=== PATIENT | male | born 1965 | race Caucasian/White ===

== ENCOUNTER 2017-10-10 18:13 | Inpatient (IN) | payer BC ==
[2017-10-10] MEDS ORDERED: MORPHINE SULFATE 10 MG/ML INJ IV ONE (19:53)
--- NOTE | 2017-10-10 19:54 | ER Document Report ---
ED Medical Screen (RME) - General Chief Complaint: Back Pain Stated Complaint: RIGHT SIDE PAIN Time Seen by Provider: 10/10/17 19:49 Mode of Arrival: Medic Information source: Patient Notes: 52-year-old male presents after mechanical fall on ice landing on his back hitting his right posterior ribs. Patient denies any shortness of breath notes pain with movement I have greeted and performed a rapid initial assessment of this patient. A comprehensive ED assessment and evaluation of the patient, analysis of test results and completion of the medical decision making process will be conducted by additional ED providers. PHYSICAL EXAMINATION: GENERAL: Well-appearing, well-nourished and in no acute distress. HEAD: Atraumatic, normocephalic. EYES: Pupils equal round extraocular movements intact, conjunctiva are normal. ENT: Nares patent NECK: Normal range of motion LUNGS: No respiratory distress Musculoskeletal: Normal range of motion NEUROLOGICAL: Normal speech, normal gait. PSYCH: Normal mood, normal affect. SKIN: Warm, Dry, normal turgor, no rashes or lesions noted. TRAVEL OUTSIDE OF THE [place] IN LAST 30 DAYS: No - Related Data Allergies/Adverse Reactions: chlorpheniramine [From Actifed Cold-Allergy] Allergy (Verified 10/10/17 19:43) phenylephrine [From Actifed Cold-Allergy] Allergy (Verified 10/10/17 19:43) pseudoephedrine [From Actifed Cold-Allergy] Allergy (Verified 10/10/17 19:43) triprolidine [From Actifed Cold-Allergy] Allergy (Verified 10/10/17 19:43) Past Medical History - Social History Chew tobacco use (# tins/day): No Frequency of alcohol use: Social Drug Abuse: None - Past Medical History Cardiac Medical History: Reports: Hx Hypercholesterolemia, Hx Hypertension Pulmonary Medical History: Reports: Hx COPD Renal/ Medical History: Denies: Hx Peritoneal Dialysis Psychiatric Medical History: Reports: Hx Depression Physical Exam - Vital signs Vitals: Temp Pulse Resp BP Pulse Ox 98.2 F 89 22 H 136/83 H 92 10/10/17 18:40 10/10/17 18:40 10/10/17 18:40 10/10/17 18:40 10/10/17 18:40 Course - Vital Signs Vital signs: Temp Pulse Resp BP Pulse Ox 98.2 F 89 22 H 136/83 H 92 10/10/17 18:40 10/10/17 18:40 10/10/17 18:40 10/10/17 18:40 10/10/17 18:40
[2017-10-10 20:49] LABS: HEMATOCRIT 53.5 % (37.9-51.0); HEMOGLOBIN 18.2 g/dL (13.5-17.0); MEAN CORPUSCULAR HEMOGLOBIN 33.5 pg (27.0-33.4); MEAN CORPUSCULAR VOLUME 99 fl (80-97); PLATELET COUNT 280 10^3/uL (150-450); RED BLOOD COUNT 5.44 10^6/uL (4.35-5.55); RED CELL DISTRIBUTION WIDTH 13.1 % (11.5-14.0); WHITE BLOOD COUNT 21.4 10^3/uL (4.0-10.5)
[2017-10-10 21:12] LABS: ABSOLUTE LYMPHOCYTES# (MANUAL) 1.1 10^3/uL (0.5-4.7); ABSOLUTE MONOCYTES # (MANUAL) 1.7 10^3/uL (0.1-1.4); ABSOLUTE NEUTROPHILS# (MANUAL) 18.6 10^3/uL (1.7-8.2); BASOPHILS % (MANUAL) 0 % (0-2); EOSINOPHILS % (MANUAL) 0 % (0-6); LYMPHOCYTES % (MANUAL) 4 % (13-45); MONOCYTES % (MANUAL) 8 % (3-13); SEGMENTED NEUTROPHILS % (MAN) 87 % (42-78); TOTAL CELLS COUNTED 100
[2017-10-10 21:16] LABS: PLATELET COMMENT ADEQUATE; PLATELET GIANT PRESENT; PLATELET LARGE PRESENT; RBC MORPHOLOGY COMMENT NORMO-CYTIC/CHROMIC
[2017-10-10 21:17] LABS: TOXIC GRANULATION 1+
[2017-10-10] MEDS ORDERED: HYDROMORPHONE HCL INJ/PF 2 MG/ML AMPULE IV PRN (21:47)
[2017-10-10] MEDS ORDERED: LIDOCAINE 5% (700 MG) TRANSDERMAL ADH..PATCH TP ONE (21:48)
--- NOTE | 2017-10-10 21:54 | ER Document Report ---
ED General - General Chief Complaint: Back Pain Stated Complaint: RIGHT SIDE PAIN Time Seen by Provider: 10/10/17 19:49 Mode of Arrival: Medic Notes: Patient is a 52 year old male with a past medical history of hypertension and COPD, active smoker, who presents after slipping on ice landing onto his right side. He states that since that time he has had a severe, constant, aching pain to his right low flank. He states it is worsened by movement and breathing. He has received morphine and states that it did not provide any meaningful relief of his pain. He has no history of similar injury in the past. He does not have a baseline oxygen dependence. He denies any additional injury to any other location. He has not seen his primary care doctor regarding today's concerns. TRAVEL OUTSIDE OF THE [place] IN LAST 30 DAYS: No - Related Data Allergies/Adverse Reactions: chlorpheniramine [From Actifed Cold-Allergy] Allergy (Verified 10/10/17 19:43) phenylephrine [From Actifed Cold-Allergy] Allergy (Verified 10/10/17 19:43) pseudoephedrine [From Actifed Cold-Allergy] Allergy (Verified 10/10/17 19:43) triprolidine [From Actifed Cold-Allergy] Allergy (Verified 10/10/17 19:43) Past Medical History - General Information source: Patient - Social History Smoking Status: Current Every Day Smoker Chew tobacco use (# tins/day): No Frequency of alcohol use: Social Drug Abuse: None Lives with: Spouse/Significant other Family History: Reviewed & Not Pertinent Patient has suicidal ideation: No Patient has homicidal ideation: No - Past Medical History Cardiac Medical History: Reports: Hx Hypercholesterolemia, Hx Hypertension Pulmonary Medical History: Reports: Hx COPD Renal/ Medical History: Denies: Hx Peritoneal Dialysis Psychiatric Medical History: Reports: Hx Depression Review of Systems - Review of Systems Notes: Constitutional: Negative for fever. Eyes: Negative for visual changes. ENT: Negative for facial injury Cardiovascular: Negative for chest injury. Respiratory: Negative for shortness of breath. Gastrointestinal: Negative for abdominal injury. Genitourinary: Negative for genital injury Musculoskeletal: Postive for Right lower rib pain Skin: Negative for laceration/abrasions. Neurological: Negative for head injury. Physical Exam - Vital signs Vitals: Temp Pulse Resp BP Pulse Ox 98.2 F 89 22 H 136/83 H 92 01/18/18 18:40 18 18:40 10/10/17 18:40 10/10/17 18:40 10/10/17 18:40 Interpretation: Hypoxic, Tachypneic Notes: PHYSICAL EXAMINATION: GENERAL: Appears to be in significant pain. HEAD: Atraumatic, normocephalic. EYES: Pupils equal round and reactive to light, extraocular movements intact, sclera anicteric, conjunctiva are normal. ENT: nares patent, no oral pharyngeal trauma. No hemotympanum, no Taylor's sign , no raccoon eyes. NECK: No midline cervical spine tenderness. Patient able to move their head to 45 bilaterally without any discomfort. LUNGS: Breath sounds clear to auscultation bilaterally and equal. No wheezes rales or rhonchi. HEART: Regular rate and rhythm without murmurs. CHEST WALL: No ecchymosis over the chest wall. Severe pain on palpation of the right lower posterior ribs. ABDOMEN: Soft, nontender, normoactive bowel sounds. No guarding, no rebound. No abdominal bruising EXTREMITIES: Normal range of motion, no pitting or edema. No long bone deformities. BACK: No midline spinal tenderness, step-offs, or deformities. NEUROLOGICAL: Face symmetric. Tongue protrudes midline. Extraocular motions intact. Pupils are 2 mm and equally reactive. Normal speech, normal gait. 5 out of 5 strength in both the distal and proximal upper and lower extremities bilaterally. Sensation is grossly intact throughout. Finger to nose testing normal. Pronator drift normal. PSYCH: Normal mood, normal affect. SKIN: Warm, Dry, normal turgor, no rashes or lesions noted. Course - Re-evaluation Re-evalutation: 10/10/17 21:54 Rib pain Patient presents after falling onto their ribs, complaining of focal pain to the affected area. Patient appears to be in extreme pain, and had mild hypoxia at time of presentation at 92% on room air. He is a smoker. Patient denies any additional injuries. He has focal pain to the ninth through 12th posterior lower ribs. Given his degree of pain hypoxemia, will proceed with CT of the chest to clarify. Will provide aggressive pain control and see if I can allow the patient to breathe in an acceptable way but anticipate he may require hospitalization 01/18/18 23:59 Patient continues to saturate 87-88% on room air. He has a multitude rib fractures on the right side. The CT is notable for extensive blebs in the left lung in particular but no evidence of a pneumothorax. Given patient's hypoxemia and ongoing pain control issues he will require hospitalization. I have increased the dosing of hydromorphone to try to improve his pain control. Will discuss with the surgeon on-call for trauma admission. 10/11/17 01:17 I have discussed with Dr. Jayjay Grove who has agreed to hospitalize the patient given his oxygen dependence and injuries. - Vital Signs Vital signs: Temp Pulse Resp BP Pulse Ox 98.2 F 78 16 115/74 91 L 10/10/17 18:40 10/10/17 22:11 10/10/17 22:49 10/10/17 22:11 10/10/17 22:49 - Laboratory Result Diagrams: 10/10/17 20:29 10/10/17 21:27 Laboratory results interpreted by me: 10/10/17 10/10/17 20:29 21:27 WBC 21.4 H Hgb 18.2 H Hct 53.5 H MCV 99 H MCH 33.5 H Seg Neuts % (Manual) 87 H Lymphocytes % (Manual) 4 L Abs Neuts (Manual) 18.6 H Abs Monocytes (Manual) 1.7 H BUN 23 H Glucose 128 H - Diagnostic Test Radiology reviewed: Image reviewed, Reports reviewed Radiology results interpreted by me: 10/11/17 00:00 CT chest: Multiple rib fractures on the right side, extensive blebs on the left lung Discharge - Discharge Clinical Impression: Multiple fractures of ribs, right side, initial encounter for closed fracture, Hypoxemia Fall Qualifiers: Encounter type: initial encounter Qualified Code(s): W19.XXXA - Unspecified fall, initial encounter Condition: Fair Disposition: ADMITTED INPATIENT Admitting Provider: Surgicalist - [facility] Unit Admitted: Surgical Floor
[2017-10-10 22:03] LABS: ALANINE AMINOTRANSFERASE 49 U/L (21-72); ALBUMIN 4.7 g/dL (3.5-5.0); ALKALINE PHOSPHATASE 108 U/L (38-126); ANION GAP 14 (5-19); ASPARTATE AMINO TRANSFERASE 46 U/L (17-59); BILIRUBIN,DIRECT 0.2 mg/dL (0.0-0.4); BILIRUBIN,TOTAL 0.4 mg/dL (0.2-1.3); BLOOD UREA NITROGEN 23 mg/dL (7-20); CALCIUM 9.9 mg/dL (8.4-10.2); CARBON DIOXIDE 23 mmol/L (22-30); CHLORIDE 105 mmol/L (98-107); GLUCOSE 128 mg/dL (75-110); POTASSIUM 4.3 mmol/L (3.6-5.0); SODIUM 142.1 mmol/L (137-145); TOTAL PROTEIN 7.8 g/dL (6.3-8.2)
[2017-10-10] MEDS ORDERED: KETOROLAC TROMETHAMINE INJ/PF 30 MG/1 ML SDV IV ONE (23:08)
--- NOTE | 2017-10-10 23:58 | RADIOLOGY REPORT (SQ) ---
EXAM DESCRIPTION: CT CHEST WITH CLINICAL HISTORY: fall on ice, right sided post rib pain COMPARISON: None. TECHNIQUE: Axial CT images of the chest were acquired after the administration of intravenous contrast. Coronal and sagittal reconstructions were obtained. This exam was performed according to our departmental dose-optimization program which includes use of Automated Exposure Control, adjustment of the mA and/or kV according to patient size and/or use of iterative reconstruction technique. FINDINGS: Neck base: Unremarkable. Mediastinum: Unremarkable. Lymph Nodes: No lymphadenopathy. Heart and pericardium: Coronary artery calcifications. Aorta: No aneurysm. Pulmonary Artery: Unremarkable. Central Airways: Patent. Pleura: No pleural effusion. Lungs: Large left upper lobe bulla favored over pneumothorax. Severe emphysema. Right lower lobe partial consolidation. Left lower lobe atelectasis. No suspicious pulmonary nodule or mass. Upper abdomen: Subcentimeter hypoattenuating lesion within the left hepatic lobe, likely a small cyst or hemangioma. 15 mm right adrenal nodule measuring 24 Hounsfield units. Nodular thickening of the left adrenal. Bones and soft tissues: Mildly displaced fractures of the right eighth, ninth, and 10th ribs. Nondisplaced fracture of the right 11th rib. IMPRESSION: Right eighth, ninth, 10th, and 11th rib fractures. Prominent left upper lobe bullous emphysema. Cystic spaces in the left upper thorax are favored to represent bulla over pneumothorax given lack of left-sided rib fractures. Bilateral lower lobe consolidation, favored to represent atelectasis over pneumonia given rib fractures. Bilateral adrenal nodules. These likely represent adrenal adenomas however may be confirmed with dedicated adrenal CT or MRI.
[2017-10-11] MEDS ORDERED: KETOROLAC TROMETHAMINE INJ/PF 30 MG/1 ML SDV IV ONE (01:40)
[2017-10-11] MEDS ORDERED: MORPHINE SULFATE 10 MG/ML INJ IV PRN (01:47)
--- NOTE | 2017-10-11 01:50 | PDOC H&P ---
History of Present Illness Patient complains of: Right-sided posterior chest pain History of Present Illness: MOHSEN EDGE is a 52 year old male status post fall on the ice landing on his right chest with associated pain. Patient was noted with decreased oxygen saturations requiring supplemental oxygen. Patient denies any other sites of pain other than very mild soreness of the right elbow. He denies any loss of consciousness. He does not hurt in his hip. No abdominal pain. Patient does drink almost every day and has had some alcohol today. Past Medical History Cardiac Medical History: Reports: Hyperlipidema, Hypertension Pulmonary Medical History: Reports: Chronic Obstructive Pulmonary Disease (COPD) Psychiatric Medical History: Reports: Depression Past Surgical History Past Surgical History: Reports: Other - Left orchiectomy in the remote past. Social History Lives with: Spouse/Significant other Smoking Status: Current Every Day Smoker Family History Family History: Reviewed & Not Pertinent Parental Family History Reviewed: No Children Family History Reviewed: No Sibling(s) Family History Reviewed.: No Medication/Allergy Allergies/Adverse Reactions: chlorpheniramine [From Actifed Cold-Allergy] Allergy (Verified 10/10/17 19:43) phenylephrine [From Actifed Cold-Allergy] Allergy (Verified 10/10/17 19:43) pseudoephedrine [From Actifed Cold-Allergy] Allergy (Verified 10/10/17 19:43) triprolidine [From Actifed Cold-Allergy] Allergy (Verified 10/10/17 19:43) Physical Exam Vital Signs: Temp Pulse Resp BP Pulse Ox 98.2 F 78 16 115/74 91 L 10/10/17 18:40 10/10/17 22:11 10/10/17 22:49 10/10/17 22:11 10/10/17 22:49 Intake & Output 10/09/17 10/10/17 10/11/17 06:59 06:59 06:59 Weight 103.1 kg General appearance: PRESENT: no acute distress, cooperative Eye exam: PRESENT: conjunctiva pink Neck exam: PRESENT: other - Supple with no vertebral tenderness. Respiratory exam: PRESENT: decreased breath sounds - Tenderness along the right posterior chest but no crepitus and no bruising. Cardiovascular exam: PRESENT: RRR Pulses: PRESENT: normal radial pulses GI/Abdominal exam: PRESENT: other - Soft, nondistended, nontender to palpation. Extremities exam: PRESENT: other - Full range of motion without pain with range of motion. Very minimal right elbow tenderness with no swelling and no bruising. Right arm neurovascularly intact distally. Neurological exam: PRESENT: alert, awake Psychiatric exam: PRESENT: appropriate affect Skin exam: PRESENT: warm Results Laboratory Results: 10/10/17 20:29 10/10/17 21:27 10/10/17 10/10/17 10/10/17 20:29 20:29 21:27 WBC 21.4 H RBC 5.44 Hgb 18.2 H Hct 53.5 H MCV 99 H MCH 33.5 H MCHC 34.0 RDW 13.1 Plt Count 280 Seg Neutrophils % Not Reportable Lymphocytes % Not Reportable Monocytes % Not Reportable Eosinophils % Not Reportable Basophils % Not Reportable Absolute Neutrophils Not Reportable Absolute Lymphocytes Not Reportable Absolute Monocytes Not Reportable Absolute Eosinophils Not Reportable Absolute Basophils Not Reportable Sodium Cancelled 142.1 Potassium Cancelled 4.3 Chloride Cancelled 105 Carbon Dioxide Cancelled 23 Anion Gap Cancelled 14 BUN Cancelled 23 H Creatinine Cancelled 1.02 Est GFR ( Amer) Cancelled > 60 Est GFR (Non-Af Amer) Cancelled > 60 Glucose Cancelled 128 H Calcium Cancelled 9.9 Total Bilirubin Cancelled 0.4 AST Cancelled 46 ALT Cancelled 49 Alkaline Phosphatase Cancelled 108 Total Protein Cancelled 7.8 Albumin Cancelled 4.7 Impressions: Chest CT 10/10/17 19:53 IMPRESSION: Right eighth, ninth, 10th, and 11th rib fractures. Prominent left upper lobe bullous emphysema. Cystic spaces in the left upper thorax are favored to represent bulla over pneumothorax given lack of left-sided rib fractures. Bilateral lower lobe consolidation, favored to represent atelectasis over pneumonia given rib fractures. Bilateral adrenal nodules. These likely represent adrenal adenomas however may be confirmed with dedicated adrenal CT or MRI. Assessment & Plan - Diagnosis (1) Multiple fractures of ribs, right side, initial encounter for closed fracture Is this a current diagnosis for this admission?: Yes Plan: Status post fall. Multiple rib fractures with atelectasis. Will admit for pain control and pulmonary toilet. Will consult hospitalist in the morning to assist us with his pulmonary management and also for possible alcohol withdrawal down the road. (2) Adrenal mass Is this a current diagnosis for this admission?: Yes Plan: Incidental finding noted on CT scan. Will obtain a MRI while he is in the hospital to evaluate these masses.
[2017-10-11] MEDS: HYDROMORPHONE HCL INJ/PF 2 MG/ML AMPULE IV PRN ×7 (03:35→23:19)
[2017-10-11] MEDS: PIPERACILLIN SODIUM/TAZOBACTAM 3.375 GM in NORMAL SALINE 100 ML IV SCH ×3 (09:25→20:07)
--- NOTE | 2017-10-11 09:54 | RADIOLOGY REPORT (SQ) ---
EXAM DESCRIPTION: MRI ABDOMEN WITHOUT COMPLETED DATE/TIME: 10/11/2017 9:07 am REASON FOR STUDY: Adrenal masses COMPARISON: CT chest 10/10/2017 TECHNIQUE: Noncontrast imaging with attention to the adrenal glands, including in and out of phase T 1 sequences. LIMITATIONS: None. FINDINGS: ADRENAL GLANDS: On the right side, a 1.5 cm adenoma is present. On the left side, a 2.5 x 2 cm adenoma is present. These findings correlate with the CT 10/10/2017. No further specific imagi ng follow-up imaging is required GALLBLADDER: No masses. No stones. No gallbladder wall thickening or pericholecystic fluid. LIVER AND BILIARY STRUCTURES: Normal. No ductal dilatation. SPLEEN: Normal. PANCREAS: Normal. Peripancreatic tissues normal. PERITONEUM: No ascites, gross adenopathy or implants. OTHER: Kidneys are unremarkable. No upper abdominal free fluid. There are right lower posterolateral rib fractures with a small amount of adjacent chest wall fluid. No pleural effusion. There is dense consolidation in the right lower lobe and patchy consolidation at the left base, atelectasis versus pneumonia. IMPRESSION: Bilateral adrenal adenomas Right lower posterior rib fractures. No right kidney or liver laceration Dense consolidation right lower lobe, patchy consolidation left base, atelectasis versus pneumonia TECHNICAL DOCUMENTATION: JOB ID: [id number] [employer]- All Rights Reserved
[2017-10-11] MEDS: FAMOTIDINE 20 MG TABLET PO SCH ×2 (11:17→21:37)
[2017-10-11] MEDS: LIDOCAINE 5% (700 MG) TRANSDERMAL ADH..PATCH TP SCH (11:18)
[2017-10-11] MEDS: ENOXAPARIN SODIUM INJ 40 MG/0.4 ML DISP.SYRIN SUBCUT SCH (11:19)
[2017-10-11] MEDS: FLUOXETINE HCL 20 MG CAPSULE PO SCH (21:37)
[2017-10-11] MEDS ORDERED: ATORVASTATIN CALCIUM 10 MG TABLET PO SCH (22:00)
[2017-10-11] MEDS ORDERED: (PENDING PHARMACY ID) (Fluoxetine Hcl [Prozac] 20 MG) PO SCH (22:00)
[2017-10-11] MEDS: BUDESONIDE/FORMOTEROL 80-4.5 MCG 60 PUFF/6.9 GM MDI IH SCH (23:18)
[2017-10-12] MEDS: PIPERACILLIN SODIUM/TAZOBACTAM 3.375 GM in NORMAL SALINE 100 ML IV SCH ×4 (02:06→20:31)
[2017-10-12] MEDS: HYDROMORPHONE HCL INJ/PF 2 MG/ML AMPULE IV PRN ×3 (03:54→11:35)
[2017-10-12 07:10] LABS: HEMATOCRIT 49.5 % (37.9-51.0); HEMOGLOBIN 16.9 g/dL (13.5-17.0); MEAN CORPUSCULAR HEMOGLOBIN 33.9 pg (27.0-33.4); MEAN CORPUSCULAR HGB CONC 34.2 g/dL (32.0-36.0); MEAN CORPUSCULAR VOLUME 99 fl (80-97); PLATELET COUNT 230 10^3/uL (150-450); RED BLOOD COUNT 4.99 10^6/uL (4.35-5.55); RED CELL DISTRIBUTION WIDTH 13.1 % (11.5-14.0); WHITE BLOOD COUNT 19.6 10^3/uL (4.0-10.5)
[2017-10-12 07:36] LABS: ANION GAP 15 (5-19); BLOOD UREA NITROGEN 47 mg/dL (7-20); CARBON DIOXIDE 24 mmol/L (22-30); CHLORIDE 102 mmol/L (98-107); GLUCOSE 111 mg/dL (75-110); POTASSIUM 4.3 mmol/L (3.6-5.0)
[2017-10-12] MEDS ORDERED: NORMAL SALINE 1000 ML 1,000 ML IV PRN (08:49)
[2017-10-12] MEDS ORDERED: DIAZEPAM 2 MG TABLET PO PRN (09:14)
[2017-10-12] MEDS ORDERED: LEVALBUTEROL HCL NEB 1.25 MG/3 ML AMPUL NEB PRN (09:14)
[2017-10-12] MEDS: LIDOCAINE 5% (700 MG) TRANSDERMAL ADH..PATCH TP SCH (09:44)
[2017-10-12] MEDS: FLUOXETINE HCL 20 MG CAPSULE PO SCH (09:46)
[2017-10-12] MEDS: BUDESONIDE/FORMOTEROL 80-4.5 MCG 60 PUFF/6.9 GM MDI IH SCH (09:47)
[2017-10-12] MEDS: FAMOTIDINE 20 MG TABLET PO SCH (09:47)
[2017-10-12] MEDS ORDERED: AMLODIPINE BESYLATE 5 MG TABLET PO SCH (10:00)
[2017-10-12] MEDS ORDERED: IPRATROPIUM/ALBUTEROL 0.5-2.5 MG/3 ML AMPUL NEB ONE (10:00)
[2017-10-12] MEDS ORDERED: GUAIFENESIN 600 MG TABLET.SA PO SCH (10:00)
[2017-10-12] MEDS ORDERED: MULTIVITAMIN TABLET PO SCH (10:00)
[2017-10-12] MEDS ORDERED: ATENOLOL 50 MG TABLET PO SCH (10:00)
[2017-10-12] MEDS ORDERED: ASPIRIN 81 MG TABLET, ENT COATED PO SCH (10:00)
--- NOTE | 2017-10-12 10:03 | RADIOLOGY REPORT (SQ) ---
EXAM DESCRIPTION: CHEST SINGLE VIEW COMPLETED DATE/TIME: 10/12/2017 9:43 am REASON FOR STUDY: dyspnea, known rt rib fractures COMPARISON: CT chest from 10/10/2017 EXAM PARAMETERS: NUMBER OF VIEWS: One view. TECHNIQUE: Single frontal radiographic view of the chest acquired. RADIATION DOSE: NA LIMITATIONS: None. FINDINGS: LUNGS AND PLEURA: Jacob greater than left lower lobe airspace disease. No pneumothorax. S table underlying emphysema. MEDIASTINUM AND HILAR STRUCTURES: No masses. Contour normal. HEART AND VASCULAR STRUCTURES: Heart normal in size. Normal vasculature. BONES: Again noted are several right-sided rib fractures. HARDWARE: None in the chest. OTHER: No other significant finding. IMPRESSION: RIGHT GREATER THAN LEFT LOWER LOBE AIRSPACE DISEASE IN THE SETTING OF KNOWN RIB FRACTURE S. DIFFERENTIAL INCLUDES SUBSEGMENTAL ATELECTASIS, ASPIRATION, CONTUSION, OR PNEUMONIA. NO PNEUMOTH ORAX. TECHNICAL DOCUMENTATION: JOB ID: [id number] [employer]- All Rights Reserved
--- NOTE | 2017-10-12 10:39 | PDOC PROGRESS REPORT ---
Subjective Progress Note for:: 10/12/17 Subjective:: c/o right back pain Reason For Visit: RIGHT SIDED RIB FRACTURES, ATELECTASIS, COPD Physical Exam Vital Signs: Temp Pulse Resp BP Pulse Ox 97.9 F 107 H 24 H 162/95 H 83 L 10/12/17 07:38 10/12/17 07:38 10/12/17 07:38 10/12/17 07:38 10/12/17 07:38 Intake & Output 10/11/17 10/12/17 10/13/17 06:59 06:59 06:59 Intake Total 360 Output Total 325 Balance 35 Weight 107 kg Respiratory exam: PRESENT: chest wall tenderness - on posterior right, clear to auscultation celia Cardiovascular exam: PRESENT: RRR GI/Abdominal exam: PRESENT: soft Results Laboratory Results: 10/12/17 06:37 10/12/17 06:37 10/12/17 10/12/17 06:37 06:37 WBC 19.6 H RBC 4.99 Hgb 16.9 Hct 49.5 MCV 99 H MCH 33.9 H MCHC 34.2 RDW 13.1 Plt Count 230 Sodium 141.0 Potassium 4.3 Chloride 102 Carbon Dioxide 24 Anion Gap 15 BUN 47 H Creatinine 1.32 H Est GFR ( Amer) > 60 Est GFR (Non-Af Amer) 57 L Glucose 111 H Calcium 10.0 Impressions: Chest CT 10/10/17 19:53 IMPRESSION: Right eighth, ninth, 10th, and 11th rib fractures. Prominent left upper lobe bullous emphysema. Cystic spaces in the left upper thorax are favored to represent bulla over pneumothorax given lack of left-sided rib fractures. Bilateral lower lobe consolidation, favored to represent atelectasis over pneumonia given rib fractures. Bilateral adrenal nodules. These likely represent adrenal adenomas however may be confirmed with dedicated adrenal CT or MRI. Abdomen MRI 10/11/17 00:00 IMPRESSION: Bilateral adrenal adenomas Right lower posterior rib fractures. No right kidney or liver laceration Dense consolidation right lower lobe, patchy consolidation left base, atelectasis versus pneumonia Chest X-Ray 10/12/17 00:00 IMPRESSION: RIGHT GREATER THAN LEFT LOWER LOBE AIRSPACE DISEASE IN THE SETTING OF KNOWN RIB FRACTURES. DIFFERENTIAL INCLUDES SUBSEGMENTAL ATELECTASIS, ASPIRATION, CONTUSION, OR PNEUMONIA. NO PNEUMOTHORAX. Assessment & Plan - Diagnosis (2) Multiple fractures of ribs, right side, initial encounter for closed fracture Is this a current diagnosis for this admission?: Yes - Plan Summary Plan Summary: Continue pain management for right posterior rib fx, improved leukocytosis right infiltrate, possible pneumonia Consult Hospitalist for pneumonia antibiotic coverage
[2017-10-12] MEDS ORDERED: HYDRALAZINE HCL INJ/PF 20 MG/1 ML SDV IV PRN (10:47)
[2017-10-12 11:02] LABS: ARTERIAL BLOOD BASE EXCESS -2.4 mmol/L; ARTERIAL BLOOD FIO2 100%; ARTERIAL BLOOD H2CO3 1.31 mmol/L (1.05-1.35); ARTERIAL BLOOD HCO3 23.4 mmol/L (20-26); ARTERIAL BLOOD O2 SATURATION 90.2 % (94-98); ARTERIAL BLOOD PCO2 43.5 mmHg (35-45); ARTERIAL BLOOD PH 7.35 (7.35-7.45); ARTERIAL BLOOD PO2 61.1 mmHg (80-100); ARTERIAL BLOOD TOTAL CO2 24.7 mmol/L (23-27)
[2017-10-12] MEDS ORDERED: SUCCINYLCHOLINE CHLORIDE INJ 200 MG/10 ML VIAL ONE (13:58)
[2017-10-12] MEDS ORDERED: METHYLPREDNISOLONE INJ 125 MG/2 ML SDV IV SCH ×2 (14:15→22:00)
[2017-10-12] MEDS ORDERED: METHYLPREDNISOLONE INJ 125 MG/2 ML SDV IV ONE (15:00)
[2017-10-12] MEDS ORDERED: METHYLPREDNISOLONE INJ 40 MG/1 ML SDV IV ONE (15:00)
[2017-10-12] MEDS ORDERED: LEVOFLOXACIN 750 MG/D5W RTU 750 MG/150 ML RTUPB IV SCH (15:00)
[2017-10-12] MEDS: LEVALBUTEROL HCL NEB 1.25 MG/3 ML AMPUL NEB SCH ×3 (15:49→23:24)
[2017-10-12] MEDS ORDERED: IPRATROPIUM/ALBUTEROL 0.5-2.5 MG/3 ML AMPUL NEB SCH (16:00)
--- NOTE | 2017-10-12 16:16 | RADIOLOGY REPORT (SQ) ---
EXAM DESCRIPTION: CHEST SINGLE VIEW COMPLETED DATE/TIME: 10/12/2017 4:03 pm REASON FOR STUDY: hypoxia COMPARISON: Chest radiograph 10/12/[address] 10/10/2017 EXAM PARAMETERS: NUMBER OF VIEWS: One view. TECHNIQUE: Single frontal radiographic view of the chest acquired. RADIATION DOSE: NA LIMITATIONS: None. FINDINGS: LUNGS AND PLEURA: Stable right greater than left lung base opacities. Background of emphy sematous changes with marked left apical architectural distortion. No evidence of superimposed pneum othorax. No large pleural effusion evident. MEDIASTINUM AND HILAR STRUCTURES: Stable. HEART AND VASCULAR STRUCTURES: Heart normal in size. Normal vasculature. BONES: Previously described rib fractures are again noted. HARDWARE: None in the chest. OTHER: No other significant finding. IMPRESSION: Stable radiographic appearance of the chest again demonstrating bibasilar airspace opaci ties. TECHNICAL DOCUMENTATION: JOB ID: [id number] [employer]- All Rights Reserved
[2017-10-12] MEDS: ENOXAPARIN SODIUM INJ 40 MG/0.4 ML DISP.SYRIN SUBCUT SCH (16:29)
[2017-10-12] MEDS ORDERED: NICOTINE 21 MG/24 HR PATCH.TD24 TD PRN (16:39)
[2017-10-12 16:47] LABS: ARTERIAL BLOOD BASE EXCESS 1.5 mmol/L; ARTERIAL BLOOD H2CO3 1.34 mmol/L (1.05-1.35); ARTERIAL BLOOD HCO3 26.8 mmol/L (20-26); ARTERIAL BLOOD O2 SATURATION 89.4 % (94-98); ARTERIAL BLOOD PCO2 44.5 mmHg (35-45); ARTERIAL BLOOD PO2 56.8 mmHg (80-100); ARTERIAL BLOOD TOTAL CO2 28.2 mmol/L (23-27)
[2017-10-12 16:48] LABS: ARTERIAL BLOOD FIO2 100%
--- NOTE | 2017-10-12 16:51 | PDOC CONSULTATION ---
Consultation Consult Date: 10/12/17 Attending physician:: DR Dao Consult reason:: management pneumonia - hypoxemia History of Present Illness Admission Date/PCP: 10/11/17 01:40 History of Present Illness: MOHSEN EDGE is a 52 year old male status post fall on the ice Patient stated that he slipped and injured the right chest He presented to the ED and was diagnosed to have multiple rib fractures -eighth through 11- And bilateral pneumonia Patient was admitted to the telemetry unit; he developed profound hypoxemia and hospitalist consult was called. Past Medical History Cardiac Medical History: Reports: Hyperlipidema, Hypertension Pulmonary Medical History: Reports: Chronic Obstructive Pulmonary Disease (COPD) Psychiatric Medical History: Reports: Depression Past Surgical History Past Surgical History: Reports: Other - Left orchiectomy in the remote past. Social History Lives with: Spouse/Significant other Smoking Status: Current Every Day Smoker Family History Family History: Reviewed & Not Pertinent Parental Family History Reviewed: Yes Children Family History Reviewed: Yes Sibling(s) Family History Reviewed.: Yes Medication/Allergy Home Medications: Amlodipine Besylate [Norvasc 5 mg Tablet] 5 mg PO DAILY 10/11/17 Aspirin [Aspirin EC] 81 mg PO DAILY 10/11/17 Atenolol [Tenormin 50 mg Tablet] 50 mg PO DAILY 10/11/17 Atorvastatin Calcium [Lipitor 10 mg Tablet] 10 mg PO QHS 10/11/17 Budesonide/Formoterol Fumarate [Symbicort Hfa 80-4.5 Mcg Inhaler 6.9 gm] 2 puff IH Q12 10/11/17 Fluoxetine HCl [Prozac] 20 mg PO Q12 10/11/17 Multivitamin [Tab-A-Piotr (Multiple Vitamin) Tablet] 1 tab PO DAILY 10/11/17 Allergies/Adverse Reactions: chlorpheniramine [From Actifed Cold-Allergy] Allergy (Verified 10/10/17 19:43) phenylephrine [From Actifed Cold-Allergy] Allergy (Verified 10/10/17 19:43) pseudoephedrine [From Actifed Cold-Allergy] Allergy (Verified 10/10/17 19:43) triprolidine [From Actifed Cold-Allergy] Allergy (Verified 10/10/17 19:43) Review of Systems Constitutional: ABSENT: as per HPI, anorexia, chills, fatigue, fever(s), headache(s), night sweats, weakness, weight gain, weight loss, other Respiratory: PRESENT: cough, dyspnea, other - Severe pleuritic chest pain Gastrointestinal: ABSENT: as per HPI, abdominal pain, bloating, coffee ground emesis, constipation, diarrhea, dysphagia, heartburn, hematemesis, hematochezia , melena, nausea, vomiting, other Genitourinary: ABSENT: dysuria, hematuria Integumentary: ABSENT: rash, wounds Neurological: ABSENT: abnormal gait, abnormal speech, confusion, dizziness, focal weakness, syncope Psychiatric: ABSENT: anxiety, depression, homidical ideation, suicidal ideation Hematologic/Lymphatic: ABSENT: easy bleeding, easy bruising Physical Exam Vital Signs: Temp Pulse Resp BP Pulse Ox 99.5 F 89 18 137/85 H 90 L 10/12/17 15:33 10/12/17 15:33 10/12/17 15:33 10/12/17 15:33 10/12/17 16:00 Pulse Oximeter Continuous Start: 10/12/17 12: 40 Freq: RTQ4 Status: Active Document 10/12/17 16:00 [facility] (Rec: 10/12/17 16:25 [facility] [email or web address]) Pulse Oximetry Assessment Oxygen Saturation (92-100) 90 Oxygen Delivery Method Bi-pap Fraction of Inspired Oxygen (FIO2) 100 Equipment Usage Equipment in Use Continuous SpO2 Machine # [id number] Intake & Output 10/11/17 10/12/17 10/13/17 00:59 00:59 00:59 Intake Total 0 360 Output Total 325 Balance 0 35 Weight 107 kg General appearance: PRESENT: severe distress, well-developed, well-nourished Head exam: PRESENT: atraumatic, normocephalic Eye exam: PRESENT: conjunctiva pink, EOMI, PERRLA. ABSENT: scleral icterus Ear exam: PRESENT: normal external ear exam Mouth exam: PRESENT: moist, tongue midline Neck exam: ABSENT: carotid bruit, JVD, lymphadenopathy, thyromegaly Respiratory exam: PRESENT: decreased breath sounds, rhonchi, wheezes. ABSENT: rales Cardiovascular exam: PRESENT: RRR, tachycardia. ABSENT: diastolic murmur, rubs , systolic murmur Pulses: PRESENT: normal dorsalis pedis pul Vascular exam: PRESENT: normal capillary refill GI/Abdominal exam: PRESENT: normal bowel sounds, soft. ABSENT: distended, guarding, mass, organolmegaly, rebound, tenderness Rectal exam: PRESENT: deferred Extremities exam: PRESENT: full ROM. ABSENT: calf tenderness, clubbing, pedal edema Neurological exam: PRESENT: alert, awake, oriented to person, oriented to place , oriented to time, oriented to situation, CN II-XII grossly intact. ABSENT: motor sensory deficit Psychiatric exam: PRESENT: appropriate affect, normal mood Skin exam: PRESENT: dry, intact, warm. ABSENT: cyanosis, rash Results Laboratory Results: 10/12/17 06:37 10/12/17 06:37 10/12/17 10/12/17 10/12/17 06:37 06:37 10:40 WBC 19.6 H RBC 4.99 Hgb 16.9 Hct 49.5 MCV 99 H MCH 33.9 H MCHC 34.2 RDW 13.1 Plt Count 230 Carbonic Acid 1.31 HCO3/H2CO3 Ratio 17:1 ABG pH 7.35 ABG pCO2 43.5 ABG pO2 61.1 L ABG HCO3 23.4 ABG O2 Saturation 90.2 L ABG Base Excess -2.4 FiO2 100% Sodium 141.0 Potassium 4.3 Chloride 102 Carbon Dioxide 24 Anion Gap 15 BUN 47 H Creatinine 1.32 H Est GFR ( Amer) > 60 Est GFR (Non-Af Amer) 57 L Glucose 111 H Calcium 10.0 10/12/17 16:19 WBC RBC Hgb Hct MCV MCH MCHC RDW Plt Count Carbonic Acid 1.34 HCO3/H2CO3 Ratio 20:1 ABG pH 7.40 ABG pCO2 44.5 ABG pO2 56.8 L ABG HCO3 26.8 H ABG O2 Saturation 89.4 L ABG Base Excess 1.5 FiO2 100% Sodium Potassium Chloride Carbon Dioxide Anion Gap BUN Creatinine Est GFR ( Amer) Est GFR (Non-Af Amer) Glucose Calcium Impressions: Chest CT 10/10/17 19:53 IMPRESSION: Right eighth, ninth, 10th, and 11th rib fractures. Prominent left upper lobe bullous emphysema. Cystic spaces in the left upper thorax are favored to represent bulla over pneumothorax given lack of left-sided rib fractures. Bilateral lower lobe consolidation, favored to represent atelectasis over pneumonia given rib fractures. Bilateral adrenal nodules. These likely represent adrenal adenomas however may be confirmed with dedicated adrenal CT or MRI. Abdomen MRI 10/11/17 00:00 IMPRESSION: Bilateral adrenal adenomas Right lower posterior rib fractures. No right kidney or liver laceration Dense consolidation right lower lobe, patchy consolidation left base, atelectasis versus pneumonia Chest X-Ray 10/12/17 00:00 IMPRESSION: Stable radiographic appearance of the chest again demonstrating bibasilar airspace opacities. Assessment & Plan - Diagnosis (1) Fall Qualifiers: Encounter type: initial encounter Qualified Code(s): W19.XXXA - Unspecified fall, initial encounter (2) Multiple fractures of ribs, right side, initial encounter for closed fracture Is this a current diagnosis for this admission?: Yes (3) Pneumonia Qualifiers: Aspiration pneumonia type: unspecified Lung location: unspecified part of lung Is this a current diagnosis for this admission?: Yes Plan: We will treat with Zosyn and Levaquin (4) Fracture, ribs Is this a current diagnosis for this admission?: Yes Plan: Incentive spirometry ; management as per surgery (5) COPD exacerbation Is this a current diagnosis for this admission?: Yes Plan: Treat the patient with steroids and nebs (6) Acute on chronic respiratory failure with hypoxemia Is this a current diagnosis for this admission?: Yes Plan: Secondary to rib fractures, pneumonia, and COPD exacerbation Patient is a candidate for high flow nasal cannula - Time Time Spent: 50 to 70 Minutes
[2017-10-12] MEDS ORDERED: FUROSEMIDE INJ/PF 40 MG/4 ML SDV IV ONE (17:00)
[2017-10-12] MEDS ORDERED: PHARMACY COMMUNICATION ORDER MC NR (17:15)
[2017-10-12] MEDS ORDERED: LORAZEPAM INJ 2 MG/1 ML VIAL ONE (17:32)
[2017-10-12] MEDS ORDERED: PROPOFOL 100 ML IV ONE (17:40)
[2017-10-12] MEDS ORDERED: VECURONIUM BROMIDE INJ 10 MG VIAL IV ONE (17:53)
--- NOTE | 2017-10-12 17:54 | Progress Note ---
Provider Note Provider Note: The patient became more hypoxic despite being on a nonrebreather. He was put on BiPAP with pressure settings of 12 x 8 FiO2 of 100% but remained persistently hypoxic. There were concerns with going up on the pressure on BiPAP given the numerous blebs in his left lung and the high risk of pneumothorax. I transferred the patient to the intensive care unit for intubation. This is happening as I dictate the note. The ER edition Dr. Se Alberto, the surgeon Dr. Aguayo's alert no and the urogynaecologist city distribution clerk or all at the patient's bedside. I am in the process of requesting transfer to a tertiary care center given the high risk vent management in this patient with severe underlying emphysema. I spoke to the transfer center at [facility] and also at [facility]. Was told that there intensive care units are at full capacity at present but that they will put me in touch with their cake froster city distribution clerk. I also spoke to the patient's sister and gave her an update of the patient's condition and plan of care.
[2017-10-12] MEDS ORDERED: PROPOFOL 100 ML IV PRN (18:14)
[2017-10-12] MEDS ORDERED: MORPHINE SULFATE 10 MG/ML INJ ONE (18:18)
--- NOTE | 2017-10-12 18:47 | RADIOLOGY REPORT (SQ) ---
EXAM DESCRIPTION: CHEST SINGLE VIEW COMPLETED DATE/TIME: 10/12/2017 6:14 pm REASON FOR STUDY: ET tube Placement COMPARISON: 10/12/2017 EXAM PARAMETERS: NUMBER OF VIEWS: One view. TECHNIQUE: Single frontal radiographic view of the chest acquired. RADIATION DOSE: NA LIMITATIONS: None. FINDINGS: LUNGS AND PLEURA: Bibasilar opacities. No pneumothorax. No large pleural effusion eviden t. Background of emphysematous changes. MEDIASTINUM AND HILAR STRUCTURES: Stable. HEART AND VASCULAR STRUCTURES: Heart normal in size. Normal vasculature. BONES: No acute findings. HARDWARE: Interval placement of an endotracheal tube which terminates approximately 2 to 2-1/2 cm pro ximal to the johnnie. Interval placement of an enteric tube with the tip and proximal port projecting subdiaphragmatically within the left upper quadrant. OTHER: No other significant finding. IMPRESSION: 1. Stable pulmonary exam. 2. Interval placement of endotracheal and enteric tubes without evidence of complication. TECHNICAL DOCUMENTATION: JOB ID: [id number] [employer] All Rights Reserved
[2017-10-12 19:32] LABS: ARTERIAL BLOOD BASE EXCESS -2.2 mmol/L; ARTERIAL BLOOD H2CO3 1.97 mmol/L (1.05-1.35); ARTERIAL BLOOD HCO3 27.1 mmol/L (20-26); ARTERIAL BLOOD O2 SATURATION 87.4 % (94-98); ARTERIAL BLOOD PCO2 65.5 mmHg (35-45); ARTERIAL BLOOD PH 7.24 (7.35-7.45); ARTERIAL BLOOD TOTAL CO2 29.1 mmol/L (23-27)
[2017-10-12 19:33] LABS: ARTERIAL BLOOD FIO2 100%
[2017-10-12] MEDS ORDERED: NORMAL SALINE 500 ML with ROCURONIUM BROMIDE 500 MG IV PRN ×2 (20:32)
[2017-10-12 21:00] LABS: ARTERIAL BLOOD BASE EXCESS 0.4 mmol/L; ARTERIAL BLOOD H2CO3 1.39 mmol/L (1.05-1.35); ARTERIAL BLOOD HCO3 26.2 mmol/L (20-26); ARTERIAL BLOOD O2 SATURATION 87.8 % (94-98); ARTERIAL BLOOD PCO2 46.1 mmHg (35-45); ARTERIAL BLOOD PH 7.37 (7.35-7.45); ARTERIAL BLOOD PO2 55.3 mmHg (80-100); ARTERIAL BLOOD TOTAL CO2 27.6 mmol/L (23-27)
[2017-10-12 21:01] LABS: ARTERIAL BLOOD FIO2 100
[2017-10-12 21:17] VITALS: BP 103/64
--- NOTE | 2017-10-12 21:39 | TRANSFER SUMMARY E ---
Transfer Summary NAME: MOHSEN EDGE : 1965 AGE: 52Y ADMITTED: 10/10/2017 TRANSFERRED: 10/12/2017 FINAL DIAGNOSIS: 1. Fall. 2. Right posterior rib fracture multiple. 3. Bullous disease of lungs. 4. COPD. 5. Severe respiratory failure. PROCEDURE: None. HOSPITAL COURSE: This is a 52-year-old male who fell on his right back while walking on ice. He presented to the emergency room on 10/10, early in the morning with posterior chest pain. A chest x-ray was done revealing multiple rib fractures. A CT scan of the chest was done as well revealing multiple rib fractures, no pneumothorax, no hemothorax, and severe bullous disease of the left lung together with bilateral lobe infiltrates. The patient was admitted, started on IV antibiotics and IV fluid maintenance. He was also started on pain medications, intravenous as well as topical lidocaine patches for his rib fracture/chest pain. During the hospital the patient's chest x-ray was monitored daily and on 10/12, the patient presented with a markedly increased white blood cell count about 19,000 and a chest x-ray also presented with a worsening of the infiltrate on the right lower lobe. The medical service was consulted. The patient was started on appropriate IV antibiotics for pneumonia, transferred to the intermediate unit, because his pulse oximeter room air was 89%. Subsequently the patient's respiratory status worsened during the afternoon on 10/12, and he was transferred to the ICU. Soon after his transfer the patient presented with severe respiratory distress, agitation. His pulse oximetry at room air was in the low 80s. The patient was emergently intubated by the nurse paper sorter and counter on-call. Chest x-ray was obtained revealing good ET tube position, no pneumothorax, and at the same a nasogastric tube and Renner catheter were inserted. The patient became difficult to oxygenate and despite maximizing the ventilatory settings with an FiO2 to 100%, respiratory rate of 12, tidal volume of 500, and PEEP of 12 his saturation was still in the mid to high 80s. A decision was made to transfer the patient to a tertiary center with a higher level of expertise. [facility] called and a conversation was entertained with Dr. Epps, and the patient was then accepted for transfer. [facility] will arrange for transportation and a copy of the medical records will be made available for [facility]. DICTATING PHYSICIAN: ANGIE GUEVARA M.D. [id number] PHY#: [id number] ID: [id number] JOB#: [id number] ACCT: [id number] cc:ANGIE GUEVARA M.D. >
[2017-10-12] MEDS ORDERED: METHYLPREDNISOLONE INJ 40 MG/1 ML SDV IV SCH (22:00)
--- NOTE | 2017-10-12 22:16 | EKG REPORT ---
SEVERITY:- ABNORMAL ECG - SINUS RHYTHM PROBABLE INFERIOR INFARCT, OLD : Confirmed by: Simon Samuel 12-Oct-2017 22:15:47
[2017-10-12] MEDS ORDERED: DIAZEPAM 2 MG TABLET NG PRN (23:00)
[2017-10-13] MEDS ORDERED: AMLODIPINE BESYLATE 5 MG TABLET NG SCH (10:00)
[2017-10-13] MEDS ORDERED: ASPIRIN 81 MG TABLET, CHEWABLE NG SCH (10:00)
[2017-10-13] MEDS ORDERED: ATENOLOL 50 MG TABLET NG SCH (10:00)
[2017-10-13] MEDS ORDERED: FLUOXETINE HCL 20 MG CAPSULE NG SCH (10:00)
[2017-10-13] MEDS ORDERED: FAMOTIDINE 20 MG TABLET NG SCH (10:00)
--- NOTE | 2017-10-13 18:47 | PDOC CONSULTATION ---
Consultation Consult Date: 10/12/17 Attending physician:: NOEMÍ STRAUSS Consult reason:: resp failure copd pna History of Present Illness Admission Date/PCP: 10/11/17 01:40 History of Present Illness: all information from chart:MOHSEN EDGE is a 52 year old male status post fall on the ice Patient stated that he slipped and injured the right chest He presented to the ED and was diagnosed to have multiple rib fractures -eighth through 11- And bilateral pneumonia Patient was admitted to the telemetry unit; he developed profound hypoxemia and hospitalist consult was called.Patient was sent to ICU intubated and sedated Past Medical History Cardiac Medical History: Reports: Hyperlipidema, Hypertension Pulmonary Medical History: Reports: Chronic Obstructive Pulmonary Disease (COPD) EENT Medical History: Denies: Ears, Nose Neurological Medical History: Denies: Multiple Sclerosis, Seizures Endocrine Medical History: Denies: Gestational Diabetes Renal/ Medical History: Denies: Nephrolithiasis Skin Medical History: Denies: Psoriasis Psychiatric Medical History: Reports: Depression Traumatic Medical History: Denies: Traumatic Brain Injury Hematology: Denies: Sickle Cell Disease Infectious Medical History: Denies: Hepatitis B, Hepatitis C Past Surgical History Past Surgical History: Reports: Other - Left orchiectomy in the remote past. Social History Information Source: [facility] Records Lives with: Spouse/Significant other Smoking Status: Current Every Day Smoker Passive smoke exposure as: Both Drugs: None Hx Prescription Drug Abuse: No Have you had any respiratory illnesses as a child?: No Have you been exposed to any sick contacts recently?: No Have you had any recent respiratory illnesses?: No - Advance Directive Resuscitation Status: Full Code Family History Parental Family History Reviewed: No Children Family History Reviewed: No Sibling(s) Family History Reviewed.: No Medication/Allergy Home Medications: Amlodipine Besylate [Norvasc 5 mg Tablet] 5 mg PO DAILY 10/11/17 Aspirin [Aspirin EC] 81 mg PO DAILY 10/11/17 Atenolol [Tenormin 50 mg Tablet] 50 mg PO DAILY 10/11/17 Atorvastatin Calcium [Lipitor 10 mg Tablet] 10 mg PO QHS 10/11/17 Budesonide/Formoterol Fumarate [Symbicort Hfa 80-4.5 Mcg Inhaler 6.9 gm] 2 puff IH Q12 10/11/17 Fluoxetine HCl [Prozac] 20 mg PO Q12 10/11/17 Multivitamin [Tab-A-Piotr (Multiple Vitamin) Tablet] 1 tab PO DAILY 10/11/17 Allergies/Adverse Reactions: chlorpheniramine [From Actifed Cold-Allergy] Allergy (Verified 10/10/17 19:43) phenylephrine [From Actifed Cold-Allergy] Allergy (Verified 10/10/17 19:43) pseudoephedrine [From Actifed Cold-Allergy] Allergy (Verified 10/10/17 19:43) triprolidine [From Actifed Cold-Allergy] Allergy (Verified 10/10/17 19:43) Review of Systems ROS unobtainable: Due to endotracheal tube Physical Exam Vital Signs: Temp Pulse Resp BP Pulse Ox 98.6 F 87 42 H 103/64 82 L 10/12/17 20:00 10/12/17 20:00 10/12/17 20:00 10/12/17 20:00 10/12/17 20:00 Pulse Oximeter Continuous Start: 10/12/17 12: 40 Freq: RTQ4 Status: Complete Document 10/12/17 16:00 [facility] (Rec: 10/12/17 16:25 [facility] [email or web address]) Pulse Oximetry Assessment Oxygen Saturation (92-100) 90 Oxygen Delivery Method Bi-pap Fraction of Inspired Oxygen (FIO2) 100 Equipment Usage Equipment in Use Continuous SpO2 Machine # [id number] Intake & Output 10/11/17 10/12/17 10/13/17 06:59 06:59 06:59 Intake Total 360 Output Total 325 445 Balance 35 -445 Weight 107 kg General appearance: PRESENT: no acute distress, disheveled, obese. ABSENT: cooperative, mild distress, morbidly obese, severe distress Head exam: PRESENT: atraumatic, normocephalic Eye exam: PRESENT: conjunctiva pale. ABSENT: conjunctival injection, conjunctiva pink, EOMI, nystagmus, periorbital swelling, scleral icterus Mouth exam: PRESENT: dry mucosa, neck supple, tongue midline, other - ET tube. ABSENT: laceration, moist Neck exam: ABSENT: carotid bruit, JVD, lymphadenopathy, thyromegaly, tracheal deviation, tracheostomy Respiratory exam: PRESENT: decreased breath sounds, prolonged expiratory phas, rales, rhonchi, symmetrical, unlabored, other - post rib fx w/o paradox. ABSENT : accessory muscle use, clear to auscultation celia, crackles, retraction, stridor , tachypnea Cardiovascular exam: PRESENT: RRR, +S1, +S2. ABSENT: rubs Pulses: PRESENT: normal radial pulses GI/Abdominal exam: PRESENT: diminished bowel sounds, soft Extremities exam: ABSENT: clubbing, joint swelling Musculoskeletal exam: ABSENT: deformity, dislocation Neurological exam: ABSENT: alert, awake Skin exam: PRESENT: dry, warm Results Laboratory Results: 10/12/17 06:37 10/12/17 06:37 10/12/17 10/12/17 10/12/17 06:37 06:37 06:37 WBC 19.6 H RBC 4.99 Hgb 16.9 Hct 49.5 MCV 99 H MCH 33.9 H MCHC 34.2 RDW 13.1 Plt Count 230 Carbonic Acid HCO3/H2CO3 Ratio ABG pH ABG pCO2 ABG pO2 ABG HCO3 ABG O2 Saturation ABG Base Excess FiO2 Sodium 141.0 Potassium 4.3 Chloride 102 Carbon Dioxide 24 Anion Gap 15 BUN 47 H Creatinine 1.32 H Est GFR ( Amer) > 60 Est GFR (Non-Af Amer) 57 L Glucose 111 H Calcium 10.0 Triglycerides 72 10/12/17 10/12/17 10/12/17 10:40 16:19 18:50 WBC RBC Hgb Hct MCV MCH MCHC RDW Plt Count Carbonic Acid 1.31 1.34 1.97 H HCO3/H2CO3 Ratio 17:1 20:1 13:1 ABG pH 7.35 7.40 7.24 L ABG pCO2 43.5 44.5 65.5 H ABG pO2 61.1 L 56.8 L 63.0 L ABG HCO3 23.4 26.8 H 27.1 H ABG O2 Saturation 90.2 L 89.4 L 87.4 L ABG Base Excess -2.4 1.5 -2.2 FiO2 100% 100% 100% Sodium Potassium Chloride Carbon Dioxide Anion Gap BUN Creatinine Est GFR ( Amer) Est GFR (Non-Af Amer) Glucose Calcium Triglycerides 10/12/17 20:45 WBC RBC Hgb Hct MCV MCH MCHC RDW Plt Count Carbonic Acid 1.39 H HCO3/H2CO3 Ratio 18:1 ABG pH 7.37 ABG pCO2 46.1 H ABG pO2 55.3 L ABG HCO3 26.2 H ABG O2 Saturation 87.8 L ABG Base Excess 0.4 FiO2 100 Sodium Potassium Chloride Carbon Dioxide Anion Gap BUN Creatinine Est GFR ( Amer) Est GFR (Non-Af Amer) Glucose Calcium Triglycerides 10/12/17 06:37 NT-Pro-B Natriuret Pep 137 Impressions: Chest CT 10/10/17 19:53 IMPRESSION: Right eighth, ninth, 10th, and 11th rib fractures. Prominent left upper lobe bullous emphysema. Cystic spaces in the left upper thorax are favored to represent bulla over pneumothorax given lack of left-sided rib fractures. Bilateral lower lobe consolidation, favored to represent atelectasis over pneumonia given rib fractures. Bilateral adrenal nodules. These likely represent adrenal adenomas however may be confirmed with dedicated adrenal CT or MRI. Abdomen MRI 10/11/17 00:00 IMPRESSION: Bilateral adrenal adenomas Right lower posterior rib fractures. No right kidney or liver laceration Dense consolidation right lower lobe, patchy consolidation left base, atelectasis versus pneumonia Chest X-Ray 10/12/17 17:45 IMPRESSION: 1. Stable pulmonary exam. 2. Interval placement of endotracheal and enteric tubes without evidence of complication. Assessment & Plan - Diagnosis (1) Acute on chronic respiratory failure with hypoxemia Is this a current diagnosis for this admission?: Yes Plan: Labs- All tests 24 hr 10/12/17 10/12/17 10/12/17 10:40 16:19 18:50 ABG pH 7.35 7.40 7.24 L ABG pCO2 43.5 44.5 65.5 H ABG pO2 61.1 L 56.8 L 63.0 L ABG O2 Saturation 90.2 L 89.4 L 87.4 L FiO2 100% 100% 100% 10/12/17 20:45 ABG pH 7.37 ABG pCO2 46.1 H ABG pO2 55.3 L ABG O2 Saturation 87.8 L FiO2 100 (2) Fall Qualifiers: Encounter type: initial encounter Qualified Code(s): W19.XXXA - Unspecified fall, initial encounter Plan: 2 days ago (3) Fracture, ribs Qualifiers: Encounter type: initial encounter Rib fracture type: multiple ribs Fracture type: closed Laterality: right Qualified Code(s): S22.41XA - Multiple fractures of ribs, right side, initial encounter for closed fracture Is this a current diagnosis for this admission?: Yes - Time Total Critical Time (Minutes): 45 - Plan Summary Plan Summary: pcp plans transfer to tertiary [facility]
[2017-10-13] MEDS ORDERED: ATORVASTATIN CALCIUM 10 MG TABLET NG SCH (22:00)
== END 2017-10-12 22:40 | disposition short-term general hospital (02) | DRG 208 ==
LOC: ER 18:13 → EH 10-11 01:40 → 4N 10-11 11:49 → 3N 10-12 14:27 → ICU 10-12 17:19
PROVIDERS: ADMIT Surgery; ATTEND Surgery
PROC: 5A1935Z Respiratory Ventilation, Less than 24 Consecutive Hours (ICD-10-PCS; principal; 2017-10-12)
PROC: 0BH17EZ Insertion of Endotracheal Airway into Trachea, Via Natural or Artificial Opening (ICD-10-PCS; 2017-10-12)
DX: S22.41XA Multiple fractures of ribs, right side, initial encounter for closed fracture (principal); J96.01 Acute respiratory failure with hypoxia; J18.9 Pneumonia, unspecified organism; J98.11 Atelectasis; J43.9 Emphysema, unspecified; W00.0XXA Fall on same level due to ice and snow, initial encounter; Y92.481 Parking lot as the place of occurrence of the external cause; F17.210 Nicotine dependence, cigarettes, uncomplicated; E78.5 Hyperlipidemia, unspecified; I10 Essential (primary) hypertension; F32.9 Major depressive disorder, single episode, unspecified; M25.521 Pain in right elbow; Z88.8 Allergy status to other drugs, medicaments and biological substances; R09.02 Hypoxemia; Z78.1 Physical restraint status
CPT/HCPCS: 31500; 36415; 36600; 71045; 71260; 74181; 80048; 80053; 82803; 83880; 84478; 85025; 85027; 87040; 93005; 93010; 94002; 94660; 96374; 96375; 99285; J0330; J1170; J1885; J1940; J1956; J2060; J2270; J2543; J2704; J2920; J3490; J7030; J7620

== ENCOUNTER 2018-05-02 16:02 | Emergency (ER) | payer BC ==
--- NOTE | 2018-05-02 16:59 | ER Document Report ---
ED Medical Screen (RME) - General Chief Complaint: Weakness Stated Complaint: HIP PAIN, WEAKNESS Time Seen by Provider: 05/02/18 16:57 Mode of Arrival: Ambulatory Information source: Patient TRAVEL OUTSIDE OF THE [place] IN LAST 30 DAYS: No - HPI Patient complains to provider of: weak; stressed Onset: This morning - pt states he feels weak and stressed since earlier today. Denies CP - Related Data Allergies/Adverse Reactions: chlorpheniramine [From Actifed Cold-Allergy] Allergy (Verified 05/02/18 16:14) phenylephrine [From Actifed Cold-Allergy] Allergy (Verified 05/02/18 16:14) pseudoephedrine [From Actifed Cold-Allergy] Allergy (Verified 05/02/18 16:14) triprolidine [From Actifed Cold-Allergy] Allergy (Verified 05/02/18 16:14) Past Medical History - Past Medical History Cardiac Medical History: Reports: Hx Hypercholesterolemia, Hx Hypertension Pulmonary Medical History: Reports: Hx COPD Neurological Medical History: Denies: Hx Seizures Renal/ Medical History: Denies: Hx Peritoneal Dialysis Skin Medical History: Denies Hx Psoriasis Psychiatric Medical History: Reports: Hx Depression Traumatic Medical History: Denies: Hx Traumatic Brain Injury Past Surgical History: Reports: Other - Left orchiectomy in the remote past. - Immunizations History of Influenza Vaccine for 06/2017 - 11/2017 Season: Yes Influenza Administration Date for 06/2017 - 11/2017 Season: 06/23/17 Physical Exam - Vital signs Vitals: Temp Pulse Resp BP Pulse Ox 98.3 F 58 L 20 90/76 L 94 05/02/18 16:34 05/02/18 16:34 05/02/18 16:34 05/02/18 16:34 05/02/18 16:34 Course - Vital Signs Vital signs: Temp Pulse Resp BP Pulse Ox 98.3 F 58 L 20 90/76 L 94 05/02/18 16:34 05/02/18 16:34 05/02/18 16:34 05/02/18 16:34 05/02/18 16:34
[2018-05-02 18:00] LABS: ABSOLUTE BASOPHILS # (AUTO) 0.1 10^3/uL (0.0-0.2); ABSOLUTE EOSINOPHILS # (AUTO) 0.1 10^3/uL (0.0-0.6); ABSOLUTE LYMPHOCYTES (AUTO) 2.6 10^3/uL (0.5-4.7); ABSOLUTE MONOCYTES (AUTO) 1.6 10^3/uL (0.1-1.4); ABSOLUTE NEUT (AUTO) 12.8 10^3/uL (1.7-8.2); BASOPHILS % (AUTO) 0.6 % (0-2); EOSINOPHILS % (AUTO) 0.8 % (0-6); HEMATOCRIT 52.9 % (37.9-51.0); HEMOGLOBIN 18.3 g/dL (13.5-17.0); MEAN CORPUSCULAR HEMOGLOBIN 33.8 pg (27.0-33.4); MEAN CORPUSCULAR HGB CONC 34.6 g/dL (32.0-36.0); MEAN CORPUSCULAR VOLUME 98 fl (80-97); MONOCYTES % (AUTO) 9.2 % (3-13); PLATELET COUNT 268 10^3/uL (150-450); RED BLOOD COUNT 5.42 10^6/uL (4.35-5.55); RED CELL DISTRIBUTION WIDTH 13.2 % (11.5-14.0); SEGMENTED NEUTROPHILS % (AUTO) 74.4 % (42-78); TOTAL CELLS COUNTED % (AUTO) 100 %; WHITE BLOOD COUNT 17.2 10^3/uL (4.0-10.5)
[2018-05-02] MEDS ORDERED: DILTIAZEM HCL/D5W 125 MG/125 ML RTUINJ IV PRN (18:24)
[2018-05-02] MEDS ORDERED: DILTIAZEM HCL INJ 25 MG/5 ML VIAL IV ONE (18:24)
[2018-05-02 18:27] LABS: ALANINE AMINOTRANSFERASE 29 U/L (21-72); ALBUMIN 4.1 g/dL (3.5-5.0); ALKALINE PHOSPHATASE 97 U/L (38-126); ANION GAP 11 (5-19); ASPARTATE AMINO TRANSFERASE 25 U/L (17-59); BILIRUBIN,DIRECT 0.3 mg/dL (0.0-0.4); BILIRUBIN,TOTAL 0.8 mg/dL (0.2-1.3); BLOOD UREA NITROGEN 20 mg/dL (7-20); CARBON DIOXIDE 30 mmol/L (22-30); CHLORIDE 106 mmol/L (98-107); CREATINE KINASE 83 U/L (55-170); GLUCOSE 82 mg/dL (75-110); POTASSIUM 4.3 mmol/L (3.6-5.0); SODIUM 146.6 mmol/L (137-145); TOTAL PROTEIN 7.3 g/dL (6.3-8.2)
[2018-05-02] MEDS ORDERED: METOPROLOL TARTRATE PF/INJ 5 MG/5 ML SDV IV ONE (18:32)
[2018-05-02] MEDS ORDERED: METOPROLOL TARTRATE 25 MG TABLET PO ONE (18:33)
[2018-05-02 18:35] LABS: APPEARANCE,URINE SLIGHTLY-CLOUDY; BILIRUBIN,URINE SMALL (NEGATIVE); CALCIUM OXALATE CRYSTALS,URINE FEW /HPF; GLUCOSE, URINE NEGATIVE (NEGATIVE); KETONES,URINE TRACE mg/dL (NEGATIVE); LEUKOCYTE ESTERASE,URINE SMALL (NEGATIVE); NITRITE,URINE NEGATIVE (NEGATIVE); PROTEIN,URINE 100 mg/dL (NEGATIVE); URINE SPECIFIC GRAVITY 1.027
[2018-05-02 18:37] LABS: COLOR,URINE YELLOW
[2018-05-02 18:39] LABS: CREATINE KINASE MB 1.04 ng/mL (<4.55)
--- NOTE | 2018-05-02 18:40 | ER Document Report ---
ED General - General Chief Complaint: Weakness Stated Complaint: HIP PAIN, WEAKNESS Time Seen by Provider: 05/02/18 16:57 Mode of Arrival: Ambulatory Notes: Patient is a 53-year-old male with a past medical history of COPD and hypertension who presents with feeling generally weak and fatigued for the past 12 hours. The patient reports that he is concerned that he may have been exposed to cleaning agents as he has been helping to clean his brother's house. He denies any chest pain or shortness of breath but states that he has felt some "fluttering" in his chest. He denies any history of similar symptoms in the past. Nothing improves or worsens his symptoms. He denies any syncope, nausea or vomiting. He has not seen his general doctor regarding today's concerns. No drug or alcohol ingestion. No recent changes in medications. TRAVEL OUTSIDE OF THE [place] IN LAST 30 DAYS: No - Related Data Allergies/Adverse Reactions: chlorpheniramine [From Actifed Cold-Allergy] Allergy (Verified 05/02/18 16:14) phenylephrine [From Actifed Cold-Allergy] Allergy (Verified 05/02/18 16:14) pseudoephedrine [From Actifed Cold-Allergy] Allergy (Verified 05/02/18 16:14) triprolidine [From Actifed Cold-Allergy] Allergy (Verified 05/02/18 16:14) Past Medical History - General Information source: Patient - Social History Smoking Status: Current Every Day Smoker Frequency of alcohol use: None Drug Abuse: None Lives with: Family Family History: Reviewed & Not Pertinent Patient has suicidal ideation: No Patient has homicidal ideation: No - Past Medical History Cardiac Medical History: Reports: Hx Hypercholesterolemia, Hx Hypertension Pulmonary Medical History: Reports: Hx COPD Neurological Medical History: Denies: Hx Seizures Renal/ Medical History: Denies: Hx Peritoneal Dialysis Skin Medical History: Denies Hx Psoriasis Psychiatric Medical History: Reports: Hx Depression Traumatic Medical History: Denies: Hx Traumatic Brain Injury Past Surgical History: Reports: Hx Testicular Surgery - Orchiectomy, Other - Left orchiectomy in the remote past. Review of Systems - Review of Systems Notes: Constitutional: Negative for fever. HENT: Negative for sore throat. Eyes: Negative for visual changes. Cardiovascular: Negative for chest pain. Positive for palpitations Respiratory: Negative for shortness of breath. Gastrointestinal: Negative for abdominal pain, vomiting or diarrhea. Genitourinary: Negative for dysuria. Musculoskeletal: Negative for back pain. Skin: Negative for rash. Neurological: Negative for headaches, weakness or numbness. 10 point ROS negative except as marked above and in HPI. Physical Exam - Vital signs Vitals: Temp Pulse Resp BP Pulse Ox 98.3 F 58 L 20 90/76 L 94 05/02/18 16:34 05/02/18 16:34 05/02/18 16:34 05/02/18 16:34 05/02/18 16:34 Interpretation: Normal Notes: PHYSICAL EXAMINATION: GENERAL: Well-appearing, well-nourished and in no acute distress. HEAD: Atraumatic, normocephalic. EYES: Pupils equal round and reactive to light, extraocular movements intact, sclera anicteric, conjunctiva are normal. ENT: nares patent, oropharynx clear without exudates. Moist mucous membranes. NECK: Normal range of motion, supple without lymphadenopathy LUNGS: Breath sounds clear to auscultation bilaterally and equal. No wheezes rales or rhonchi. HEART: Irregular regular rate and rhythm without murmurs ABDOMEN: Soft, nontender, normoactive bowel sounds. No guarding, no rebound. No masses appreciated. EXTREMITIES: Normal range of motion, no pitting or edema. No cyanosis. NEUROLOGICAL: No focal neurological deficits. Moves all extremities spontaneously and on command. PSYCH: Normal mood, normal affect. SKIN: Warm, Dry, normal turgor, no rashes or lesions noted. Course - Re-evaluation Re-evalutation: 05/02/18 18:35 Patient presents with new onset A. fib with associated generalized fatigue but no other localizing symptoms. Patient denies any chest pain, shortness of breath, nausea, vomiting, and EKG is without ischemic changes. His blood pressure at time of my assessment is within normal limits at 138 on 68 a heart rate of 137. His chadsvasc score is 1 placing him in the moderate risk category. The patient does already take aspirin and I have encouraged him to continue taking this medication. His laboratories are noted to have a nonspecific leukocytosis which is not relevant to the patient's current clinical presentation as he has no infectious or inflammatory symptoms. Cardiac markers within acceptable limits. Patient received metoprolol IV 5 mg 3 with acceptable rate control and received oral metoprolol. He will be continued on oral metoprolol at home and his oral atenolol has been discontinued. The patient has been provided with cardiology follow-up and I have emphasized the importance of close follow-up with both cardiology and his primary care doctor. At this time will discharge with return precautions and follow-up recommendations. Verbal discharge instructions given a the bedside and opportunity for questions given. Medication warnings reviewed. Patient is in agreement with this plan and has verbalized understanding of return precautions and the need for primary care follow-up in the next 24-72 hours. - Vital Signs Vital signs: Temp Pulse Resp BP Pulse Ox 98.3 F 102 H 20 116/93 H 95 05/02/18 16:34 05/02/18 20:12 05/02/18 16:34 05/02/18 20:01 05/02/18 20:10 - Laboratory Result Diagrams: 05/02/18 17:28 05/02/18 17:28 Laboratory results interpreted by me: 05/02/18 05/02/18 05/02/18 17:28 17:28 17:28 WBC 17.2 H Hgb 18.3 H Hct 52.9 H MCV 98 H MCH 33.8 H Absolute Neutrophils 12.8 H Absolute Monocytes 1.6 H Sodium 146.6 H Urine Protein 100 H Urine Ketones TRACE H Urine Blood MODERATE H Urine Bilirubin SMALL H Urine Urobilinogen 2.0 H Ur Leukocyte Esterase SMALL H - EKG Interpretation by Me Additional EKG results interpreted by me: 05/02/18 18:37 Atrial fibrillation with rapid ventricular response. Rate 142. No ST elevations or depressions. Discharge - Discharge Clinical Impression: Atrial fibrillation with rapid ventricular response, New onset atrial fibrillation Fatigue Qualifiers: Fatigue type: unspecified Qualified Code(s): R53.83 - Other fatigue Condition: Stable Disposition: HOME, SELF-CARE Additional Instructions: You have been diagnosed with new onset atrial fibrillation. Continue to take the aspirin that you already take. Discontinue atenolol. Begin taking metoprolol 25 mg twice daily. You need to return to the emergency department immediately if you become lightheaded, pass out, develop chest pain, develop shortness of breath, nausea, vomiting, or have any other symptoms that are all concerning to you. Prescriptions: Metoprolol Tartrate 50 mg PO BID #60 tablet Referrals: JAVAD PEREZ MD [ACTIVE STAFF] - Follow up tomorrow
[2018-05-02 18:45] LABS: TROPONIN I < 0.012 ng/mL
[2018-05-02] MEDS ORDERED: METOPROLOL TARTRATE 50 MG TABLET PO ONE (19:11)
[2018-05-02] MEDS ORDERED: NORMAL SALINE 1000 ML 1,000 ML IV ONE (19:17)
[2018-05-02 20:12] VITALS: BP 116/93
--- NOTE | 2018-05-03 00:05 | EKG REPORT ---
SEVERITY:- ABNORMAL ECG - ATRIAL FIBRILLATION PROBABLE INFERIOR INFARCT, OLD PROLONGED QT INTERVAL : Confirmed by: Jennifer Vick MD 03-May-2018 00:05:17
== END 2018-05-02 20:36 | disposition home or self-care (01) ==
LOC: ER 16:02
DX: I48.91 Unspecified atrial fibrillation (principal); R53.83 Other fatigue; R53.1 Weakness; J44.9 Chronic obstructive pulmonary disease, unspecified; D72.829 Elevated white blood cell count, unspecified; I10 Essential (primary) hypertension; F17.200 Nicotine dependence, unspecified, uncomplicated; Z79.82 Long term (current) use of aspirin; Z88.8 Allergy status to other drugs, medicaments and biological substances; Z79.899 Other long term (current) drug therapy
CPT/HCPCS: 93005; 99285; 96374; 36415; 87086; 82553; 82550; 85025; 80053; 81001; 84484; 93010; J3490; J7030

== ENCOUNTER 2018-09-07 18:44 | Inpatient (IN) | payer BC ==
[2018-09-07] MEDS ORDERED: NORMAL SALINE 1000 ML 1,000 ML IV ONE ×2 (19:18→20:59)
--- NOTE | 2018-09-07 19:28 | ER Document Report ---
ED General - General Chief Complaint: Palpitations Stated Complaint: CHEST TIGHTNESS, HEARTRATE ISSUE, SOB Notes: Patient is a 53-year-old male who presents to the emergency department with a chief complaint of chest tightness, palpitations, and shortness of breath. He states his symptoms started this afternoon around 1600. Nothing makes his symptoms better, nothing aggravates his symptoms. He has a history of hypertension, COPD, and hyperlipidemia. In April he was diagnosed with early onset atrial fibrillation. He was placed on metoprolol for management of his hypertension and atrial fibrillation. TRAVEL OUTSIDE OF THE [place] IN LAST 30 DAYS: No - Related Data Allergies/Adverse Reactions: chlorpheniramine [From Actifed Cold-Allergy] Allergy (Verified 05/02/18 16:14) phenylephrine [From Actifed Cold-Allergy] Allergy (Verified 05/02/18 16:14) pseudoephedrine [From Actifed Cold-Allergy] Allergy (Verified 05/02/18 16:14) triprolidine [From Actifed Cold-Allergy] Allergy (Verified 05/02/18 16:14) Past Medical History - Social History Family History: Reviewed & Not Pertinent - Past Medical History Cardiac Medical History: Reports: Hx Hypercholesterolemia, Hx Hypertension Pulmonary Medical History: Reports: Hx COPD Neurological Medical History: Denies: Hx Seizures Renal/ Medical History: Denies: Hx Peritoneal Dialysis Skin Medical History: Denies Hx Psoriasis Psychiatric Medical History: Reports: Hx Depression Traumatic Medical History: Denies: Hx Traumatic Brain Injury Past Surgical History: Reports: Hx Testicular Surgery - Orchiectomy, Other - Left orchiectomy in the remote past. Physical Exam - Vital signs Vitals: Resp Pulse Ox 10 L 90 L 09/07/18 19:07 09/07/18 19:07 Course - Vital Signs Vital signs: Temp Pulse Resp BP Pulse Ox 98.5 F 22 H 91/68 L 92 09/07/18 19:10 09/07/18 19:15 09/07/18 19:15 09/07/18 19:15
[2018-09-07 19:32] LABS: ABSOLUTE BASOPHILS # (AUTO) 0.1 10^3/uL (0.0-0.2); ABSOLUTE EOSINOPHILS # (AUTO) 0.2 10^3/uL (0.0-0.6); ABSOLUTE LYMPHOCYTES (AUTO) 2.4 10^3/uL (0.5-4.7); ABSOLUTE MONOCYTES (AUTO) 1.6 10^3/uL (0.1-1.4); BASOPHILS % (AUTO) 0.9 % (0-2); EOSINOPHILS % (AUTO) 1.5 % (0-6); HEMATOCRIT 50.1 % (37.9-51.0); HEMOGLOBIN 17.4 g/dL (13.5-17.0); LYMPHOCYTES % (AUTO) 16.8 % (13-45); MEAN CORPUSCULAR HEMOGLOBIN 34.2 pg (27.0-33.4); MEAN CORPUSCULAR HGB CONC 34.6 g/dL (32.0-36.0); MEAN CORPUSCULAR VOLUME 99 fl (80-97); PLATELET COUNT 262 10^3/uL (150-450); RED BLOOD COUNT 5.07 10^6/uL (4.35-5.55); SEGMENTED NEUTROPHILS % (AUTO) 69.8 % (42-78); TOTAL CELLS COUNTED % (AUTO) 100 %; WHITE BLOOD COUNT 14.3 10^3/uL (4.0-10.5)
[2018-09-07] MEDS ORDERED: RINGERS SOLUTION,LACTATED 1,000 ML IV ONE (19:35)
--- NOTE | 2018-09-07 19:39 | ER Document Report ---
ED General - General Chief Complaint: Palpitations Stated Complaint: CHEST TIGHTNESS, HEARTRATE ISSUE, SOB Cannot obtain history due to: Unstable vital signs Notes: Patient is a 53-year-old male with a past medical history of atrial fibrillation , hypertension, COPD, presents with chest tightness, palpitations and lightheadedness. Patient states that the symptoms started while at work rather abruptly and have gotten worse since that time. States that he has taken his metoprolol as prescribed but has not seemed to improve his symptoms. Denies a history of similar symptoms in the past. He does describe the chest discomfort as a tightness or heaviness of the chest. Nothing improves or worsens her symptoms. No radiation of the pain. No associated nausea or diaphoresis but does state that he feels somewhat short of breath. He has not seen his general physician regarding today's concerns. No history of coronary artery disease, DVT or pulmonary embolus. TRAVEL OUTSIDE OF THE [place] IN LAST 30 DAYS: No - Related Data Allergies/Adverse Reactions: chlorpheniramine [From Actifed Cold-Allergy] Allergy (Verified 05/02/18 16:14) phenylephrine [From Actifed Cold-Allergy] Allergy (Verified 05/02/18 16:14) pseudoephedrine [From Actifed Cold-Allergy] Allergy (Verified 05/02/18 16:14) triprolidine [From Actifed Cold-Allergy] Allergy (Verified 05/02/18 16:14) Past Medical History - General Information source: Patient - Social History Smoking Status: Current Every Day Smoker Frequency of alcohol use: None Drug Abuse: None Lives with: Family Family History: Reviewed & Not Pertinent - Past Medical History Cardiac Medical History: Reports: Hx Hypercholesterolemia, Hx Hypertension Pulmonary Medical History: Reports: Hx COPD Neurological Medical History: Denies: Hx Seizures Renal/ Medical History: Denies: Hx Peritoneal Dialysis Skin Medical History: Denies Hx Psoriasis Psychiatric Medical History: Reports: Hx Depression Traumatic Medical History: Denies: Hx Traumatic Brain Injury Past Surgical History: Reports: Hx Testicular Surgery - Orchiectomy, Other - Left orchiectomy in the remote past. Review of Systems - Review of Systems Notes: Constitutional: Negative for fever. HENT: Negative for sore throat. Eyes: Negative for visual changes. Cardiovascular: Positive for chest discomfort and palpitations Respiratory: Positive for shortness of breath. Gastrointestinal: Negative for abdominal pain, vomiting or diarrhea. Genitourinary: Negative for dysuria. Musculoskeletal: Negative for back pain. Skin: Negative for rash. Neurological: Negative for headaches, weakness or numbness. 10 point ROS negative except as marked above and in HPI. Physical Exam - Vital signs Vitals: Resp Pulse Ox 10 L 90 L 09/07/18 19:07 09/07/18 19:07 Interpretation: Hypotensive, Tachycardic, Hypoxic, Tachypneic Notes: PHYSICAL EXAMINATION: GENERAL: Somewhat ill in appearance but in no acute distress HEAD: Atraumatic, normocephalic. EYES: Pupils equal round and reactive to light, extraocular movements intact, sclera anicteric, conjunctiva are normal. ENT: nares patent, oropharynx clear without exudates. Moderately dry mucous membranes. NECK: Normal range of motion, supple without lymphadenopathy LUNGS: Breath sounds clear to auscultation bilaterally and equal. No wheezes rales or rhonchi. HEART: Irregular regular tachycardia without murmurs ABDOMEN: Soft, nontender, normoactive bowel sounds. No guarding, no rebound. No masses appreciated. EXTREMITIES: Normal range of motion, no pitting or edema. No cyanosis. NEUROLOGICAL: No focal neurological deficits. Moves all extremities spontaneously and on command. PSYCH: Normal mood, normal affect. SKIN: Warm, Dry, normal turgor, no rashes or lesions noted. Course - Re-evaluation Re-evalutation: 09/07/18 19:36 I did assume care from the nurse practitioner due to the critical nature of this patient. I have been at the patient's bedside for the past 20 minutes performing a new assessment, perform bedside ultrasound and form a care plan with the patient and nursing staff. In summary this patient is presenting with chest tightness, hypotension, and A. fib with rapid ventricular response. The patient's pressures did come as low as 75 systolic. The patient's initial heart rates were in between the 130s and 150s. He has taken his metoprolol twice a day. Assessment the patient is awake, alert, mildly ill in appearance. A bedside echocardiogram is without any evidence of a pericardial effusion or tamponade. Stat portal chest x-ray without any evidence of a pneumothorax. Initial EKG does show A. fib with rapid ventricular response but no evidence of ischemic changes. Troponin assay is pending. D-dimer is also pending as PE could present in this manner given the patient's chest tightness, shortness of breath, increased hypoxia, hypotension and rapid tachycardia. Patient's rapid A. fib could also be accounting for the patient's hypotension although I will initially began with fluid resuscitation to see if this results in improvement of the patient's current hypertension for proceeding to rate control agents. Patient is critically ill, will continue to reassess at regular intervals. 09/07/18 19:53 The patient's blood pressure is improved dramatically after receiving the first liter of fluid. Ongoing fluid resuscitation. Patient does remain tachycardic but is improving in his clinical appearance. Will continue to reassess regularly. 09/07/18 20:19 Patient has continued to have normalization of his blood pressure currently 114/ 92. He does however remain quite tachycardic current rate 132-142. A diltiazem bolus 10 mg will be administered followed by initiation of an infusion. Awaiting d-dimer result. The remainder the laboratories otherwise unremarkable. 09/07/18 20:58 Patient's heart rate has currently the 110s-120 and his blood pressure remains within acceptable limits. I discussed this case with the hospitalist who has accepted the patient for admission. - Vital Signs Vital signs: Temp Pulse Resp BP Pulse Ox 97.9 F 102 H 17 133/84 H 93 09/08/18 00:30 09/08/18 00:54 09/08/18 00:54 09/08/18 00:30 09/08/18 00:54 - Laboratory Result Diagrams: 09/07/18 19:29 09/07/18 19:29 Laboratory results interpreted by me: 09/07/18 09/07/18 19:29 19:29 WBC 14.3 H Hgb 17.4 H MCV 99 H MCH 34.2 H Absolute Neutrophils 10.0 H Absolute Monocytes 1.6 H Sodium 146.9 H Potassium 5.6 H BUN 30 H Glucose 112 H Calcium 10.4 H - Diagnostic Test Radiology reviewed: Image reviewed, Reports reviewed Radiology results interpreted by me: 09/07/18 19:39 Chest x-ray: No acute infiltrate pneumothorax - EKG Interpretation by Me Additional EKG results interpreted by me: 09/07/18 19:39 Atrial fibrillation. Rate 159. No ST elevations or depressions. QTC is 489. Critical Care Note - Critical Care Note Total time excluding time spent on procedures (mins): 40 Comments: Critical care time spent obtaining history from patient or surrogate, discussions with consultants, development of treatment plan with patient or surrogate, evaluation of patient's response to treatment, examination of patient , ordering and performing treatments and interventions, ordering and review of laboratory studies, re-evaluation of patient's condition, ordering and review of radiographic studies and review of old charts Discharge - Discharge Clinical Impression: Atrial fibrillation with rapid ventricular response, Hypoxia Hypotension Qualifiers: Hypotension type: unspecified hypotension type Qualified Code(s): I95.9 - Hypotension, unspecified Condition: Fair Disposition: ADMITTED INPATIENT Admitting Provider: Hospitalist Unit Admitted: [facility]
--- NOTE | 2018-09-07 19:41 | ER Document Report ---
ED Medical Screen (RME) - General Chief Complaint: Palpitations Stated Complaint: CHEST TIGHTNESS, HEARTRATE ISSUE, SOB Notes: Patient is a 53-year-old male who presents to the emergency department with a chief complaint of chest tightness. He stated his symptoms started this afternoon. He denies any actual chest "pain." He also has complaints of palpitations. He has a history of hypertension, dyslipidemia, and COPD. He was diagnosed with early onset atrial fibrillation this April. He did take an metoprolol this afternoon. TRAVEL OUTSIDE OF THE [place] IN LAST 30 DAYS: No - Related Data Allergies/Adverse Reactions: chlorpheniramine [From Actifed Cold-Allergy] Allergy (Verified 05/02/18 16:14) phenylephrine [From Actifed Cold-Allergy] Allergy (Verified 05/02/18 16:14) pseudoephedrine [From Actifed Cold-Allergy] Allergy (Verified 05/02/18 16:14) triprolidine [From Actifed Cold-Allergy] Allergy (Verified 05/02/18 16:14) Past Medical History - General Information source: Patient - Past Medical History Cardiac Medical History: Reports: Hx Hypercholesterolemia, Hx Hypertension Pulmonary Medical History: Reports: Hx COPD Neurological Medical History: Denies: Hx Seizures Renal/ Medical History: Denies: Hx Peritoneal Dialysis Skin Medical History: Denies Hx Psoriasis Psychiatric Medical History: Reports: Hx Depression Traumatic Medical History: Denies: Hx Traumatic Brain Injury Past Surgical History: Reports: Hx Testicular Surgery - Orchiectomy, Other - Left orchiectomy in the remote past. - Immunizations History of Influenza Vaccine for 06/2017 - 11/2017 Season: Yes Influenza Administration Date for 06/2017 - 11/2017 Season: 06/23/17 Physical Exam - Vital signs Vitals: Resp Pulse Ox 10 L 90 L 09/07/18 19:07 09/07/18 19:07 - Cardiovascular Rhythm: Irregularly irregular Course - Vital Signs Vital signs: Temp Pulse Resp BP Pulse Ox 98.5 F 22 H 91/68 L 92 09/07/18 19:10 09/07/18 19:15 09/07/18 19:15 09/07/18 19:15 - Laboratory Result Diagrams: 09/07/18 19:29 09/07/18 19:29 Laboratory results interpreted by me: 09/07/18 19:29 WBC 14.3 H Hgb 17.4 H MCV 99 H MCH 34.2 H Absolute Neutrophils 10.0 H Absolute Monocytes 1.6 H
[2018-09-07 19:45] LABS: ALANINE AMINOTRANSFERASE 27 U/L (21-72); ALBUMIN 4.2 g/dL (3.5-5.0); ALKALINE PHOSPHATASE 115 U/L (38-126); ANION GAP 10 (5-19); ASPARTATE AMINO TRANSFERASE 30 U/L (17-59); BILIRUBIN,DIRECT 0.3 mg/dL (0.0-0.4); BILIRUBIN,TOTAL 0.7 mg/dL (0.2-1.3); BLOOD UREA NITROGEN 30 mg/dL (7-20); CALCIUM 10.4 mg/dL (8.4-10.2); CARBON DIOXIDE 30 mmol/L (22-30); CHLORIDE 107 mmol/L (98-107); GLUCOSE 112 mg/dL (75-110); POTASSIUM 5.6 mmol/L (3.6-5.0); SODIUM 146.9 mmol/L (137-145); TOTAL PROTEIN 7.2 g/dL (6.3-8.2)
--- NOTE | 2018-09-07 20:03 | RADIOLOGY REPORT (SQ) ---
EXAM DESCRIPTION: CHEST SINGLE VIEW COMPLETED DATE/TIME: 09/07/2018 7:31 pm REASON FOR STUDY: chest pain COMPARISON: Chest x-ray 10/12/2017. CT chest 10/10/2017. EXAM PARAMETERS: NUMBER OF VIEWS: One view. TECHNIQUE: 2 frontal radiographic views of the chest acquired. RADIATION DOSE: NA LIMITATIONS: None. FINDINGS: LUNGS AND PLEURA: Emphysematous changes are again noted. No consolidation, pleural effusi on or pneumothorax. MEDIASTINUM AND HILAR STRUCTURES: No masses. Contour normal. HEART AND VASCULAR STRUCTURES: Heart normal in size. Normal vasculature. BONES: Remote right-sided rib fractures. HARDWARE: None in the chest. IMPRESSION: Emphysema. Otherwise, no acute radiographic findings in the chest. TECHNICAL DOCUMENTATION: JOB ID: [id number] 2010 [employer]- All Rights Reserved Reading location - IP/workstation name: [email or web address]
[2018-09-07 20:06] LABS: VENOUS BLOOD BASE EXCESS -0.6 mmol/L; VENOUS BLOOD HCO3 24.8 mmol/L (20-32); VENOUS BLOOD PCO2 43.3 mmHg (35-63); VENOUS BLOOD PH 7.38 (7.30-7.42)
[2018-09-07] MEDS ORDERED: DILTIAZEM HCL INJ 25 MG/5 ML VIAL IV ONE (20:19)
[2018-09-07] MEDS ORDERED: DILTIAZEM HCL/D5W 125 MG/125 ML RTUINJ IV PRN ×2 (20:19→21:42)
[2018-09-07] MEDS ORDERED: DILTIAZEM HCL/D5W 125 MG/125 ML RTUINJ IV ONE (20:44)
[2018-09-07] MEDS ORDERED: ONDANSETRON HCL INJ/PF 4 MG/2 ML SDV IV PRN (21:33)
[2018-09-07] MEDS ORDERED: ONDANSETRON 4 MG TAB.RAPDIS PO PRN (21:33)
[2018-09-07] MEDS ORDERED: MAG HYDROX/AL HYDROX/SIMETH SUSP 30 ML UDCUP PO PRN (21:33)
[2018-09-07] MEDS ORDERED: MAGNESIUM HYDROXIDE SUSP 30 ML UDCUP PO PRN (21:33)
[2018-09-07] MEDS ORDERED: ACETAMINOPHEN 325 MG TABLET PO PRN (21:40)
[2018-09-07] MEDS ORDERED: ALBUTEROL SULFATE 0.083% NEB 2.5 MG/3 ML AMPUL NEB PRN (21:40)
[2018-09-07] MEDS ORDERED: ACETAMINOPHEN 650 MG SUPP.RECT PR PRN (21:40)
[2018-09-07] MEDS ORDERED: MORPHINE SULFATE 10 MG/ML INJ IV PRN ×3 (21:41)
--- NOTE | 2018-09-08 00:50 | EKG REPORT ---
SEVERITY:- ABNORMAL ECG - ATRIAL FIBRILLATION, V-RATE 115-217 PROBABLE INFERIOR INFARCT, OLD BORDERLINE PROLONGED QT INTERVAL : Confirmed by: Jennifer Vick MD 08-Sep-2018 00:50:10
[2018-09-08] MEDS: LEVALBUTEROL HCL NEB 1.25 MG/3 ML AMPUL NEB SCH ×3 (00:53→16:40)
[2018-09-08] MEDS: IPRATROPIUM BROMIDE 0.02% NEB 0.5 MG/2.5 ML AMPUL NEB SCH ×3 (00:53→16:40)
[2018-09-08] MEDS: ATORVASTATIN CALCIUM 10 MG TABLET PO SCH ×2 (01:28→21:35)
[2018-09-08] MEDS: FAMOTIDINE 20 MG TABLET PO SCH ×3 (01:28→21:35)
[2018-09-08] MEDS ORDERED: DILTIAZEM HCL 90 MG TABLET PO ONE (01:30)
[2018-09-08 02:03] LABS: HEMOGLOBIN 15.7 g/dL (13.5-17.0); MEAN CORPUSCULAR HEMOGLOBIN 33.3 pg (27.0-33.4); MEAN CORPUSCULAR HGB CONC 34.2 g/dL (32.0-36.0); MEAN CORPUSCULAR VOLUME 97 fl (80-97); PLATELET COUNT 221 10^3/uL (150-450); RED BLOOD COUNT 4.72 10^6/uL (4.35-5.55); RED CELL DISTRIBUTION WIDTH 12.9 % (11.5-14.0); WHITE BLOOD COUNT 13.1 10^3/uL (4.0-10.5)
[2018-09-08] MEDS ORDERED: DILTIAZEM HCL 90 MG TABLET ONE (02:18)
[2018-09-08 02:25] LABS: ANION GAP 8 (5-19); BLOOD UREA NITROGEN 24 mg/dL (7-20); CALCIUM 8.7 mg/dL (8.4-10.2); CARBON DIOXIDE 27 mmol/L (22-30); CHLORIDE 109 mmol/L (98-107); GLUCOSE 173 mg/dL (75-110); SODIUM 144.2 mmol/L (137-145)
[2018-09-08 02:35] LABS: POTASSIUM 3.9 mmol/L (3.6-5.0)
[2018-09-08 02:38] LABS: CREATINE KINASE MB 1.31 ng/mL (<4.55)
--- NOTE | 2018-09-08 02:38 | PDOC H&P ---
History of Present Illness Admission Date/PCP: 09/07/18 21:03 BRODIE MONTEIRO MD Patient complains of: Chest tightness with palpitations and dyspnea History of Present Illness: MOHSEN SAINZ is a 53 year old male who presented to the emergency room with a history of acute onset moderate chest tightness with moderate to severe palpitations (rapid heart rate) and moderate dyspnea beginning while he was at work ([employer]) just prior to his emergency room presentation. He denied any accompanying symptoms and denied identification of any aggravating or ameliorating factors for his chest tightness, palpitations or dyspnea. He admits at least one prior similar episode for which he was given a "metoprolol to slow down my heart", which he states he had taken as directed earlier in the day prior to going to work. In the emergency room he was found to be hypoxic, hypotensive and tachycardic with atrial fibrillation and a rapid ventricular response. His hypotension was resolved in part with control of his atrial fibrillation rate and vascular volume replacement. His hypoxia also improved dramatically with control of his heart rate. Patient was admitted to inpatient status for further evaluation and treatment of his multiple symptoms. Past Medical History Cardiac Medical History: Reports: Atrial Fibrillation - ? He admits a prior episode of rapid heartbeat treated with metoprolol., Hyperlipidema - Mildly elevated cholesterol significantly elevated triglycerides., Hypertension Pulmonary Medical History: Reports: Chronic Obstructive Pulmonary Disease (COPD) , Pneumonia - Posttraumatic pneumonia after multiple rib fractures. Denies: Asthma EENT Medical History: Reports: None Neurological Medical History: Denies: Hemorrhagic CVA, Ischemic CVA, Seizures Endocrine Medical History: Denies: Diabetes Mellitus Type 1, Diabetes Mellitus Type 2, Hyperthyroidism, Hypothyroidism Renal/ Medical History: Denies: Chronic Kidney Disease, Nephrolithiasis Malignancy Medical History: Reports: None GI Medical History: Denies: Crohn's Disease, Hepatitis, Ulcerative Colitis Musculoskeltal Medical History: Denies: Arthritis, Gout Skin Medical History: Denies: Eczema, Psoriasis Psychiatric Medical History: Reports: Depression, Tobacco Dependency Denies: Alcohol Dependency, Substance Abuse Traumatic Medical History: Reports: None Hematology: Denies: Anemia, Bleeding Tendencies Infectious Medical History: Reports: None Past Surgical History Past Surgical History: Reports: Other - Left orchiectomy in the remote past. Social History Information Source: Patient Lives with: Alone Smoking Status: Former Smoker - Patient currently chews tobacco and preference to smoking. Frequency of Alcohol Use: Heavy - Patient drinks 25 ounces of beer daily and has done so for the last year or so. He admits much heavier use of alcohol in the past as much as 25 ounces of hard liquor per day on his days off work. He decided to reduce his drinking after he was hospitalized with a posttraumatic pneumonia when he sustained rib fractures more than a year ago. Hx Recreational Drug Use: No Drugs: None Hx Prescription Drug Abuse: No - Advance Directive Resuscitation Status: Full Code Surrogate healthcare decision maker:: Jose Sainz Family History Family History: DM, Hypertension Parental Family History Reviewed: Yes Children Family History Reviewed: No Sibling(s) Family History Reviewed.: Yes Medication/Allergy Home Medications: Amlodipine Besylate [Norvasc 5 mg Tablet] 5 mg PO DAILY 10/11/17 Aspirin [Aspirin EC] 81 mg PO DAILY 10/11/17 Atenolol [Tenormin 50 mg Tablet] 50 mg PO DAILY 10/11/17 Atorvastatin Calcium [Lipitor 10 mg Tablet] 10 mg PO QHS 10/11/17 Budesonide/Formoterol Fumarate [Symbicort Hfa 80-4.5 Mcg Inhaler 6.9 gm] 2 puff IH Q12 10/11/17 Fluoxetine HCl [Prozac] 20 mg PO Q12 10/11/17 Multivitamin [Tab-A-Piotr (Multiple Vitamin) Tablet] 1 tab PO DAILY 10/11/17 Metoprolol Tartrate 50 mg PO BID #60 tablet 05/02/18 Allergies/Adverse Reactions: chlorpheniramine [From Actifed Cold-Allergy] Allergy (Verified 05/02/18 16:14) phenylephrine [From Actifed Cold-Allergy] Allergy (Verified 05/02/18 16:14) pseudoephedrine [From Actifed Cold-Allergy] Allergy (Verified 05/02/18 16:14) triprolidine [From Actifed Cold-Allergy] Allergy (Verified 05/02/18 16:14) Review of Systems Constitutional: ABSENT: chills, fever(s) Eyes: ABSENT: visual disturbances, other - Ocular pain Ears: ABSENT: hearing changes, other - Ear pain Nose, Mouth, and Throat: ABSENT: mouth pain, sore throat Cardiovascular: PRESENT: as per HPI, chest pain - Tightness and pressure, dyspnea on exertion, palpitations. ABSENT: edema, orthropnea Respiratory: PRESENT: dyspnea. ABSENT: cough Gastrointestinal: ABSENT: abdominal pain, constipation, diarrhea, heartburn, nausea, vomiting Genitourinary: ABSENT: dysuria, hematuria Musculoskeletal: ABSENT: back pain, joint swelling Integumentary: ABSENT: pruritus, rash Neurological: ABSENT: confusion, convulsions, memory loss, syncope Psychiatric: PRESENT: depression. ABSENT: anxiety Endocrine: ABSENT: cold intolerance, heat intolerance Hematologic/Lymphatic: ABSENT: easy bleeding, easy bruising Physical Exam Vital Signs: Temp Pulse Resp BP Pulse Ox 98.5 F 17 125/93 H 93 09/07/18 19:10 09/07/18 19:56 09/07/18 19:56 09/07/18 19:56 General appearance: PRESENT: no acute distress, cooperative, obese Head exam: PRESENT: atraumatic, normocephalic Eye exam: PRESENT: EOMI. ABSENT: nystagmus, scleral icterus Ear exam: PRESENT: normal external ear exam. ABSENT: bleeding Mouth exam: PRESENT: dry mucosa, neck supple Neck exam: ABSENT: JVD, thyromegaly, tracheal deviation Respiratory exam: PRESENT: clear to auscultation celia, symmetrical, unlabored Cardiovascular exam: PRESENT: irregular rhythm - Irregularly irregular rate and rhythm, tachycardia - 140s. ABSENT: clicks, diastolic murmur, gallop, rubs, systolic murmur Pulses: PRESENT: normal radial pulses, normal dorsalis pedis pul Vascular exam: PRESENT: normal capillary refill. ABSENT: pallor GI/Abdominal exam: PRESENT: normal bowel sounds, soft Rectal exam: PRESENT: deferred Extremities exam: ABSENT: joint swelling, pedal edema Musculoskeletal exam: PRESENT: full ROM, normal inspection Neurological exam: PRESENT: alert, oriented to person, oriented to place, oriented to time, oriented to situation, CN II-XII grossly intact. ABSENT: motor sensory deficit Psychiatric exam: PRESENT: appropriate affect, normal mood Skin exam: PRESENT: dry, intact, warm. ABSENT: jaundice, rash, urticaria Results Impressions: Chest X-Ray 09/07/18 19:17 IMPRESSION: Emphysema. Otherwise, no acute radiographic findings in the chest. Assessment & Plan - Diagnosis (1) Hypotension Qualifiers: Hypotension type: unspecified hypotension type Qualified Code(s): I95.9 - Hypotension, unspecified Is this a current diagnosis for this admission?: Yes Plan: Patient will be continued on IV fluids as required for volume replacement and careful treatment of his atrial fibrillation with rapid ventricular response to not provoke further episodes of hypotension. Number followed with daily lab evaluations of his metabolic profile and magnesium levels. (2) Acute on chronic respiratory failure with hypoxemia Is this a current diagnosis for this admission?: Yes Plan: Patient will be treated with supplemental oxygen as needed. Considering his history of chronic obstructive pulmonary disease oxygen therapy should be strictly limited to avoid complications of excess oxygenation. (3) Atrial fibrillation with rapid ventricular response Is this a current diagnosis for this admission?: Yes Plan: Patient is treated with a diltiazem drip after a bolus dose in the emergency room. He will be converted to oral diltiazem overnight and will be observed for any recurrence of his rapid ventricular response during the first 12-24 hours of oral therapy. Continuous cardiac monitoring will be used to evaluate efficacy of therapy. (4) Tobacco dependence due to chewing tobacco Is this a current diagnosis for this admission?: Yes Plan: Patient is advised to discontinue using chewing tobacco and an offer for a nicotine patch is made and this will be available should he choose to avail himself of this alternative means of avoiding nicotine withdrawal. (5) Obesity (BMI 30-39.9) Is this a current diagnosis for this admission?: Yes Plan: Patient will be seen by dietitian who will be able to make initial recommendations and encourage follow-up with his primary provider to make lifestyle changes and lose weight for better heart and overall health. - Time Time Spent: 30 to 50 Minutes Critical Time spent with patient: Less than 15 minutes Medications reviewed and adjusted accordingly: Yes Anticipated discharge: Home Within: within 72 hours - Inpatient Certification Based on my medical assessment, after consideration of the patient's comorbidities, presenting symptoms, or acuity I expect that the services needed warrant INPATIENT care.: Yes I certify that my determination is in accordance with my understanding of Medicare's requirements for reasonable and necessary INPATIENT services [42 CFR 412.3e].: Yes Medical Necessity: Need Close Monitoring Due to Risk of Patient Decompensation, Need For Continuous Telemetry Monitoring, Risk of Complication if Not Cared For in Hospital
[2018-09-08 02:42] LABS: TROPONIN I < 0.012 ng/mL
[2018-09-08 02:49] LABS: FREE T3 4.45 pg/mL (2.77-5.27); FREE T4 (FREE THYROXINE) 1.45 ng/dL (0.78-2.19)
[2018-09-08 03:03] LABS: THYROID STIMULATING HORMONE 0.89 uIU/mL (0.47-4.68)
[2018-09-08] MEDS: BUDESONIDE NEB 0.5 MG/2 ML AMPUL NEB SCH ×2 (08:30→21:29)
[2018-09-08 08:49] LABS: CREATINE KINASE MB 1.55 ng/mL (<4.55)
[2018-09-08 08:50] LABS: TROPONIN I < 0.012 ng/mL
[2018-09-08] MEDS: MULTIVITAMIN TABLET PO SCH (09:02)
[2018-09-08] MEDS: DILTIAZEM HCL 180 MG CAPSULE.CR PO SCH (09:02)
[2018-09-08] MEDS: ASPIRIN 81 MG TABLET, ENT COATED PO SCH (09:02)
[2018-09-08] MEDS: ENOXAPARIN SODIUM INJ 40 MG/0.4 ML DISP.SYRIN SUBCUT SCH (09:02)
[2018-09-08] MEDS: DOCUSATE SODIUM 100 MG CAPSULE PO SCH ×2 (09:03→17:01)
--- NOTE | 2018-09-08 11:56 | PDOC PROGRESS REPORT ---
Subjective Progress Note for:: 09/08/18 Subjective:: She feels a lot better. He is on Cardizem drip. His rate is controlled but still in A. fib. Reason For Visit: HYPOTENSION Physical Exam Vital Signs: Temp Pulse Resp BP Pulse Ox 97.3 F 87 17 124/81 95 09/08/18 07:27 09/08/18 08:31 09/08/18 08:31 09/08/18 07:27 09/08/18 08:31 Intake & Output 09/07/18 09/08/18 09/09/18 06:59 06:59 06:59 Intake Total 1380 Output Total 350 Balance 1030 Weight 230 lb 9.656 oz General appearance: PRESENT: no acute distress, cooperative Head exam: PRESENT: atraumatic, normocephalic Eye exam: PRESENT: EOMI. ABSENT: conjunctival injection Ear exam: ABSENT: bleeding, drainage Mouth exam: PRESENT: moist, neck supple Neck exam: ABSENT: meningismus, tenderness, tracheostomy Respiratory exam: PRESENT: clear to auscultation celia. ABSENT: accessory muscle use Cardiovascular exam: PRESENT: irregular rhythm. ABSENT: diastolic murmur, systolic murmur Pulses: PRESENT: normal carotid pulses GI/Abdominal exam: PRESENT: normal bowel sounds. ABSENT: ascites Rectal exam: PRESENT: deferred Neurological exam: PRESENT: alert, awake, oriented to person, oriented to place , oriented to time, oriented to situation Psychiatric exam: ABSENT: agitated, anxious Results Laboratory Results: 09/08/18 01:48 09/08/18 01:48 09/08/18 09/08/18 09/08/18 01:48 01:48 01:48 WBC 13.1 H RBC 4.72 Hgb 15.7 Hct 46.0 MCV 97 MCH 33.3 MCHC 34.2 RDW 12.9 Plt Count 221 Sodium 144.2 Potassium 3.9 D Chloride 109 H Carbon Dioxide 27 Anion Gap 8 BUN 24 H Creatinine 0.82 Est GFR ( Amer) > 60 Est GFR (Non-Af Amer) > 60 Glucose 173 H Calcium 8.7 Magnesium 2.1 TSH 0.89 Free T4 1.45 Free T3 pg/mL 4.45 09/08/18 09/08/18 09/08/18 01:48 01:48 08:00 Creatine Kinase 73 62 CK-MB (CK-2) 1.31 Troponin I < 0.012 09/08/18 08:00 Creatine Kinase CK-MB (CK-2) 1.55 Troponin I < 0.012 Impressions: Chest X-Ray 09/07/18 19:17 IMPRESSION: Emphysema. Otherwise, no acute radiographic findings in the chest. Assessment & Plan - Diagnosis (1) Atrial fibrillation with rapid ventricular response Is this a current diagnosis for this admission?: Yes Plan: Continue Cardizem drip. TSH normal. Check echocardiogram. Consult cardiology. (2) Hypotension Qualifiers: Hypotension type: unspecified hypotension type Qualified Code(s): I95.9 - Hypotension, unspecified Is this a current diagnosis for this admission?: Yes Plan: Resolved. Likely was due to his A. fib and rapid rate. (3) Obesity (BMI 30-39.9) Is this a current diagnosis for this admission?: Yes Plan: Recommend lifestyle modifications. (4) Tobacco dependence due to chewing tobacco Is this a current diagnosis for this admission?: Yes Plan: Counseled
--- NOTE | 2018-09-08 13:26 | EKG REPORT ---
SEVERITY:- ABNORMAL ECG - ATRIAL FIBRILLATION LEFT AXIS DEVIATION BORDERLINE T ABNORMALITIES, INFERIOR LEADS : Confirmed by: Laci Bean MD 08-Sep-2018 13:25:08
--- NOTE | 2018-09-08 21:44 | PDOC PROGRESS REPORT ---
Subjective Progress Note for:: 09/08/18 Subjective:: Patient was admitted with atrial fibrillation with rapid ventricular response. Patient has a history of paroxysmal atrial fibrillation. Patient has been seen in my office and is awaiting further evaluation for sleep apnea. This is because of history of paroxysmal atrial fibrillation. Patient claims that he had chest pain when his heart was beating rapid but now it is resolved. Patient did get Cardizem drip and subsequently p.o. Cardizem. Currently he is in sinus rhythm. Reason For Visit: HYPOTENSION Physical Exam Vital Signs: Temp Pulse Resp BP Pulse Ox 97.5 F 78 20 129/90 H 98 09/08/18 19:15 09/08/18 20:07 09/08/18 19:15 09/08/18 19:15 09/08/18 19:15 Intake & Output 09/07/18 09/08/18 09/09/18 06:59 06:59 06:59 Intake Total 1380 1034 Output Total 350 Balance 1030 1034 Weight 104.6 kg Exam: GENERAL: well-nourished and in no acute distress. Alert and oriented x3 HEAD: Atraumatic, normocephalic. EYES: DUSTIN, sclera anicteric, conjunctiva are normal. ENT: Moist mucous membranes. No oral ulcerations or bleeding gums noted. No obvious ear, nose or throat abnormalities noted. NECK: supple without lymphadenopathy. Trachea is central. No cervical or axillary lymphadenopathy noted. Carotids are 2+, JVD WNL LUNGS: Breath sounds clear bilaterally. No wheezes rales or rhonchi noted. No significant dullness noted on percussion. CHEST: Palpation of the chest wall shows no significant chest wall tenderness. HEART: [place] [employer], No PSH, 1/6 CARLA aortic area, 1/6 tolbert systolic murmur mitral area, no rubs, no gallops. ABDOMEN: Soft, no significant tenderness appreciated, normoactive bowel sounds. No guarding, no rebound. No rigidity noted . No masses appreciated. EXTREMITIES: Pedal pulses are 1-2+, no calf tenderness noted. No clubbing or cyanosis. negative pedal edema noted NEUROLOGICAL: Focused neurological exam showed no significant neurologic deficit. Normal speech, no focal weakness appreciated. PSYCH: Normal mood, normal affect. Judgment and insight within normal limits. SKIN: No significant ecchymosis, skin is noted to be warm. MUSCULOSKELETAL EXAM: No significant acute joint swelling noted. Results Laboratory Results: 09/08/18 01:48 09/08/18 01:48 09/08/18 09/08/18 09/08/18 01:48 01:48 01:48 WBC 13.1 H RBC 4.72 Hgb 15.7 Hct 46.0 MCV 97 MCH 33.3 MCHC 34.2 RDW 12.9 Plt Count 221 Sodium 144.2 Potassium 3.9 D Chloride 109 H Carbon Dioxide 27 Anion Gap 8 BUN 24 H Creatinine 0.82 Est GFR ( Amer) > 60 Est GFR (Non-Af Amer) > 60 Glucose 173 H Calcium 8.7 Magnesium 2.1 TSH 0.89 Free T4 1.45 Free T3 pg/mL 4.45 09/08/18 09/08/18 09/08/18 01:48 01:48 08:00 Creatine Kinase 73 62 CK-MB (CK-2) 1.31 Troponin I < 0.012 09/08/18 08:00 Creatine Kinase CK-MB (CK-2) 1.55 Troponin I < 0.012 EKG Comments: Atrial fibrillation, no acute ST-T wave changes are noted. Impressions: Chest X-Ray 09/07/18 19:17 IMPRESSION: Emphysema. Otherwise, no acute radiographic findings in the chest. Assessment & Plan - Diagnosis (1) Atrial fibrillation with rapid ventricular response Is this a current diagnosis for this admission?: Yes (2) Hypertension Qualifiers: Hypertension type: essential hypertension Qualified Code(s): I10 - Essential (primary) hypertension Is this a current diagnosis for this admission?: Yes - Notes Notes: Paroxysmal atrial fibrillation: Patient currently in sinus rhythm but has recurrent spell. At this point will place him on Multaq 400 mg p.o. twice daily. Continue Cardizem or beta-peggy. Recommend chronic anticoagulation for at least a month. Hypertension: Currently blood pressure well controlled. History of tobacco abuse: Continue with Wellbutrin therapy. Sleep disorder: Patient to be scheduled for sleep study. - Time Time with patient: Greater than 35 minutes - CODE STATUS was discussed, patient remains full code. Surrogate decision-maker unchanged. Multiple medical problems were addressed. More than 50% of the time spent coordinating care, discussing management plans with involved caregivers. Management plans discussed with involved personnels. Medical decision making was of moderate to high complexity, patient's has multiple comorbidities. Medications reviewed and adjusted accordingly: Yes
[2018-09-08] MEDS ORDERED: DRONEDARONE HYDROCHLORIDE 400 MG TABLET PO ONE (22:30)
[2018-09-09] MEDS: IPRATROPIUM BROMIDE 0.02% NEB 0.5 MG/2.5 ML AMPUL NEB SCH ×3 (01:25→18:02)
[2018-09-09] MEDS: LEVALBUTEROL HCL NEB 1.25 MG/3 ML AMPUL NEB SCH ×3 (01:25→18:02)
[2018-09-09 06:27] LABS: HEMATOCRIT 45.7 % (37.9-51.0); HEMOGLOBIN 15.5 g/dL (13.5-17.0); MEAN CORPUSCULAR HEMOGLOBIN 33.2 pg (27.0-33.4); MEAN CORPUSCULAR VOLUME 98 fl (80-97); PLATELET COUNT 212 10^3/uL (150-450); RED BLOOD COUNT 4.68 10^6/uL (4.35-5.55); WHITE BLOOD COUNT 12.2 10^3/uL (4.0-10.5)
[2018-09-09 06:48] LABS: ANION GAP 6 (5-19); BLOOD UREA NITROGEN 17 mg/dL (7-20); CALCIUM 8.9 mg/dL (8.4-10.2); CARBON DIOXIDE 27 mmol/L (22-30); CHLORIDE 108 mmol/L (98-107); GLUCOSE 113 mg/dL (75-110); POTASSIUM 3.9 mmol/L (3.6-5.0); SODIUM 141.1 mmol/L (137-145)
[2018-09-09] MEDS: BUDESONIDE NEB 0.5 MG/2 ML AMPUL NEB SCH ×2 (08:03→20:55)
[2018-09-09] MEDS: FAMOTIDINE 20 MG TABLET PO SCH ×2 (09:13→21:11)
[2018-09-09] MEDS: ENOXAPARIN SODIUM INJ 40 MG/0.4 ML DISP.SYRIN SUBCUT SCH (09:13)
[2018-09-09] MEDS: MULTIVITAMIN TABLET PO SCH (09:13)
[2018-09-09] MEDS: ASPIRIN 81 MG TABLET, ENT COATED PO SCH (09:13)
[2018-09-09] MEDS: DILTIAZEM HCL 180 MG CAPSULE.CR PO SCH (09:13)
[2018-09-09] MEDS: DRONEDARONE HYDROCHLORIDE 400 MG TABLET PO SCH ×2 (09:13→21:11)
[2018-09-09] MEDS: DOCUSATE SODIUM 100 MG CAPSULE PO SCH ×2 (09:14→17:09)
[2018-09-09] MEDS ORDERED: DRONEDARONE HYDROCHLORIDE 400 MG TABLET PO SCH (10:00)
--- NOTE | 2018-09-09 12:54 | XCELERA REPORT ---
[address] [address] Transthoracic Echocardiogram Report Name: MOHSEN EDGE Age: 53 yrs Gender: Male : 1965 Patient Status: Inpatient Patient Location: [address] [place] [address] Study Date: 09/08/2018 02:34 PM Procedure: A complete two-dimensional transthoracic echocardiogram was performed (2D, M-mode, spectral and color flow Doppler). The study was technically adequate with some images being suboptimal in quality. Reason For Study: AF Ordering Physician: TYE HUITRON Performed By: Aniya Vila Interpretation Summary The left ventricular ejection fraction is normal. The left ventricle is grossly normal size. There is mild concentric left ventricular hypertrophy. Doppler measurements suggest pseudonormalized left ventricular relaxation, which is associated with grade II/IV or mild to moderate diastolic dysfunction Wall motion cannot be accurately commented on, but no definite regional wall motion abnormalities noted. The right ventricular systolic function is normal. The left atrium is mildly dilated. The right atrium is normal in size There is a trace amount of mitral regurgitation There is no mitral valve stenosis. No aortic regurgitation is present. There is no aortic valve stenosis There is no tricuspid stenosis. No tricuspid regurgitation. The aortic root is not well visualized but is probably normal size. The inferior vena cava appeared normal and decreased > 50% with respiration (RAP 5-10 mmHg) There is no pericardial effusion. MMode/2D Measurements & Calculations RVDd: 3.6 cm LVIDd: 6.1 cm FS: 20.9 % Ao root diam: 3.1 cm IVSd: 1.1 cm LVIDs: 4.8 cm EDV(Teich): 186.9 ml Ao root area: 7.7 cm2 LVPWd: 0.97 cm ESV(Teich): 109.0 ml EF(Teich): 41.7 % Doppler Measurements & Calculations MV E max damián: MV dec slope: Ao V2 max: LV V1 max P.0 cm/sec 95.1 cm/sec 2.5 mmHg MV A max damián: 569.4 cm/sec2 Ao max PG: LV V1 max: 68.7 cm/sec MV dec time: 0.17 sec 3.6 mmHg 78.9 cm/sec MV E/A: 1.4 Left Ventricle The left ventricle is grossly normal size. There is mild concentric left ventricular hypertrophy. The left ventricular ejection fraction is normal. Doppler measurements suggest pseudonormalized left ventricular relaxation, which is associated with grade II/IV or mild to moderate diastolic dysfunction. Wall motion cannot be accurately commented on, but no definite regional wall motion abnormalities noted. Right Ventricle The right ventricle is grossly normal size. There is normal right ventricular wall thickness. The right ventricular systolic function is normal. Atria The right atrium is normal in size. The left atrium is mildly dilated. Interarterial septum not well visualized and not well dopplered. Cannot comment on ASD/PFO presence. Mitral Valve The mitral valve is grossly normal. There is no mitral valve stenosis. There is a trace amount of mitral regurgitation. Aortic Valve The aortic valve is not well visualized secondary to technical limitations. There is no aortic valve stenosis. No aortic regurgitation is present. Tricuspid Valve The tricuspid valve is not well visualized, but is grossly normal. There is no tricuspid stenosis. No tricuspid regurgitation. Pulmonic Valve The pulmonic valve is not well visualized. Great Vessels The aortic root is not well visualized but is probably normal size. The inferior vena cava appeared normal and decreased > 50% with respiration (RAP 5-10 mmHg). Effusions There is no pericardial effusion. : TYE HUITRON > Simon Samuel
--- NOTE | 2018-09-09 15:30 | PDOC PROGRESS REPORT ---
Subjective Progress Note for:: 09/09/18 Subjective:: Mr. Sainz is a 53-year-old male with a history of paroxysmal A. fib who was admitted for atrial fibrillation with rapid ventricular response. Patient was started on Cardizem drip initially and he subsequently converted to sinus rhythm and was switched to PO cardizem. No acute event overnight. Patient says that he feels better. Denies chest pain or shortness of breath. No palpitations. Patient currently only on prophylactic Lovenox. Reason For Visit: HYPOTENSION Physical Exam Vital Signs: Temp Pulse Resp BP Pulse Ox 97.3 F 82 18 149/84 H 93 09/09/18 12:03 09/09/18 14:00 09/09/18 12:03 09/09/18 12:03 09/09/18 12:03 Intake & Output 09/08/18 09/09/18 09/10/18 06:59 06:59 06:59 Intake Total 1380 1256 Output Total 350 Balance 1030 1256 Weight 230 lb 9.656 oz 231 lb 7.766 oz General appearance: PRESENT: no acute distress, well-developed, well-nourished Head exam: PRESENT: atraumatic, normocephalic Eye exam: PRESENT: conjunctiva pink, EOMI, PERRLA. ABSENT: scleral icterus Ear exam: PRESENT: normal external ear exam Mouth exam: PRESENT: moist, tongue midline Neck exam: ABSENT: carotid bruit, JVD, lymphadenopathy, thyromegaly Respiratory exam: PRESENT: clear to auscultation celia. ABSENT: rales, rhonchi, wheezes Cardiovascular exam: PRESENT: RRR. ABSENT: diastolic murmur, rubs, systolic murmur Pulses: PRESENT: normal dorsalis pedis pul GI/Abdominal exam: PRESENT: normal bowel sounds, soft. ABSENT: distended, guarding, mass, organolmegaly, rebound, tenderness Rectal exam: PRESENT: deferred Neurological exam: PRESENT: alert, awake, oriented to person, oriented to place, oriented to time, oriented to situation, CN II-XII grossly intact. ABSENT: motor sensory deficit Results Laboratory Results: 09/09/18 06:16 09/09/18 06:16 09/09/18 09/09/18 06:16 06:16 WBC 12.2 H RBC 4.68 Hgb 15.5 Hct 45.7 MCV 98 H MCH 33.2 MCHC 34.0 RDW 13.0 Plt Count 212 Sodium 141.1 Potassium 3.9 Chloride 108 H Carbon Dioxide 27 Anion Gap 6 BUN 17 Creatinine 0.83 Est GFR ( Amer) > 60 Est GFR (Non-Af Amer) > 60 Glucose 113 H Calcium 8.9 Magnesium 2.2 09/08/18 09/08/18 09/08/18 01:48 01:48 08:00 Creatine Kinase 73 62 CK-MB (CK-2) 1.31 Troponin I < 0.012 09/08/18 08:00 Creatine Kinase CK-MB (CK-2) 1.55 Troponin I < 0.012 Impressions: Chest X-Ray 09/07/18 19:17 IMPRESSION: Emphysema. Otherwise, no acute radiographic findings in the chest. Assessment & Plan - Diagnosis (1) Atrial fibrillation with rapid ventricular response Is this a current diagnosis for this admission?: Yes Plan: Currently in sinus rhythm with a heart rate of 80. Patient has been switched to oral Cardizem. Chads vas score of 1. Cardiology does recommend anticoagulation for at least a month. Discussed benefits and risk of. Will discontinue prophylactic Lovenox and will start patient on Eliquis today. - Time Time Spent with patient: 15-24 minutes
[2018-09-09] MEDS: APIXABAN 5 MG TABLET PO SCH (17:12)
[2018-09-09] MEDS: ATORVASTATIN CALCIUM 10 MG TABLET PO SCH (21:11)
--- NOTE | 2018-09-09 23:33 | PDOC PROGRESS REPORT ---
Subjective Progress Note for:: 09/09/18 Subjective:: Patient is maintaining sinus rhythm. He was placed on antiarrhythmic therapy to maintain sinus rhythm. He is also being anti-coagulated. Patient was admitted with atrial fibrillation with rapid ventricular response. Patient has a history of paroxysmal atrial fibrillation. Patient has been seen in my office and is awaiting further evaluation for sleep apnea. This is because of history of paroxysmal atrial fibrillation. Patient claims that he had chest pain when his heart was beating rapid but now it is resolved. Patient did get Cardizem drip and subsequently p.o. Cardizem. Currently he is in sinus rhythm. Reason For Visit: HYPOTENSION Physical Exam Vital Signs: Temp Pulse Resp BP Pulse Ox 97.6 F 89 20 129/75 H 92 09/09/18 19:24 09/09/18 19:58 09/09/18 19:24 09/09/18 19:24 09/09/18 19:24 Intake & Output 09/08/18 09/09/18 09/10/18 06:59 06:59 06:59 Intake Total 1380 1256 888 Output Total 350 Balance 1030 1256 888 Weight 104.6 kg 105 kg Exam: GEN: NAD, patient alert oriented x3. Appearance and grooming WNL HEENT : Eyes: DUSTIN, Ears: No significant abnormalities, Nose: No significant abnormalities. normocephalic atraumatic. Flat midface (-), Receding chin (-) ORAL : Mallampati class IV, narrow arched palate (-) Tonsils: Not enlarged. NECK: no thyromegaly, no masses, trachea is central, JVD is not elevated, carotids 2+ with bruit (-) RESP: lungs clear, no rales, wheezes or rhonchi, nonlabored, accessory muscles of respiration use (-). CV: NL S1 and S2. No significant murmurs noted, no gallop, no extra sounds, no clicks, no rub noted. GI: abd NT to palpation, no masses, bowel sounds present, no guarding or rigidity noted. EXT: no clubbing, (-) cyanosis, edema (-), perpheral pulses diminished (no) MUSC/SKEL: no acute joint swelling noted. Muscle strength is generally intact. NEURO: no significant focal neurological deficits are note, sensation grossly intact, AO x 3 PSYCH: NL mood and affect. judgment and insight noted to be intact. SKIN: (-) rash, (-)Signs of pruritus, (-) other significant abnormality Results Laboratory Results: 09/09/18 06:16 09/09/18 06:16 09/09/18 09/09/18 06:16 06:16 WBC 12.2 H RBC 4.68 Hgb 15.5 Hct 45.7 MCV 98 H MCH 33.2 MCHC 34.0 RDW 13.0 Plt Count 212 Sodium 141.1 Potassium 3.9 Chloride 108 H Carbon Dioxide 27 Anion Gap 6 BUN 17 Creatinine 0.83 Est GFR ( Amer) > 60 Est GFR (Non-Af Amer) > 60 Glucose 113 H Calcium 8.9 Magnesium 2.2 09/08/18 09/08/18 09/08/18 01:48 01:48 08:00 Creatine Kinase 73 62 CK-MB (CK-2) 1.31 Troponin I < 0.012 09/08/18 08:00 Creatine Kinase CK-MB (CK-2) 1.55 Troponin I < 0.012 Impressions: Chest X-Ray 09/07/18 19:17 IMPRESSION: Emphysema. Otherwise, no acute radiographic findings in the chest. Assessment & Plan - Diagnosis (1) Atrial fibrillation with rapid ventricular response Is this a current diagnosis for this admission?: Yes (2) Hypertension Qualifiers: Hypertension type: essential hypertension Qualified Code(s): I10 - Essential (primary) hypertension Is this a current diagnosis for this admission?: Yes - Notes Notes: Patient remains stable and is maintaining sinus rhythm. Blood-pressure is well controlled. Continue with current management plans. Patient will benefit from close cardiology follow-up on discharge. Recommend chronic anticoagulation for at least a month if not longer. Will also recommend antiarrhythmic therapy for at least a month. - Time Time with patient: Greater than 35 minutes Medications reviewed and adjusted accordingly: Yes
[2018-09-10] MEDS: LEVALBUTEROL HCL NEB 1.25 MG/3 ML AMPUL NEB SCH ×2 (00:58→09:50)
[2018-09-10] MEDS: IPRATROPIUM BROMIDE 0.02% NEB 0.5 MG/2.5 ML AMPUL NEB SCH ×2 (00:58→09:50)
[2018-09-10 07:13] LABS: HEMATOCRIT 50.5 % (37.9-51.0); HEMOGLOBIN 17.2 g/dL (13.5-17.0); MEAN CORPUSCULAR HEMOGLOBIN 33.5 pg (27.0-33.4); MEAN CORPUSCULAR VOLUME 99 fl (80-97); PLATELET COUNT 235 10^3/uL (150-450); RED BLOOD COUNT 5.13 10^6/uL (4.35-5.55); RED CELL DISTRIBUTION WIDTH 12.7 % (11.5-14.0); WHITE BLOOD COUNT 10.4 10^3/uL (4.0-10.5)
[2018-09-10 07:39] LABS: ANION GAP 11 (5-19); BLOOD UREA NITROGEN 16 mg/dL (7-20); CALCIUM 9.4 mg/dL (8.4-10.2); CARBON DIOXIDE 23 mmol/L (22-30); CHLORIDE 106 mmol/L (98-107); GLUCOSE 111 mg/dL (75-110); POTASSIUM 3.9 mmol/L (3.6-5.0); SODIUM 139.7 mmol/L (137-145)
[2018-09-10 09:13] VITALS: BP 119/65
[2018-09-10] MEDS: DOCUSATE SODIUM 100 MG CAPSULE PO SCH (09:17)
[2018-09-10] MEDS: FAMOTIDINE 20 MG TABLET PO SCH (09:24)
[2018-09-10] MEDS: DILTIAZEM HCL 180 MG CAPSULE.CR PO SCH (09:24)
[2018-09-10] MEDS: DRONEDARONE HYDROCHLORIDE 400 MG TABLET PO SCH (09:24)
[2018-09-10] MEDS: MULTIVITAMIN TABLET PO SCH (09:24)
[2018-09-10] MEDS: APIXABAN 5 MG TABLET PO SCH (09:24)
[2018-09-10] MEDS: ASPIRIN 81 MG TABLET, ENT COATED PO SCH (09:24)
[2018-09-10] MEDS: BUDESONIDE NEB 0.5 MG/2 ML AMPUL NEB SCH (09:51)
--- NOTE | 2018-09-10 21:52 | PDOC DISCHARGE SUMMARY ---
General - Admit/Disc Date/PCP Admission Date/Primary Care Provider: 09/07/18 21:03 BRODIE MONTEIRO MD Discharge Date: 09/10/18 - Discharge Diagnosis (1) Atrial fibrillation with rapid ventricular response Is this a current diagnosis for this admission?: Yes - Additional Information Resuscitation Status: Full Code Discharge Diet: Cardiac Discharge Activity: Activity As Tolerated Prescriptions: Amiodarone HCl [Amiodarone HCl 400 mg Tablet] 200 mg PO Q12 #30 tablet Apixaban [Eliquis 5 mg Tablet] 5 mg PO BID #60 tablet Diltiazem HCl [Cardizem Cd 180 mg Capsule] 180 mg PO BID #60 capsule.cr Home Medications: Aspirin [Aspirin EC] 81 mg PO DAILY 10/11/17 Atorvastatin Calcium [Lipitor 10 mg Tablet] 10 mg PO QHS 10/11/17 Multivitamin [Tab-A-Piotr (Multiple Vitamin) Tablet] 1 tab PO DAILY 10/11/17 Amlodipine Besylate [Norvasc 10 mg Tablet] 10 mg PO DAILY 09/08/18 Budesonide/Formoterol Fumarate [Symbicort HFA 160-4.5 mcg Inhaler 6 gm] 2 puff IH Q12 09/08/18 Bupropion HCl [Wellbutrin Xl 300mg 24hr Tablet] 300 mg PO DAILY 09/08/18 Amiodarone HCl [Amiodarone HCl 400 mg Tablet] 200 mg PO Q12 #30 tablet 09/10/18 Apixaban [Eliquis 5 mg Tablet] 5 mg PO BID #60 tablet 09/10/18 Diltiazem HCl [Cardizem Cd 180 mg Capsule] 180 mg PO BID #60 capsule.cr 09/10/18 History of Present Illness History of Present Illness: Admitting hospitalist's H&P: MOHSEN EDGE is a 53 year old male who presented to the emergency room with a history of acute onset moderate chest tightness with moderate to severe palpitations (rapid heart rate) and moderate dyspnea beginning while he was at work ([employer]) just prior to his emergency room presentation. He denied any accompanying symptoms and denied identification of any aggravating or ameliorating factors for his chest tightness, palpitations or dyspnea. He admits at least one prior similar episode for which he was given a "metoprolol to slow down my heart", which he states he had taken as directed earlier in the day prior to going to work. In the emergency room he was found to be hypoxic, hypotensive and tachycardic with atrial fibrillation and a rapid ventricular response. His hypotension was resolved in part with control of his atrial fibrillation rate and vascular volume replacement. His hypoxia also improved dramatically with control of his heart rate. Patient was admitted to inpatient status for further evaluation and treatment of his multiple symptoms. Hospital Course Hospital Course: Mr. Edge is a 53-year-old male with a history of paroxysmal A. fib and hypertension who was admitted for atrial fibrillation with rapid ventricular response. Patient was started on Cardizem drip initially and he subsequently converted to sinus rhythm. He was then switched to PO cardizem. Cardiology also evaluated hodan ontiveros. Patient was started on Eliquis. Risks and benefits of anticoagulation discussed. He has been in sinus rhythm since conversion to sinus on day of presentation. e does follow Dr. Samuel and has been scheduled for sleep study for evaluation of SHIRA. He will be discharge on PO cardizem and Eliquis and will follow up with cardio in a week. Physical Exam Vital Signs: Temp Pulse Resp BP Pulse Ox 97.7 F 85 18 119/65 92 09/10/18 11:16 09/10/18 11:16 09/10/18 11:16 09/10/18 11:16 09/10/18 11:16 Intake & Output 09/09/18 09/10/18 09/11/18 06:59 06:59 06:59 Intake Total 1256 1728 Output Total 0 Balance 1256 1728 Weight 231 lb 7.766 oz 230 lb 9.656 oz General appearance: PRESENT: no acute distress, well-developed, well-nourished Head exam: PRESENT: atraumatic, normocephalic Eye exam: PRESENT: conjunctiva pink, EOMI, PERRLA. ABSENT: scleral icterus Ear exam: PRESENT: normal external ear exam Neck exam: ABSENT: carotid bruit, JVD, lymphadenopathy, thyromegaly Respiratory exam: PRESENT: clear to auscultation celia. ABSENT: rales, rhonchi, wheezes Cardiovascular exam: PRESENT: RRR. ABSENT: diastolic murmur, rubs, systolic murmur Pulses: PRESENT: normal dorsalis pedis pul GI/Abdominal exam: PRESENT: normal bowel sounds, soft. ABSENT: distended, guar ding, mass, organolmegaly, rebound, tenderness Rectal exam: PRESENT: deferred Extremities exam: PRESENT: full ROM. ABSENT: calf tenderness, clubbing, pedal edema Neurological exam: PRESENT: alert, awake, oriented to person, oriented to place, oriented to time, oriented to situation, CN II-XII grossly intact. ABSENT: motor sensory deficit Results Laboratory Results: 09/10/18 06:59 09/10/18 06:59 09/10/18 09/10/18 06:59 06:59 WBC 10.4 RBC 5.13 Hgb 17.2 H Hct 50.5 MCV 99 H MCH 33.5 H MCHC 34.0 RDW 12.7 Plt Count 235 Sodium 139.7 Potassium 3.9 Chloride 106 Carbon Dioxide 23 Anion Gap 11 BUN 16 Creatinine 0.71 Est GFR ( Amer) > 60 Est GFR (Non-Af Amer) > 60 Glucose 111 H Calcium 9.4 Magnesium 2.1 09/07/18 09/07/18 09/07/18 19:29 19:29 19:29 Creatine Kinase 89 CK-MB (CK-2) 1.61 Troponin I < 0.012 Cancelled 09/08/18 09/08/18 09/08/18 01:48 01:48 08:00 Creatine Kinase 73 62 CK-MB (CK-2) 1.31 Troponin I < 0.012 09/08/18 08:00 Creatine Kinase CK-MB (CK-2) 1.55 Troponin I < 0.012 Impressions: Chest X-Ray 09/07/18 19:17 IMPRESSION: Emphysema. Otherwise, no acute radiographic findings in the chest. Qualifiers - * PATIENT BEING DISCHARGED WITH ANY OF THE FOLLOWING DIAGNOSIS: No
== END 2018-09-10 12:06 | disposition home or self-care (01) | DRG 310 ==
LOC: ER 18:44 → EH 21:03 → 3S 22:09
PROVIDERS: ADMIT Emergency Medicine; ATTEND Emergency Medicine
PROC: 3E0F73Z Introduction of Anti-inflammatory into Respiratory Tract, Via Natural or Artificial Opening (ICD-10-PCS; principal; 2018-09-08)
DX: I48.0 Paroxysmal atrial fibrillation (principal); I95.9 Hypotension, unspecified; I10 Essential (primary) hypertension; E78.00 Pure hypercholesterolemia, unspecified; F32.9 Major depressive disorder, single episode, unspecified; E66.9 Obesity, unspecified; F17.220 Nicotine dependence, chewing tobacco, uncomplicated; R09.02 Hypoxemia; Z60.2 Problems related to living alone; Z79.899 Other long term (current) drug therapy; Z79.82 Long term (current) use of aspirin; Z88.8 Allergy status to other drugs, medicaments and biological substances; Z82.49 Family history of ischemic heart disease and other diseases of the circulatory system; Z83.3 Family history of diabetes mellitus; Z90.79 Acquired absence of other genital organ(s)
CPT/HCPCS: 36415; 71045; 80048; 80053; 82550; 82553; 82803; 82962; 83036; 83605; 83735; 84439; 84443; 84481; 84484; 85025; 85027; 85379; 93005; 93010; 93306; 94640; 96361; 96374; 99285; J1650; J3490; J7030; J7120

== ENCOUNTER 2019-06-01 07:44 | Emergency (ER) | payer BC ==
[2019-06-01] MEDS ORDERED: HYDROCODONE/ACETAMINOPHEN 5-325 MG TABLET PO ONE (08:47)
--- NOTE | 2019-06-01 09:03 | ER Document Report ---
ED General Pain - General Chief Complaint: Rib Pain Stated Complaint: RIB PAIN Time Seen by Provider: 06/01/19 08:27 Primary Care Provider: BRODIE MONTEIRO MD [Primary Care Provider] - Follow up as needed Notes: Chief complaint: Right rib pain History of complain:( obtained from----patient) 54 years old male with a history of right rib fracture, COPD, atrial fibrillation currently on Eliquis, presents today with right lower chest wall pain. He developed pain 3 days ago after having a hard cough. Since then each time he moves the pain is increased over the right lower chest wall. No fever chills no productive cough. No other constitutional symptoms Onset: As above sudden Duration: 3 days Severity: Moderate to severe Quality: Sharp Context: As described above Exacerbating factor and relieving factors: As above REVIEW OF SYSTEMS: CONSTITUTIONAL : Denies fever, chills, or sweats. Denies recent illness. EENT: Denies eye, ear, throat, or mouth pain or symptoms. Denies nasal or sinus congestion or discharge. Denies throat, tongue, or mouth swelling or difficulty swallowing. CARDIOVASCULAR: Denies chest pain. Denies palpitations or racing or irregular heart beat. Denies ankle edema. RESPIRATORY: Denies cough, cold, or chest congestion. Denies shortness of breath, difficulty breathing, or wheezing. GASTROINTESTINAL: Denies distention. Denies nausea, vomiting, or diarrhea. D enies blood in vomitus, stools, or per rectum. Denies black, tarry stools. Denies constipation. GENITOURINARY: Denies difficulty urinating, painful urination, burning, frequency, blood in urine, or discharge. FEMALE GENITOURINARY: Denies vaginal bleeding, heavy or abnormal periods, irregular periods. Denies vaginal discharge or odor. MUSCULOSKELETAL: Denies back or neck pain or stiffness. Denies joint pain or swelling. SKIN: Denies rash, lesions or sores. HEMATOLOGIC : Denies easy bruising or bleeding. LYMPHATIC: Denies swollen, enlarged glands. NEUROLOGICAL: Denies confusion or altered mental status. Denies passing out or loss of consciousness. Denies dizziness or lightheadedness. Denies headache. Denies weakness or paralysis or loss of use of either side. Denies problems with gait or speech. Denies sensory loss, numbness, or tingling. Denies seizures. PSYCHIATRIC: Denies anxiety or stress. Denies depression, suicidal ideation, or homicidal ideation. ALL OTHER SYSTEMS REVIEWED AND NEGATIVE. PHYSICAL EXAMINATION: GENERAL: Well-appearing, well-nourished and in mild to moderate acute distress. HEAD: Atraumatic, normocephalic. EYES: Pupils equal round and reactive to light, extraocular movements intact, conjunctiva are normal. ENT: Nares patent, oropharynx clear without exudates. Moist mucous membranes. NECK: Normal range of motion, supple without lymphadenopathy LUNGS: Breath sounds clear to auscultation bilaterally and equal. No wheezes rales or rhonchi. Right lower chest wall tenderness noted on palpation HEART: Regular rate and rhythm without murmurs ABDOMEN: Soft, nontender, nondistended abdomen. No guarding, no rebound. No masses appreciated. Examination of genitals-deferred Musculoskeletal: Normal range of motion, no pitting or edema. No cyanosis. NEUROLOGICAL: Cranial nerves grossly intact. Normal speech, normal gait. Normal sensory, motor exams PSYCH: Normal mood, normal affect. SKIN: Warm, Dry, normal turgor, no rashes or lesions noted. Dictation was performed using [employer] voice recognition software TRAVEL OUTSIDE OF THE [place] IN LAST 30 DAYS: No - HPI Patient complains to provider of: Dictated - Related Data Allergies/Adverse Reactions: chlorpheniramine [From Actifed Cold-Allergy] Allergy (Verified 09/08/18 11:17) phenylephrine [From Actifed Cold-Allergy] Allergy (Verified 09/08/18 11:17) pseudoephedrine [From Actifed Cold-Allergy] Allergy (Verified 09/08/18 11:17) triprolidine [From Actifed Cold-Allergy] Allergy (Verified 09/08/18 11:17) Past Medical History - General Information source: Patient - Social History Smoking Status: Former Smoker Cigarette use (# per day): No Chew tobacco use (# tins/day): No Frequency of alcohol use: Rare Lives with: Family Family History: DM, Hypertension Patient has suicidal ideation: No Patient has homicidal ideation: No - Past Medical History Cardiac Medical History: Reports: Hx Atrial Fibrillation - ? He admits a prior episode of rapid heartbeat treated with metoprolol., Hx Hypercholesterolemia - Mildly elevated cholesterol significantly elevated triglycerides., Hx Hypertension Pulmonary Medical History: Reports: Hx COPD, Hx Pneumonia - Posttraumatic pneumonia after multiple rib fractures. Denies: Hx Asthma Neurological Medical History: Denies: Hx Seizures Endocrine Medical History: Denies: Hx Diabetes Mellitus Type 1, Hx Diabetes Mellitus Type 2, Hx Hyperthyroidism, Hx Hypothyroidism Renal/ Medical History: Denies: Hx Peritoneal Dialysis GI Medical History: Denies: Hx Crohn's Disease, Hx Hepatitis, Hx Ulcerative Colitis Musculoskeletal Medical History: Denies Hx Arthritis, Denies Hx Gout Skin Medical History: Denies Hx Eczema, Denies Hx Psoriasis Psychiatric Medical History: Reports: Hx Depression Traumatic Medical History: Denies: Hx Traumatic Brain Injury Infectious Medical History: Denies: Hx Hepatitis Past Surgical History: Reports: Hx Testicular Surgery - Orchiectomy, Other - Left orchiectomy in the remote past. Review of Systems - Review of Systems Notes: Dictated Physical Exam - Vital signs Vitals: Temp Pulse Resp BP Pulse Ox 97.8 F 78 20 179/104 H 93 06/01/19 07:48 06/01/19 07:48 06/01/19 07:48 06/01/19 07:48 06/01/19 07:48 - Notes Notes: Dictated Course - Vital Signs Vital signs: Temp Pulse Resp BP Pulse Ox 97.8 F 78 20 179/104 H 93 06/01/19 07:48 06/01/19 07:48 06/01/19 07:48 06/01/19 07:48 06/01/19 07:48 - Diagnostic Test Radiology reviewed: Reports reviewed - CT showed no acute fracture, bullous lesions in the lungs due to COPD Discharge - Discharge Clinical Impression: Right-sided chest wall pain Condition: Fair Disposition: HOME, SELF-CARE Instructions: Chest Wall Pain ([facility]) Prescriptions: Baclofen [Baclofen 10 mg Tablet] 10 mg PO TID #30 tablet Hydrocodone/Acetaminophen [[place] 5-325 mg Tablet] 1 tab PO TID #12 tablet Referrals: BRODIE MONTEIRO MD [Primary Care Provider] - Follow up as needed
--- NOTE | 2019-06-01 09:37 | RADIOLOGY REPORT (SQ) ---
EXAM DESCRIPTION: CT CHEST WITHOUT COMPLETED DATE/TIME: 06/01/2019 9:06 am REASON FOR STUDY: Right lower rib pain/spontaneous injury COMPARISON: CT chest, 10/10/2017 TECHNIQUE: CT scan performed of the chest without intravenous contrast. Images reviewed with lung, soft tissue and bone windows. Reconstructed coronal and sagittal MPR images reviewed. All images st ored on PACS. All CT scanners at this facility use dose modulation, iterative reconstruction, and/or weight based d osing when appropriate to reduce radiation dose to as low as reasonably achievable (ALARA). [facility]: Dose Right [facility]: CareDose [facility]: Dose Right [facility]: Teradose 4D [facility]: [employer] RADIATION DOSE: CT Rad equipment meets quality standard of care and radiation dose reduction techniq ues were employed. CTDIvol: 18.4 mGy. DLP: 786 mGy-cm. mGy. LIMITATIONS: No technical limitations. FINDINGS: LUNGS AND PLEURA: Centrilobular emphysema, which is very severe and bullous in the left pu lmonary apex. Bibasilar scarring and/or atelectasis. HILAR AND MEDIASTINAL STRUCTURES: No identified masses or abnormal nodes. No obvious aneurysm. HEART AND VASCULAR STRUCTURES: No aneurysm. No pericardial effusion. Three-vessel coronary artery c alcifications. UPPER ABDOMEN: No significant findings. Limited exam. THYROID AND OTHER SOFT TISSUES: No masses. No adenopathy. BONES: No acute fractures. There are multiple nonacute callused fractures of the right posterior and lateral ribs. HARDWARE: None in the chest. OTHER: No other significant findings. IMPRESSION: 1. Centrilobular emphysema, which is very severe and bullous in the left pulmonary apex. Bibasilar scarring and/or atelectasis. 2. No acute fractures. There are multiple nonacute callused fractures of the right posterior and lat eral ribs. 3. Coronary artery disease. TECHNICAL DOCUMENTATION: JOB ID: [id number] Quality ID # [id number]: Final reports with documentation of one or more dose reduction techniques (e.g., Au tomated exposure control, adjustment of the mA and/or kV according to patient size, use of iterative reconstruction technique) 2010 [employer]- All Rights Reserved Reading location - IP/workstation name: [email or web address]
[2019-06-01 10:31] VITALS: BP 162/98
== END 2019-06-01 10:53 | disposition home or self-care (01) ==
LOC: ER 07:44
DX: R07.81 Pleurodynia (principal); E78.00 Pure hypercholesterolemia, unspecified; J44.9 Chronic obstructive pulmonary disease, unspecified; I48.91 Unspecified atrial fibrillation; Z90.79 Acquired absence of other genital organ(s); Z79.01 Long term (current) use of anticoagulants
CPT/HCPCS: 71250; 99283

== ENCOUNTER 2020-06-21 06:52 | Day surgery (SDC) | payer BC ==
[2020-06-16 10:38] LABS: HEMOGLOBIN 18.1 g/dL (13.5-17.0); MEAN CORPUSCULAR HEMOGLOBIN 34.5 pg (27.0-33.4); MEAN CORPUSCULAR HGB CONC 34.7 g/dL (32.0-36.0); MEAN CORPUSCULAR VOLUME 99 fl (80-97); PLATELET COUNT 219 10^3/uL (150-450); RED BLOOD COUNT 5.24 10^6/uL (4.35-5.55); RED CELL DISTRIBUTION WIDTH 13.9 % (11.5-14.0)
[2020-06-16 10:52] LABS: APPEARANCE,URINE SLIGHTLY-CLOUDY; BILIRUBIN,URINE NEGATIVE (NEGATIVE); COLOR,URINE YELLOW; GLUCOSE, URINE NEGATIVE (NEGATIVE); KETONES,URINE NEGATIVE (NEGATIVE); LEUKOCYTE ESTERASE,URINE NEGATIVE (NEGATIVE); NITRITE,URINE NEGATIVE (NEGATIVE); PROTEIN,URINE NEGATIVE (NEGATIVE); URINE SPECIFIC GRAVITY 1.024; UROBILINOGEN,URINE NEGATIVE mg/dL (<2.0)
[2020-06-16 11:01] LABS: ANION GAP 9 (5-19); BLOOD UREA NITROGEN 29 mg/dL (7-20); CALCIUM 9.7 mg/dL (8.4-10.2); CARBON DIOXIDE 29 mmol/L (22-30); CHLORIDE 103 mmol/L (98-107); GLUCOSE 111 mg/dL (75-110)
--- NOTE | 2020-06-16 14:00 | RADIOLOGY REPORT (SQ) ---
EXAM DESCRIPTION: CHEST PA/LATERAL IMAGES COMPLETED DATE/TIME: 06/16/2020 1:44 pm REASON FOR STUDY: PRE-OP COMPARISON: 09/07/2018 EXAM PARAMETERS: NUMBER OF VIEWS: two views TECHNIQUE: Digital Frontal and Lateral radiographic views of the chest acquired. RADIATION DOSE: NA LIMITATIONS: none FINDINGS: LUNGS AND PLEURA: Chronic changes in the lateral right lung. No acute infiltrate. There is considerable lucency in the left apex. Chronic interstitial changes. MEDIASTINUM AND HILAR STRUCTURES: No masses or contour abnormalities. HEART AND VASCULAR STRUCTURES: The heart size is borderline. No pulmonary edema. BONES: No acute findings. HARDWARE: None in the chest. OTHER: No other significant finding. IMPRESSION: Borderline cardiomegaly without pulmonary edema. Chronic lung changes. No acute pulmon chiqui findings. TECHNICAL DOCUMENTATION: JOB ID: [id number] 2010 [employer]- All Rights Reserved Reading location - IP/workstation name: [email or web address]
--- NOTE | 2020-06-16 22:03 | EKG REPORT ---
SEVERITY:- ABNORMAL ECG - SINUS RHYTHM NONSPECIFIC IVCD WITH LAD PROBABLE INFERIOR INFARCT, OLD : Confirmed by: Jennifer Vick MD 16-Jun-2020 22:02:01
--- NOTE | 2020-06-16 22:03 | EKG REPORT ---
SEVERITY:- ABNORMAL ECG - SINUS RHYTHM NONSPECIFIC IVCD WITH LAD : Confirmed by: Jennifer Vick MD 16-Jun-2020 22:01:57
[~2020-06-21 06:52] MED LIST: CEFAZOLIN 2 GM/D5W RTU 2 GM/50 ML RTUPB IV ONE; CEFAZOLIN 2 GM/D5W RTU 2 GM/50 ML RTUPB IV PRN; LACTATED RINGERS 1000 ML IV PRN; LIDOCAINE 0.5% INJ-PF (5 MG/ML) 50 ML SDV SUBCUT PRN
[2020-06-21 08:14] LABS: PROTHROMBIN TIME 12.3 SEC (11.4-15.4)
[2020-06-21] MEDS ORDERED: BUPIVACAINE HCL 0.5 % INJ/PF 30 ML SDV ONE (11:25)
[2020-06-21] MEDS ORDERED: LIDOCAINE 1% INJ-PF (10 MG/ML) 30 ML SDV ONE (11:26)
[2020-06-21] MEDS ORDERED: FENTANYL CITRATE INJ/PF 100 MCG/2 ML AMPUL ONE (11:30)
[2020-06-21] MEDS ORDERED: PROPOFOL INJ 200 MG/20 ML VIAL IV ONE (11:30)
[2020-06-21] MEDS ORDERED: MIDAZOLAM 2 MG/2 ML INJ ONE (11:30)
[2020-06-21] MEDS ORDERED: ONDANSETRON HCL INJ/PF 4 MG/2 ML SDV ONE (11:31)
[2020-06-21] MEDS ORDERED: FENTANYL CITRATE INJ/PF 100 MCG/2 ML AMPUL IV PRN ×3 (12:18)
[2020-06-21] MEDS ORDERED: MORPHINE SULFATE 10 MG/ML INJ IV PRN (12:18)
[2020-06-21] MEDS ORDERED: PROMETHAZINE HCL INJ 25 MG/1 ML VIAL IV PRN ×2 (12:18)
[2020-06-21] MEDS ORDERED: MEPERIDINE HCL/PF INJ 25 MG/1 ML DISP.SYRIN IV PRN (12:18)
[2020-06-21] MEDS ORDERED: OXYCODONE-ACETAMINOPHEN 5-325 MG TABLET PO PRN ×2 (12:18)
[2020-06-21] MEDS ORDERED: ALBUTEROL SULFATE 0.083% NEB 2.5 MG/3 ML AMPUL NEB ONE (12:59)
[2020-06-21 15:21] VITALS: BP 124/71
--- NOTE | 2020-06-28 07:32 | Discharge Summary ---
Discharge Summary (SDC) - Discharge Final Diagnosis: Left carpal tunnel syndrome Date of Surgery: 06/21/20 Discharge Date: 06/21/20 Condition: Good Treatment or Instructions: Schedule Follow Up w/ Dr. Bright Mccain @ [facility] to be seen in 10-14 days or as scheduled [place]: [place]: [place]: May remove dressing on postop day #3, keep incision covered and dry. Ice and elevate May begin finger range of motion attempting to make full fist. Stool softener of choice when on pain medication. USE OF [id number] IBUPROFEN: Ibuprofen (Advil, Nuprin, Medipren, Motrin IB) is a medication for fever and pain control. In addition, it has anti- inflammatory effects which may be beneficial, especially in the treatment of injuries. It's best to take ibuprofen with food. Persons with ulcer disease or allergy to aspirin should notify their physician of this before taking ibuprofen. Ibuprofen can be given every four to six hours, for a total of four doses daily. Age Pain or fever dose Antiinflammatory dose 6-8 yr 200 mg (1 tab) 200 mg (1 tab) 9-11 yr 200 mg (1 tab) 200-400 mg (1-2 tab) 11-14 yr 200-400 mg (1-2 tab) 400 mg (2 tab) 15-adult 400 mg (2 tab) 600 mg (3 tab) ORAL NARCOTIC MEDICATION: You have been given a prescription for pain control. This medication is a narcotic. It's best taken with food, as nausea can result if taken on an empty stomach. Don't operate machinery or drive within six hours of taking this medication. Do not combine this medicine with alcohol, or with any medication which can cause sedation (such as cold tablets or sleeping pills) unless you get permission from the physician. Narcotics tend to cause constipation. If possible, drink plenty of fluids and eat a diet high in fiber and fruits. Please be aware that prescription narcotics also have the potential for abuse. People become addicted to these medications because of the general sense of wellbeing that they induce. This feeling along with a significant reduction in tension, anxiety, and aggression provides a stimulating seductive quality to these drugs. Once your pain is under control, we encourage you to discard your unused narcotics. Prescriptions: Hydrocodone/Acetaminophen [[place] 5-325 mg Tablet] 1 tab PO Q6 PRN #12 tablet PRN Reason: Referrals: BRODIE MONTEIRO MD [Primary Care Provider] - Discharge Diet: As Tolerated Respiratory Treatments at Home: Deep Breathing/Coughing, Incentive Spirometer Discharge Activity: No Lifting Over 10 Pounds, No Lifting/Push/Pulling Report the Following to Your Physician Immediately: Fever over 101 Degrees, Unusual Bleeding, Redness, Swelling, Warmth, Increased Soreness
--- NOTE | 2020-06-28 07:32 | Operative Report ---
Operative Report DATE OF SURGERY: 06/21/20 PREOPERATIVE DIAGNOSIS: Left carpal tunnel syndrome POSTOPERATIVE DIAGNOSIS: Same OPERATION: Left endoscopic carpal tunnel release SURGEON: ELIZABETH MCLEOD ANESTHESIA: LMAC COMPLICATIONS: None ESTIMATED BLOOD LOSS: Minimal PROCEDURE: Indication for above procedure: 55-year-old male with numbness and tingling along the median nerve distribution. Patient electrodiagnostic testing confirming carpal tunnel syndrome after failed conservative management decision was made to proceed with operative inter vention. Risk and benefits of the surgical procedure were explained patient verbalized understanding consented for surgical procedure. Procedure In Detail: Patient was seen and evaluated in the preoperative holding area. The LEFT upper extremity was initialized and marked. Patient received Ancef IV for bacterial prophylaxis. Patient was taken back to the operative room where transferred operative table. Patient was then placed under MAC anesthesia. Once adequately anesthetized, a nonsterile tourniquet was placed on the upper extremity. A surgical team debriefing was performed ensuring all instrumentation was available, the surgical procedure was discussed with possible concerns reviewed. Skin was prepped with alcohol and 10cc of 1% lidocaine without epinephrine was injected locally and w/in carpal canal. The upper extremity was prepped with chlorhexidine and alcohol and draped in a sterile fashion. A timeout was done identifying correct patient, procedure and extremity everyone in attendance agree with this and verbalized no concerns.The extremity was then exsanguinated the tourniquet was inflated to 250 mmHg. A transverse skin incision was made just proximal to the wrist flexion crease ulnar to the palmaris longus. Blunt dissection was performed down to the palmaris longus tendon which was retracted radially. Deep to the palmaris longus tendon was the volar carpal ligament this was incised identifying the median nerve deep. With the use of a Leola elevator any soft tissue/synovium was freed from the undersurface of the transverse carpal ligament. The hook of hamate was identified ulnarly. The ConMed cannulas were then introduced beginning with #1 progressing to a #3 gently dilating the carpal canal. I then introduced the scope within the cannula and identified transverse carpal ligament ensuring the median nerve was not visualized within the cannula. I triangulated distally with a 25-gauge needle identifying the distal aspect of the transverse carpal ligament, to ensure protection of the superficial palmar arch. The arthroscopic knife was used to incise the transverse carpal ligament under direct visualization with the arthroscopic camera. Any excess transverse fibers that remained after the first past were carefully released with a repeat pass. The median nerve was then directly visualized radially without disruption. Once this was completed I placed the #3 dilator and assured I got complete release of the transverse carpal ligament without residual compression. The median nerve was directly visualized and free of any overlying compression. I then turned my attention to release of the volar antebrachial fascia proximally. Once again a Leola was used to open the wound and I proceeded with cannula #1 to #3. The arthroscope was introduced into the cannula and under direct visualization the volar antebrachial fascia was released. Once this was complete I copiusly irrigated the wound with normal saline. The skin incision was closed with 4-0 Monocryl subcutaneous and a running subcuticular 4-0 Monocryl. This was reinforced with Dermabond and Steri-Strips. Sterile, 4 x 4's and a Iain bandage was placed loosely. Sponge counts, instrument counts and needle counts were correct. The was no intraoperative complications patient tolerated the procedure well and was stable to PACU.
== END 2020-06-21 15:30 | disposition home or self-care (01) ==
LOC: OROUT 06:52
PROVIDERS: ATTEND Orthopaedic Surgery
DX: G56.02 Carpal tunnel syndrome, left upper limb (principal); I10 Essential (primary) hypertension; J43.8 Other emphysema; I25.10 Atherosclerotic heart disease of native coronary artery without angina pectoris; F17.210 Nicotine dependence, cigarettes, uncomplicated; Z03.818 Encounter for observation for suspected exposure to other biological agents ruled out; I48.91 Unspecified atrial fibrillation; Z79.899 Other long term (current) drug therapy; F32.9 Major depressive disorder, single episode, unspecified; Z79.01 Long term (current) use of anticoagulants; Z01.810 Encounter for preprocedural cardiovascular examination; Z01.811 Encounter for preprocedural respiratory examination
CPT/HCPCS: 93005 ×2; 36415 ×2; 84132; 85027; 85610; 85730; 80048; 81001; 83036; 71046; 93010 ×2; 01810; 29848; U0003; J2250; J3010; J3490; J2405; J2704; J7613; J0690; C9803; 1810; 87635

== ENCOUNTER 2020-07-27 14:06 | Inpatient (IN) | payer BC ==
--- NOTE | 2020-07-27 14:22 | ER Document Report ---
ED Medical Screen (RME) - General Chief Complaint: Breathing Difficulty Stated Complaint: TROUBLE BREATHING Time Seen by Provider: 07/27/20 14:13 Primary Care Provider: BRODIE MONTEIRO MD [Primary Care Provider] - Follow up as needed Mode of Arrival: Wheelchair Information source: Patient Notes: 55-year-old male presented to ED for severe shortness of breath. O2 was 70 when he first walked in the room. At 2 L we got him up to 80% O2 sat. 4 L I have him up to an 82 and 84. He does have very tight wheezes throughout. I have called charge for a room. I have greeted and performed a rapid initial assessment of this patient. A comprehensive ED assessment and evaluation of the patient, analysis of test results and completion of medical decision making process will be conducted by an additional ED providers. TRAVEL OUTSIDE OF THE [place] IN LAST 30 DAYS: No - Related Data Allergies/Adverse Reactions: chlorpheniramine [From Actifed Cold-Allergy] Allergy (Verified 07/27/20 14:13) phenylephrine [From Actifed Cold-Allergy] Allergy (Verified 07/27/20 14:13) pseudoephedrine [From Actifed Cold-Allergy] Allergy (Verified 07/27/20 14:13) triprolidine [From Actifed Cold-Allergy] Allergy (Verified 07/27/20 14:13) Past Medical History - Past Medical History Cardiac Medical History: Reports: Hx Atrial Fibrillation - ? He admits a prior episode of rapid heartbeat treated with metoprolol., Hx Hypercholestero lemia - Mildly elevated cholesterol significantly elevated triglycerides., Hx Hypertension Denies: Hx Coronary Artery Disease, Hx Heart Attack Pulmonary Medical History: Reports: Hx COPD - hx , Hx Pneumonia - hx Denies: Hx Asthma, Hx Bronchitis Neurological Medical History: Denies: Hx Cerebrovascular Accident, Hx Seizures Endocrine Medical History: Denies: Hx Diabetes Mellitus Type 1, Hx Diabetes Mellitus Type 2, Hx Hyperthyroidism, Hx Hypothyroidism Renal/ Medical History: Denies: Hx Peritoneal Dialysis GI Medical History: Denies: Hx Crohn's Disease, Hx Hepatitis, Hx Ulcerative Colitis Musculoskeltal Medical History: Reports Hx Arthritis - mild, Denies Hx Gout Skin Medical History: Denies Hx Eczema, Denies Hx Psoriasis Psychiatric Medical History: Reports: Hx Depression Traumatic Medical History: Denies: Hx Traumatic Brain Injury Infectious Medical History: Denies: Hx Hepatitis Past Surgical History: Reports: Hx Testicular Surgery - Orchiectomy, Other - Left orchiectomy in the remote past. - Immunizations Hx Diphtheria, Pertussis, Tetanus Vaccination: Yes Doctor's Discharge - Discharge Referrals: BRODIE MONTEIRO MD [Primary Care Provider] - Follow up as needed
[2020-07-27] MEDS ORDERED: METHYLPREDNISOLONE INJ 125 MG/2 ML SDV IV ONE (15:44)
[2020-07-27] MEDS ORDERED: CEFTRIAXONE 1 GM/D5W RTU 1 GM/50 ML RTUPB IV ONE (15:45)
[2020-07-27] MEDS ORDERED: AZITHROMYCIN INJ 500 MG VIAL IV ONE (15:46)
[2020-07-27 15:51] LABS: ABSOLUTE BASOPHILS # (AUTO) 0.1 10^3/uL (0.0-0.2); ABSOLUTE EOSINOPHILS # (AUTO) 0.1 10^3/uL (0.0-0.6); ABSOLUTE LYMPHOCYTES (AUTO) 1.3 10^3/uL (0.5-4.7); ABSOLUTE MONOCYTES (AUTO) 1.6 10^3/uL (0.1-1.4); ABSOLUTE NEUT (AUTO) 11.9 10^3/uL (1.7-8.2); BASOPHILS % (AUTO) 0.5 % (0-2); EOSINOPHILS % (AUTO) 0.9 % (0-6); HEMATOCRIT 47.6 % (37.9-51.0); HEMOGLOBIN 17.1 g/dL (13.5-17.0); LYMPHOCYTES % (AUTO) 8.6 % (13-45); MEAN CORPUSCULAR HEMOGLOBIN 35.1 pg (27.0-33.4); MEAN CORPUSCULAR HGB CONC 35.8 g/dL (32.0-36.0); MEAN CORPUSCULAR VOLUME 98 fl (80-97); MONOCYTES % (AUTO) 10.8 % (3-13); PLATELET COUNT 233 10^3/uL (150-450); RED BLOOD COUNT 4.87 10^6/uL (4.35-5.55); RED CELL DISTRIBUTION WIDTH 13.2 % (11.5-14.0); SEGMENTED NEUTROPHILS % (AUTO) 79.2 % (42-78); TOTAL CELLS COUNTED % (AUTO) 100 %; WHITE BLOOD COUNT 15.1 10^3/uL (4.0-10.5)
--- NOTE | 2020-07-27 16:05 | RADIOLOGY REPORT (SQ) ---
EXAM DESCRIPTION: CHEST SINGLE VIEW IMAGES COMPLETED DATE/TIME: 07/27/2020 2:55 pm REASON FOR STUDY: severe short of breath COMPARISON: AP chest 06/16/2020 EXAM PARAMETERS: NUMBER OF VIEWS: One view. TECHNIQUE: Single frontal radiographic view of the chest acquired. RADIATION DOSE: NA LIMITATIONS: None. FINDINGS: LUNGS AND PLEURA: Upper lobes are hyperlucent from obstructive disease. In the mid and lower lung, there is alveolar and interstitial infiltrates from pulmonary edema or pne um[place] MEDIASTINUM AND HILAR STRUCTURES: No masses. Contour normal. HEART AND VASCULAR STRUCTURES: Mild cardiomegaly, stable BONES: Multiple old healed right posterior and lateral rib fractures HARDWARE: None in the chest. OTHER: No other significant finding. IMPRESSION: Obstructive lung disease Mid and lower lung alveolar and interstitial infiltrates, edema versus pneumonia TECHNICAL DOCUMENTATION: JOB ID: [id number] 2010 [employer]- All Rights Reserved Reading location - IP/workstation name: [id number]
--- NOTE | 2020-07-27 16:09 | ER Document Report ---
ED General - General Chief Complaint: Shortness Of Breath Stated Complaint: TROUBLE BREATHING Time Seen by Provider: 07/27/20 14:13 Primary Care Provider: BRODIE MONTEIRO MD [Primary Care Provider] - Follow up as needed Mode of Arrival: Wheelchair TRAVEL OUTSIDE OF THE [place] IN LAST 30 DAYS: No - HPI Notes: Chief complaint: Shortness of breath and cough History of present illness: 55-year-old male followed by Dr. Monteiro with history of heavy cigarette smoking and COPD with as needed use of oxygen presents now with increasing shortness of breath over several days associated with production of yellow sputum and intermittent low-grade temperature. He denies known Covid exposure. Says that he had a Covid nasal swab which was negative about 1 month ago when he underwent preop testing for carpal tunnel repair. He denies chest pain. He denies vomiting. He continues to smoke about 1 pack of cigarettes per day. Patient has a history of paroxysmal atrial fibrillation and is on Eliquis. He says he is fully compliant with his medication. - Related Data Allergies/Adverse Reactions: chlorpheniramine [From Actifed Cold-Allergy] Allergy (Verified 07/27/20 14:13) phenylephrine [From Actifed Cold-Allergy] Allergy (Verified 07/27/20 14:13) pseudoephedrine [From Actifed Cold-Allergy] Allergy (Verified 07/27/20 14:13) triprolidine [From Actifed Cold-Allergy] Allergy (Verified 07/27/20 14:13) Home Medications: see copy of patient list on chart. symbicort, spiriva, albuterol, cartiaxt, eliquis, hctz, metoprolol tart, asa, escitalopram, atorvastatin, amiodarone Past Medical History - General Information source: Patient - Social History Smoking Status: Current Every Day Smoker Chew tobacco use (# tins/day): No Frequency of alcohol use: Social Drug Abuse: None Family History: DM, Hypertension Patient has homicidal ideation: No - Past Medical History Cardiac Medical History: Reports: Hx Atrial Fibrillation - ? He admits a prior episode of rapid heartbeat treated with metoprolol., Hx Hypercholesterolemia - Mildly elevated cholesterol significantly elevated triglycerides., Hx Hypertension Denies: Hx Coronary Artery Disease, Hx Heart Attack Pulmonary Medical History: Reports: Hx COPD - hx , Hx Pneumonia - hx Denies: Hx Asthma, Hx Bronchitis Neurological Medical History: Denies: Hx Cerebrovascular Accident, Hx Seizures Endocrine Medical History: Denies: Hx Diabetes Mellitus Type 1, Hx Diabetes Mellitus Type 2, Hx Hyperthyroidism, Hx Hypothyroidism Renal/ Medical History: Denies: Hx Peritoneal Dialysis GI Medical History: Denies: Hx Crohn's Disease, Hx Hepatitis, Hx Ulcerative Colitis Musculoskeletal Medical History: Reports Hx Arthritis - mild, Denies Hx Gout Skin Medical History: Denies Hx Eczema, Denies Hx Psoriasis Psychiatric Medical History: Reports: Hx Depression Traumatic Medical History: Denies: Hx Traumatic Brain Injury Infectious Medical History: Denies: Hx Hepatitis Past Surgical History: Reports: Hx Testicular Surgery - Orchiectomy, Other - Left orchiectomy in the remote past. - Immunizations Hx Diphtheria, Pertussis, Tetanus Vaccination: Yes Review of Systems - Review of Systems Notes: Constitutional: As per HPI. HENT: Negative for sore throat. Eyes: Negative for visual changes. Cardiovascular: Negative for chest pain. Respiratory: As per HPI. Gastrointestinal: Negative for abdominal pain, vomiting or diarrhea. Genitourinary: Negative for dysuria. Musculoskeletal: Negative for back pain. Skin: Negative for rash. Neurological: Negative for headaches, weakness or numbness. 10 point ROS negative except as marked above and in HPI. Physical Exam - Vital signs Vitals: Temp 97.7 F 07/27/20 14:14 - Notes Notes: GENERAL: Male patient of approximately stated age appears moderately dyspneic. SKIN: Good turgor no rashes. HEAD: Normocephalic atraumatic. EYES: PERRLA. EOMI. Conjunctivae and sclerae clear. EARS: CANALS AND TMS CLEAR. NOSE: CLEAR. MOUTH: Moist mucosa. Good dentition. No stridor or edema. No drooling. NECK: Supple. No masses or thyromegaly. No adenopathy. Carotids 2+ without bruits. No JVD. BACK: Symmetrical without tenderness. CHEST: Respirations are mildly labored and patient is tachypneic. Scattered rhonchi and faint wheezes bilaterally. Decreased breath sounds right base. HEART: Regular rhythm. No murmur gallop or rub. ABDOMEN: Soft nontender without masses, organomegaly or rebound. Bowel sounds normally active. No bruits. GENITALIA: Deferred. EXTREMITIES: No edema. No calf tenderness. Cap refill less than 1.5 seconds. Dorsalis pedis and posterior tibial pulses 3+ and symmetrical. NEUROLOGICAL: GCS 15. Alert and oriented x3. Fluent speech. Cranial nerves II through XII intact. Sensorimotor and cerebellar normal. Normal tone. PSYCHIATRIC: Appropriate affect. Course - Re-evaluation Re-evalutation: 07/27/20 16:12 Patient initially required assistance with BiPAP. His condition has been stable on BiPAP. His chest x-ray suggests a new right lower lobe infiltrate as well as some chronic pleural changes on the right side. We treated him as a community- acquired pneumonia administering Rocephin and azithromycin. We will speak with the hospitalist regarding admission. - Vital Signs Vital signs: Temp Pulse Resp BP Pulse Ox 97.7 F 77 19 135/75 H 93 07/27/20 14:22 07/27/20 14:22 07/27/20 15:44 07/27/20 15:01 07/27/20 15:44 - Laboratory Result Diagrams: 07/27/20 14:55 07/27/20 14:55 Laboratory results interpreted by me: 07/27/20 07/27/20 14:55 14:55 WBC 15.1 H Hgb 17.1 H MCV 98 H MCH 35.1 H Lymph % (Auto) 8.6 L Absolute Neuts (auto) 11.9 H Absolute Monos (auto) 1.6 H Seg Neutrophils % 79.2 H Sodium 136.7 L Potassium 3.5 L Chloride 97 L BUN 27 H Glucose 117 H ALT 51 H Creatine Kinase 187 H - Diagnostic Test Radiology reviewed: Image reviewed, Reports reviewed - EKG Interpretation by Me Additional EKG results interpreted by me: 07/27/20 16:13 Twelve-lead EKG reviewed by me contemporaneously: 1544 hrs. Indication for study: Dyspnea Rhythm: Normal sinus Rate: 66 Intervals: QRS 120 ms QRS axis: Incomplete left bundle branch block ST/T wave changes: Nonspecific Comparison with prior tracing: Substantially unchanged compared with prior tracing of 06/16/2020 Interpretation: Incomplete left bundle branch block Critical Care Note - Critical Care Note Total time excluding time spent on procedures (mins): 35 - BiPAP Discharge - Discharge Clinical Impression: Obstructive pulmonary disease, Cigarette smoker Acute and chronic respiratory failure ([id number]) Qualifiers: Respiratory failure complication: hypoxia Qualified Code(s): J96.21 - Acute and chronic respiratory failure with hypoxia Pneumonia Qualifiers: Pneumonia type: due to unspecified organism Laterality: right Lung location: unspecified part of lung Qualified Code(s): J18.9 - Pneumonia, unspecified organism Condition: Serious Disposition: ADMITTED INPATIENT Admitting Provider: Charu (Hospitalist) Unit Admitted: IMCU Referrals: BRODIE MONTEIRO MD [Primary Care Provider] - Follow up as needed
[2020-07-27 16:11] LABS: ALBUMIN 3.5 g/dL (3.5-5.0); ALKALINE PHOSPHATASE 123 U/L (38-126); ANION GAP 10 (5-19); ASPARTATE AMINO TRANSFERASE 53 U/L (17-59); BILIRUBIN,DIRECT 0.2 mg/dL (0.0-0.4); BILIRUBIN,TOTAL 0.7 mg/dL (0.2-1.3); BLOOD UREA NITROGEN 27 mg/dL (7-20); CARBON DIOXIDE 30 mmol/L (22-30); CHLORIDE 97 mmol/L (98-107); CREATINE KINASE 187 U/L (55-170); GLUCOSE 117 mg/dL (75-110); POTASSIUM 3.5 mmol/L (3.6-5.0); TOTAL PROTEIN 6.7 g/dL (6.3-8.2)
[2020-07-27 16:20] LABS: A TYPE INFLUENZA AG NEGATIVE (NEGATIVE); B INFLUENZA AG NEGATIVE (NEGATIVE)
[2020-07-27 18:18] LABS: ARTERIAL BLOOD BASE EXCESS 4.6 mmol/L; ARTERIAL BLOOD FIO2 80%; ARTERIAL BLOOD H2CO3 1.49 mmol/L (1.05-1.35); ARTERIAL BLOOD HCO3 30.6 mmol/L (20-24); ARTERIAL BLOOD O2 SATURATION 93.8 % (94-98); ARTERIAL BLOOD PCO2 49.5 mmHg (35-45); ARTERIAL BLOOD PH 7.41 (7.35-7.45); ARTERIAL BLOOD PO2 69.2 mmHg (80-100); ARTERIAL BLOOD TOTAL CO2 32.1 mmol/L (23-27)
--- NOTE | 2020-07-27 18:59 | EKG REPORT ---
SEVERITY:- ABNORMAL ECG - SINUS RHYTHM INCOMPLETE LEFT BUNDLE BRANCH BLOCK EXCESSIVE BASELINE ARTEFACT( AFFECTS RHYTHM INTERPRETATION) : Confirmed by: Jonnie Johnson MD 27-Jul-2020 18:59:32
--- NOTE | 2020-07-27 19:22 | Progress Note ---
Provider Note Provider Note: Saw and examined patient. Patient is significantly hypoxic. Obtained ABG which shows PO2 of 69 on 80% FiO2 on BiPAP. PAO2/FIO2 ratio of 86. Discussed case with energy efficiency specialist Dr. Jiang who has accepted patient to the ICU. Notified ER nurse.
[2020-07-27] MEDS ORDERED: ALBUTEROL SULFATE HFA (90 MCG/PUFF) 8 GM MDI (1 MDI/ER DISP) IH PRN (20:59)
[2020-07-27] MEDS ORDERED: FUROSEMIDE INJ/PF 20 MG/2 ML SDV IV ONE (21:00)
[2020-07-27] MEDS ORDERED: ALBUTEROL SULFATE HFA (90 MCG/PUFF) 8 GM MDI IH PRN (21:10)
[2020-07-27] MEDS ORDERED: AMIODARONE HCL 200 MG PO SCH (22:00)
[2020-07-27] MEDS ORDERED: ACETAMINOPHEN 325 MG TABLET PO PRN (22:05)
[2020-07-27] MEDS ORDERED: ALBUTEROL SULFATE 0.083% NEB 2.5 MG/3 ML AMPUL NEB SCH (22:05)
[2020-07-27 22:36] LABS: ARTERIAL BLOOD BASE EXCESS 5.3 mmol/L; ARTERIAL BLOOD H2CO3 1.43 mmol/L (1.05-1.35); ARTERIAL BLOOD O2 SATURATION 94.5 % (94-98); ARTERIAL BLOOD PCO2 47.6 mmHg (35-45); ARTERIAL BLOOD PH 7.43 (7.35-7.45); ARTERIAL BLOOD PO2 70.8 mmHg (80-100); ARTERIAL BLOOD TOTAL CO2 32.4 mmol/L (23-27)
[2020-07-27 22:37] LABS: ARTERIAL BLOOD FIO2 80%
[2020-07-27] MEDS ORDERED: DEXTROSE 50%-WATER 25 GM/50 ML DISP.SYRIN IV PRN ×2 (22:50)
[2020-07-27] MEDS ORDERED: GLUCAGON,HUMAN RECOMB 1 MG INJ SUBCUT PRN (22:50)
[2020-07-27] MEDS ORDERED: DEXTROSE 40% GEL 15 GM TUBE PO PRN ×2 (22:50)
[2020-07-27] MEDS: APIXABAN 5 MG TABLET PO SCH (22:57)
[2020-07-27] MEDS: AMIODARONE HCL 200 MG TABLET PO SCH (22:57)
[2020-07-27] MEDS: ATORVASTATIN CALCIUM 10 MG TABLET PO SCH (22:57)
[2020-07-27] MEDS: METOPROLOL TARTRATE 50 MG TABLET PO SCH (22:57)
[2020-07-27] MEDS: FAMOTIDINE 20 MG TABLET PO SCH (22:58)
[2020-07-27] MEDS ORDERED: FUROSEMIDE INJ/PF 100 MG/10 ML SDV IV ONE (22:59)
[2020-07-27] MEDS ORDERED: CEFTRIAXONE 2 GM/D5W RTU 2 GM/50 ML RTUPB IV SCH (23:30)
[2020-07-27] MEDS ORDERED: IPRATROPIUM/ALBUTEROL 0.5-2.5 MG/3 ML AMPUL NEB ONE (23:47)
[2020-07-28] MEDS ORDERED: FUROSEMIDE INJ/PF 100 MG/10 ML SDV ONE (00:08)
[2020-07-28] MEDS: IPRATROPIUM/ALBUTEROL 0.5-2.5 MG/3 ML AMPUL NEB SCH ×5 (00:11→20:47)
[2020-07-28] MEDS: ALBUTEROL SULFATE 0.083% NEB 2.5 MG/3 ML AMPUL NEB SCH ×5 (00:12→20:46)
[2020-07-28] MEDS ORDERED: CEFEPIME 2 GM/D5W RTU 2 GM/50 ML RTUPB IV ONE (00:34)
--- NOTE | 2020-07-28 00:57 | CRITICAL CARE ADMISSION REPORT ---
HPI Date:: 07/27/20 Time:: 20:00 Reason for ICU Reason:: COPD exacerbation, CHF Admission Date/Time & PCP: Admission Date/Time: 07/27/20 17:13 Primary Care Provider: BRODIE MONTEIRO MD HPI: 55-year-old male followed by Dr. Monteiro with history of heavy cigarette smoking and COPD with as needed use of oxygen presents now with increasing shortness of breath over several days associated with production of yellow sputum and intermittent low-grade temperature. He denies known Covid exposure. Says that he had a Covid nasal swab which was negative about 1 month ago when he underwent preop testing for carpal tunnel repair. He denies chest pain. He denies vomiting. He continues to smoke about 1 pack of cigarettes per day. Patient has a history of paroxysmal atrial fibrillation and is on Eliquis. He says he is fully compliant with his medication. - Diagnosis/Plan (1) Cigarette smoker Is this a current diagnosis for this admission?: Yes Plan: Smoking Cesation (2) Pneumonia Qualifiers: Pneumonia type: due to unspecified organism Laterality: right Lung location: lower lobe of lung Qualified Code(s): J18.9 - Pneumonia, unspecified organism Is this a current diagnosis for this admission?: Yes Plan: On Cefepime / Azithromycin Sputum Culture pending BIPAP (3) Acute on chronic respiratory failure with hypoxemia Is this a current diagnosis for this admission?: Yes Plan: on BIPAP, IV ABT for CAP Sputum culture pending Scheduled Nebs Furosemide daily (4) COPD exacerbation Is this a current diagnosis for this admission?: Yes Plan: albuterol nebs every 4hours Solumedrol Furosemide IV daily (5) Hypertension Qualifiers: Is this a current diagnosis for this admission?: Yes Plan: Continue beta peggy Furosemide IV daily Past Medical History Cardiac Medical History: Reports: Atrial Fibrillation - ? He admits a prior episode of rapid heartbeat treated with metoprolol., Hyperlipidema - Mildly elevated cholesterol significantly elevated triglycerides., Hypertension Denies: Coronary Artery Disease, Myocardial Infarction Pulmonary Medical History: Reports: Chronic Obstructive Pulmonary Disease (COPD) - hx , Pneumonia - hx, Respiratory Failure Denies: Asthma, Bronchitis Neurological Medical History: Denies: Seizures Endocrine Medical History: Denies: Diabetes Mellitus Type 1, Diabetes Mellitus Type 2, Hyperthyroidism, Hypothyroidism GI Medical History: Denies: Crohn's Disease, Hepatitis, Ulcerative Colitis Musculoskeltal Medical History: Reports: Arthritis - mild Denies: Gout Skin Medical History: Denies: Eczema, Psoriasis Psychiatric Medical History: Reports: Depression Traumatic Medical History: Denies: Traumatic Brain Injury Hematology: Denies: Anemia, Sickle Cell Disease, Bleeding Tendencies Past Surgical History Past Surgical History: Reports: Other - Left orchiectomy in the remote past. Social/Family History - Social History Smoking Status: Current Every Day Smoker Cigarettes Packs Per Day: 1 Frequency of Alcohol Use: Heavy - Patient drinks 25 ounces of beer daily and has done so for the last year or so. He admits much heavier use of alcohol in the past as much as 25 ounces of hard liquor per day on his days off work. He decided to reduce his drinking after he was hospitalized with a posttraumatic pneumonia when he sustained rib fractures more than a year ago. Hx Recreational Drug Use: No Drugs: None Hx Prescription Drug Abuse: No - Medication/Allergies Home Medications: Aspirin [Aspirin EC] 81 mg PO DAILY 10/11/17 Atorvastatin Calcium [Lipitor 10 mg Tablet] 10 mg PO QHS 10/11/17 Budesonide/Formoterol Fumarate [Symbicort HFA 160-4.5 mcg Inhaler 6 gm] 2 puff IH Q12 09/08/18 Amiodarone HCl [Amiodarone HCl 400 mg Tablet] 200 mg PO Q12 #30 tablet 09/10/18 Hydrochlorothiazide [Hydrodiuril 25 mg Tablet] 25 mg PO QAM 06/16/20 Albuterol Sulfate [Albuterol Sulfate Hfa] 2 puff IH Q6HP PRN 07/27/20 Albuterol Sulfate [Ventolin 0.083% Neb 2.5 mg/3 mL Ampul] 1 vial IH Q8 07/27/20 Apixaban [Eliquis 5 mg Tablet] 5 mg PO Q12 07/27/20 Diltiazem HCl [Cartia Xt] 180 mg PO Q12 07/27/20 Escitalopram Oxalate [Lexapro 10 mg Tablet] 10 mg PO DAILY 07/27/20 Metoprolol Tartrate [Lopressor 50 mg Tablet] 50 mg PO Q12 07/27/20 Tiotropium [place] [Spiriva Respimat] 2 spray IH DAILY 07/27/20 Allergies/Adverse Reactions: chlorpheniramine [From Actifed Cold-Allergy] Allergy (Verified 07/27/20 14:13) phenylephrine [From Actifed Cold-Allergy] Allergy (Verified 07/27/20 14:13) pseudoephedrine [From Actifed Cold-Allergy] Allergy (Verified 07/27/20 14:13) triprolidine [From Actifed Cold-Allergy] Allergy (Verified 07/27/20 14:13) Review of Systems Cardiovascular: PRESENT: dyspnea on exertion, edema Respiratory: PRESENT: cough, dyspnea Gastrointestinal: PRESENT: as per HPI Physical Exam Vital Signs: Temp Pulse Resp BP Pulse Ox 98.2 F 63 15 130/85 H 92 07/27/20 23:46 07/27/20 23:56 07/28/20 00:01 07/27/20 22:02 07/28/20 00:01 Intake & Output 07/26/20 07/27/20 07/28/20 06:59 06:59 06:59 Intake Total 300 Output Total 0 Balance 300 Weight 119.5 kg Weight/Height Weight 119.5 kg Height 5 ft 8 in General appearance: PRESENT: cooperative, mild distress, obese Head exam: PRESENT: normocephalic Eye exam: PRESENT: PERRLA Ear exam: PRESENT: normal external ear exam Mouth exam: PRESENT: dry mucosa, tongue midline Neck exam: PRESENT: full ROM, JVD Respiratory exam: PRESENT: decreased breath sounds, symmetrical, tachypnea Cardiovascular exam: PRESENT: diastolic murmur, +S1, +S2 Pulses: PRESENT: normal carotid pulses Vascular exam: PRESENT: normal capillary refill GI/Abdominal exam: PRESENT: hypoactive bowel sounds, normal bowel sounds, soft Rectal exam: PRESENT: deferred Extremities exam: PRESENT: pedal edema, +1 edema Musculoskeletal exam: PRESENT: full ROM Neurological exam: PRESENT: alert, oriented to person, oriented to place, oriented to time Laboratory/Radiographs Laboratory Results: 07/27/20 14:55 07/27/20 14:55 07/27/20 07/27/20 07/27/20 14:55 14:55 17:49 WBC 15.1 H RBC 4.87 Hgb 17.1 H Hct 47.6 MCV 98 H MCH 35.1 H MCHC 35.8 RDW 13.2 Plt Count 233 Seg Neutrophils % 79.2 H Carbonic Acid 1.49 H HCO3/H2CO3 Ratio 20:1 ABG pH 7.41 ABG pCO2 49.5 H ABG pO2 69.2 L ABG HCO3 30.6 H ABG O2 Saturation 93.8 L ABG Base Excess 4.6 FiO2 80% Sodium 136.7 L Potassium 3.5 L Chloride 97 L Carbon Dioxide 30 Anion Gap 10 BUN 27 H Creatinine 1.18 Est GFR ( Amer) > 60 Glucose 117 H Calcium 9.0 Total Bilirubin 0.7 AST 53 Alkaline Phosphatase 123 Total Protein 6.7 Albumin 3.5 07/27/20 22:20 WBC RBC Hgb Hct MCV MCH MCHC RDW Plt Count Seg Neutrophils % Carbonic Acid 1.43 H HCO3/H2CO3 Ratio 21:1 ABG pH 7.43 ABG pCO2 47.6 H ABG pO2 70.8 L ABG HCO3 31.0 H ABG O2 Saturation 94.5 ABG Base Excess 5.3 FiO2 80% Sodium Potassium Chloride Carbon Dioxide Anion Gap BUN Creatinine Est GFR ( Amer) Glucose Calcium Total Bilirubin AST Alkaline Phosphatase Total Protein Albumin 07/27/20 07/27/20 14:55 14:55 Creatine Kinase 187 H Troponin I < 0.012 Impressions: Chest X-Ray 07/27/20 14:23 IMPRESSION: Obstructive lung disease Mid and lower lung alveolar and interstitial infiltrates, edema versus pneumonia All labs, radiographs, diagnostic studies and EKGs were personally reviewed: Yes In addition, reports of radiographic and diagnostic studies were read: Yes Critical Time Critical Time (minutes): 60 -: The care of a critically ill patient is dynamic. This note represents a static moment in the admission process. Orders and treatments may be given simult aneously and urgently, and time is not artists' booking representative of the treatment process. This patient requires Critical Care secondary to life threatening organ or limb dysfunction. Without Critical Care services, the patient is at risk for increased mortality and morbidity.
[2020-07-28] MEDS ORDERED: METHYLPREDNISOLONE INJ 40 MG/1 ML SDV IV SCH (02:00)
[2020-07-28] MEDS ORDERED: CEFEPIME 2 GM/D5W RTU 2 GM/50 ML RTUPB IV SCH ×2 (02:00→10:00)
[2020-07-28 04:06] LABS: ARTERIAL BLOOD BASE EXCESS 5.8 mmol/L; ARTERIAL BLOOD FIO2 80%; ARTERIAL BLOOD H2CO3 1.45 mmol/L (1.05-1.35); ARTERIAL BLOOD HCO3 31.4 mmol/L (20-24); ARTERIAL BLOOD O2 SATURATION 89.1 % (94-98); ARTERIAL BLOOD PCO2 48.1 mmHg (35-45); ARTERIAL BLOOD PH 7.43 (7.35-7.45); ARTERIAL BLOOD PO2 54.8 mmHg (80-100); ARTERIAL BLOOD TOTAL CO2 32.9 mmol/L (23-27)
[2020-07-28 04:29] LABS: HEMATOCRIT 50.3 % (37.9-51.0); HEMOGLOBIN 17.5 g/dL (13.5-17.0); MEAN CORPUSCULAR HEMOGLOBIN 34.2 pg (27.0-33.4); MEAN CORPUSCULAR HGB CONC 34.7 g/dL (32.0-36.0); MEAN CORPUSCULAR VOLUME 99 fl (80-97); PLATELET COUNT 219 10^3/uL (150-450); RED BLOOD COUNT 5.11 10^6/uL (4.35-5.55); RED CELL DISTRIBUTION WIDTH 13.5 % (11.5-14.0)
[2020-07-28 04:30] LABS: INTERNATIONAL RATION (INR) 1.14; PARTIAL THROMBOPLASTIN TIME 35.1 SEC (23.5-35.8); PROTHROMBIN TIME 14.8 SEC (11.4-15.4)
[2020-07-28 04:43] LABS: ALBUMIN 3.6 g/dL (3.5-5.0); ALKALINE PHOSPHATASE 107 U/L (38-126); AMYLASE 47 U/L (30-110); ANION GAP 10 (5-19); ASPARTATE AMINO TRANSFERASE 50 U/L (17-59); BILIRUBIN,DIRECT 0.4 mg/dL (0.0-0.4); BILIRUBIN,TOTAL 0.7 mg/dL (0.2-1.3); BLOOD UREA NITROGEN 26 mg/dL (7-20); CALCIUM 8.8 mg/dL (8.4-10.2); CARBON DIOXIDE 30 mmol/L (22-30); CHLORIDE 95 mmol/L (98-107); CHOLESTEROL 129.41 mg/dL (0-200); GLUCOSE 204 mg/dL (75-110); PHOSPHORUS 4.9 mg/dL (2.5-4.5); POTASSIUM 3.2 mmol/L (3.6-5.0); TOTAL PROTEIN 6.6 g/dL (6.3-8.2); TRIGLYCERIDES 69 mg/dL (<150)
[2020-07-28] MEDS: BUDESONIDE NEB 0.5 MG/2 ML AMPUL NEB SCH ×4 (04:50→20:46)
[2020-07-28 04:54] LABS: DIRECT LDL 84 mg/dL (<100); NT PRO BNP 185 pg/mL (<125)
[2020-07-28 05:02] LABS: TROPONIN I < 0.012 ng/mL
[2020-07-28 05:08] LABS: ABSOLUTE LYMPHOCYTES# (MANUAL) 0.8 10^3/uL (0.5-4.7); ABSOLUTE MONOCYTES # (MANUAL) 0.4 10^3/uL (0.1-1.4); BASOPHILS % (MANUAL) 0 % (0-2); EOSINOPHILS % (MANUAL) 0 % (0-6); LYMPHOCYTES % (MANUAL) 7 % (13-45); MONOCYTES % (MANUAL) 3 % (3-13); SEGMENTED NEUTROPHILS % (MAN) 90 % (42-78); TOTAL CELLS COUNTED 100
[2020-07-28 05:10] LABS: POLYCHROMASIA SLIGHT; TOXIC GRANULATION 1+
[2020-07-28 05:11] LABS: OVALOCYTES SLIGHT; PLATELET COMMENT ADEQUATE; POIKILOCYTOSIS SLIGHT; TEAR DROP CELLS SLIGHT
[2020-07-28 05:39] LABS: ARTERIAL BLOOD FIO2 80%; ARTERIAL BLOOD HCO3 30.5 mmol/L (20-24); ARTERIAL BLOOD O2 SATURATION 91.3 % (94-98); ARTERIAL BLOOD PCO2 43.1 mmHg (35-45); ARTERIAL BLOOD PH 7.47 (7.35-7.45); ARTERIAL BLOOD PO2 57.3 mmHg (80-100); ARTERIAL BLOOD TOTAL CO2 31.8 mmol/L (23-27)
[2020-07-28] MEDS ORDERED: POTASSI CL 20 MEQ/50 ML RIDER 20 MEQ/50 ML RTUPB IV ONE (06:29)
[2020-07-28] MEDS ORDERED: CEFEPIME HCL 1 GM in DEXTROSE 5%-WATER 50 ML IV SCH (08:18)
--- NOTE | 2020-07-28 08:46 | RADIOLOGY REPORT (SQ) ---
EXAM DESCRIPTION: CHEST SINGLE VIEW IMAGES COMPLETED DATE/TIME: 07/28/2020 6:06 am REASON FOR STUDY: BIPAP COMPARISON: CT chest 06/01/2019 Chest films 06/16/2020, 07/27/2020 EXAM PARAMETERS: NUMBER OF VIEWS: One view. TECHNIQUE: Single frontal radiographic view of the chest acquired. RADIATION DOSE: NA LIMITATIONS: None. FINDINGS: LUNGS AND PLEURA: Extensive changes of bilateral upper lobe obstructive lung disease. In the mid and lower lungs, there are crowded vascular markings with alveolar and interstitial infilt rates worrisome for either edema or pneumonia. This is similar compared to 07/27/2020 MEDIASTINUM AND HILAR STRUCTURES: No masses. Contour normal. HEART AND VASCULAR STRUCTURES: No cardiomegaly BONES: Old healed right rib fractures HARDWARE: None in the chest. OTHER: No other significant finding. IMPRESSION: Obstructive lung disease. Persistent patchy bibasilar alveolar and interstitial infiltrates, similar compared to yesterday TECHNICAL DOCUMENTATION: JOB ID: [id number] 2010 [employer]- All Rights Reserved Reading location - IP/workstation name: [email or web address]
[2020-07-28] MEDS: APIXABAN 5 MG TABLET PO SCH ×2 (09:21→22:41)
[2020-07-28] MEDS: FUROSEMIDE INJ/PF 40 MG/4 ML SDV IV SCH (09:21)
[2020-07-28] MEDS: METOPROLOL TARTRATE 50 MG TABLET PO SCH ×2 (09:22→22:40)
[2020-07-28] MEDS: DOCUSATE SODIUM 100 MG CAPSULE PO SCH (09:22)
[2020-07-28] MEDS: FAMOTIDINE 20 MG TABLET PO SCH ×2 (09:22→22:40)
[2020-07-28] MEDS: AMIODARONE HCL 200 MG TABLET PO SCH ×2 (09:22→22:40)
[2020-07-28] MEDS: ASPIRIN 81 MG TABLET, ENT COATED PO SCH (09:22)
[2020-07-28] MEDS: CEFEPIME 1 GM/D5W RTU 1 GM/50 ML RTUPB IV SCH ×3 (09:33→22:41)
[2020-07-28] MEDS ORDERED: AZITHROMYCIN INJ 500 MG VIAL IV SCH (10:00)
[2020-07-28] MEDS ORDERED: CEFEPIME HCL 2 GM in DEXTROSE 5%-WATER 50 ML IV SCH (10:00)
[2020-07-28] MEDS ORDERED: ENOXAPARIN SODIUM INJ 40 MG/0.4 ML DISP.SYRIN SUBCUT SCH ×2 (10:00)
[2020-07-28 10:14] LABS: ARTERIAL BLOOD BASE EXCESS 4.8 mmol/L; ARTERIAL BLOOD FIO2 90%; ARTERIAL BLOOD H2CO3 1.49 mmol/L (1.05-1.35); ARTERIAL BLOOD HCO3 30.9 mmol/L (20-24); ARTERIAL BLOOD O2 SATURATION 93.3 % (94-98); ARTERIAL BLOOD PCO2 49.6 mmHg (35-45); ARTERIAL BLOOD PH 7.41 (7.35-7.45); ARTERIAL BLOOD PO2 66.9 mmHg (80-100); ARTERIAL BLOOD TOTAL CO2 32.4 mmol/L (23-27)
[2020-07-28] MEDS: AZITHROMYCIN 500 MG in DEXTROSE 5%-WATER 250 ML IV SCH (11:03)
[2020-07-28] MEDS ORDERED: POTASSIUM CHLORIDE 20 MEQ PACKET PO ONE (12:00)
[2020-07-28] MEDS: METHYLPREDNISOLONE INJ 125 MG/2 ML SDV IV SCH (13:08)
--- NOTE | 2020-07-28 18:08 | EKG REPORT ---
SEVERITY:- ABNORMAL ECG - SINUS RHYTHM IVCD : Confirmed by: Jonnie Johnson MD 28-Jul-2020 18:07:54
--- NOTE | 2020-07-28 19:37 | XCELERA REPORT ---
[address] [address] Transthoracic Echocardiogram Report Name: MOHSEN EDGE Age: 55 yrs Gender: Male : 1965 Patient Status: Inpatient Patient Location: ICU^601^A Study Date: 07/28/2020 09:55 AM Height: 68 in Weight: 263 lb BSA: 2.3 m2 Procedure: A complete two-dimensional transthoracic echocardiogram was performed (2D, M-mode, spectral and color flow Doppler). Study Quality: Poor. Poor parasternal long axis, apical, subcostal and 2-chamber views. Suboptimal 4-chamber views. Reason For Study: CHF Ordering Physician: NATALY BARRAGAN Performed By: Day Becerra Interpretation Summary Poor quality study. Poor parasternal long axis, apical, subcostal and 2-chamber views. Suboptimal 4-chamber views. The left ventricle is grossly normal size. Left ventricular systolic function is normal. The Ejection Fraction estimate is 65-70%. Doppler measurements suggest impaired left ventricular relaxation, which is associated with grade I/IV or mild diastolic dysfunction. Regional wall motion abnormalities cannot be excluded due to limited visualization. Cannot comment on atrial abnormalities due to poor visualization. Cannot comment on valvular pathology due to poor visualization. Trace, hemodynamically insignificant anterior and anteroapical pericardial effusion. MMode/2D Measurements & Calculations RVDd: 2.2 cm LVIDd: 4.2 cm FS: 30.7 % Ao root diam: 2.4 cm IVSd: 1.0 cm LVIDs: 2.9 cm EDV(Teich): 77.7 ml Ao root area: 4.6 cm2 LVPWd: 0.97 cm ESV(Teich): 32.1 ml EF(Teich): 58.7 % Doppler Measurements & Calculations MV E max damián: MV dec slope: Ao V2 max: LV V1 max P.2 cm/sec 244.0 cm/sec2 110.2 cm/sec 3.5 mmHg MV A max damián: MV dec time: 0.27 secAo max PG: LV V1 max: 71.9 cm/sec 4.9 mmHg 93.2 cm/sec MV E/A: 0.91 PA V2 max: TR max dmaián: 84.4 cm/sec 165.5 cm/sec PA max P.8 mmHg TR max P.0 mmHg Left Ventricle The left ventricle is grossly normal size. Left ventricular systolic function is normal. The Ejection Fraction estimate is 65-70%. Doppler measurements suggest impaired left ventricular relaxation, which is associated with grade I/IV or mild diastolic dysfunction. Regional wall motion abnormalities cannot be excluded due to limited visualization. Right Ventricle The right ventricle is grossly normal size. The right ventricular systolic function is normal. Atria Right atrium not well visualized secondary to technical limitations. The left atrium is not well visualized secondary to technical limitations. Interarterial septum not well visualized and not well dopplered. Cannot comment on ASD/PFO presence. Mitral Valve The mitral valve is not well visualized. Evaluation of regurgitation is inadequate. Aortic Valve The aortic valve is not well visualized secondary to technical limitations. Suboptimal Doppler interrogation of the valve, cannot comment on aortic stenosis. Cannot comment on regurgitation due to the poor quality of the study. Tricuspid Valve The tricuspid valve is not well visualized secondary to technical limitations. Cannot comment on regurgitation due to the poor quality of the study. Pulmonic Valve The pulmonic valve is not well visualized. Effusions Trace, hemodynamically insignificant anterior and anteroapical pericardial effusion. : NATALY BARRAGAN, Sandip
[2020-07-28 20:51] LABS: C-REACTIVE PROTEIN 161.2 mg/L (<10.0)
[2020-07-28] MEDS: ATORVASTATIN CALCIUM 10 MG TABLET PO SCH (22:40)
[2020-07-29] MEDS: BUDESONIDE NEB 0.5 MG/2 ML AMPUL NEB SCH ×4 (02:22→19:51)
[2020-07-29] MEDS: ALBUTEROL SULFATE 0.083% NEB 2.5 MG/3 ML AMPUL NEB SCH ×2 (02:22→08:08)
[2020-07-29] MEDS: IPRATROPIUM/ALBUTEROL 0.5-2.5 MG/3 ML AMPUL NEB SCH ×4 (02:23→19:51)
[2020-07-29 04:31] LABS: ANION GAP 10 (5-19); BLOOD UREA NITROGEN 36 mg/dL (7-20); CALCIUM 9.1 mg/dL (8.4-10.2); CARBON DIOXIDE 32 mmol/L (22-30); CHLORIDE 97 mmol/L (98-107); GLUCOSE 191 mg/dL (75-110); POTASSIUM 3.5 mmol/L (3.6-5.0)
[2020-07-29 06:53] LABS: HEMATOCRIT 48.9 % (37.9-51.0); HEMOGLOBIN 16.9 g/dL (13.5-17.0); MEAN CORPUSCULAR HEMOGLOBIN 34.1 pg (27.0-33.4); MEAN CORPUSCULAR HGB CONC 34.6 g/dL (32.0-36.0); MEAN CORPUSCULAR VOLUME 99 fl (80-97); PLATELET COUNT 277 10^3/uL (150-450); RED BLOOD COUNT 4.96 10^6/uL (4.35-5.55); RED CELL DISTRIBUTION WIDTH 13.3 % (11.5-14.0); WHITE BLOOD COUNT 21.7 10^3/uL (4.0-10.5)
[2020-07-29] MEDS: AMIODARONE HCL 200 MG TABLET PO SCH ×2 (11:42→22:32)
[2020-07-29] MEDS: ASPIRIN 81 MG TABLET, ENT COATED PO SCH (11:42)
[2020-07-29] MEDS: APIXABAN 5 MG TABLET PO SCH ×2 (11:42→22:30)
[2020-07-29] MEDS: FAMOTIDINE 20 MG TABLET PO SCH ×2 (11:42→22:30)
[2020-07-29] MEDS: METOPROLOL TARTRATE 50 MG TABLET PO SCH ×2 (11:42→22:31)
[2020-07-29] MEDS: DOCUSATE SODIUM 100 MG CAPSULE PO SCH (11:42)
[2020-07-29] MEDS: CEFEPIME 1 GM/D5W RTU 1 GM/50 ML RTUPB IV SCH ×2 (11:43→22:30)
[2020-07-29] MEDS ORDERED: ALBUTEROL SULFATE 0.083% NEB 2.5 MG/3 ML AMPUL NEB PRN (12:13)
[2020-07-29] MEDS: FUROSEMIDE INJ/PF 40 MG/4 ML SDV IV SCH (12:25)
[2020-07-29] MEDS ORDERED: POTASSIUM CHLORIDE 10 MEQ TABLET.ER PO ONE ×2 (14:10→18:00)
[2020-07-29] MEDS: METHYLPREDNISOLONE INJ 125 MG/2 ML SDV IV SCH (14:20)
[2020-07-29] MEDS: AZITHROMYCIN 500 MG in DEXTROSE 5%-WATER 250 ML IV SCH (14:20)
--- NOTE | 2020-07-29 18:42 | PDOC CRITICAL CARE PROG REPORT ---
General Date:: 07/29/20 ICU Day:: 2 Hospital Day:: 2 Resuscitation Status: Full Code Events in the past 12 to 24 Hours:: This 55-year-old male smoker presented to [facility] emergency department on 07/27/2020 with increasing shortness of breath and increasing oxygen requirement. He was initially admitted to the hospitalist service; however, we were contacted by Dr. Box with the request to admit to the ICU, when the patient was assessed to be BiPAP dependent with an FiO2 of 80%. 07/29: The patient has had a positive response to diuresis. He did not require BiPAP therapy; however, he did benefit from CPAP treatment yesterday. He was able to tolerate CPAP 8, FiO2 90% and eventually weaned down to high flow nasal cannula. During the evening, his obstructive sleep apnea was "rediagnosed", at which time he was placed back on CPAP therapy. He is back on high flow nasal cannula this morning. WBC 21.7 today, on steroids. Awake, alert, oriented x3. In good spirits. Review of systems relevant to events:: Respiratory: Dyspnea Cardiovascular: Lower extremity edema Reason for ICU Addmission:: COPD exacerbation, CHF - Medications: Medications reviewed and adjusted accordingly: Yes Physical Exam Vital Signs: Temp Pulse Resp BP Pulse Ox 97.2 F 72 20 127/75 H 92 07/29/20 07:51 07/29/20 09:48 07/29/20 10:44 07/29/20 10:03 07/29/20 10:44 Intake & Output 07/28/20 07/29/20 07/30/20 06:59 06:59 06:59 Intake Total 350 350 250 Output Total 1480 1690 200 Balance -1130 -1340 50 Weight 119.5 kg 117.5 kg Weight/Height Weight 117.5 kg Height 1.73 m General appearance: PRESENT: no acute distress, well-developed, well-nourished Head exam: PRESENT: atraumatic, normocephalic Eye exam: PRESENT: conjunctiva pink, EOMI, PERRLA. ABSENT: scleral icterus Mouth exam: PRESENT: moist, tongue midline Neck exam: ABSENT: carotid bruit, JVD, lymphadenopathy, thyromegaly Respiratory exam: PRESENT: crackles, rales. ABSENT: accessory muscle use, rhonchi, wheezes Cardiovascular exam: PRESENT: RRR. ABSENT: diastolic murmur, rubs, systolic murmur Pulses: PRESENT: normal dorsalis pedis pul GI/Abdominal exam: PRESENT: normal bowel sounds, soft. ABSENT: distended, guarding, mass, organolmegaly, rebound, tenderness Extremities exam: PRESENT: full ROM, pedal edema. ABSENT: calf tenderness, clubbing Musculoskeletal exam: PRESENT: normal inspection. ABSENT: deformity Neurological exam: PRESENT: alert, awake, oriented to person, oriented to place, oriented to time, oriented to situation, CN II-XII grossly intact. ABSENT: motor sensory deficit Psychiatric exam: ABSENT: agitated, anxious Skin exam: PRESENT: dry, intact, warm. ABSENT: cyanosis, rash Laboratory/Radiographs Laboratory Results: 07/29/20 03:40 07/29/20 03:40 07/28/20 07/29/20 07/29/20 19:20 03:40 03:40 WBC 21.7 H RBC 4.96 Hgb 16.9 Hct 48.9 MCV 99 H MCH 34.1 H MCHC 34.6 RDW 13.3 Plt Count 277 Sodium 139.1 Potassium 3.5 L Chloride 97 L Carbon Dioxide 32 H Anion Gap 10 BUN 36 H Creatinine 0.89 Est GFR ( Amer) > 60 Glucose 191 H Calcium 9.1 Magnesium 2.5 H Ferritin 437.00 C-Reactive Protein 161.2 H 07/27/20 21:47 Blood Blood Culture (PCR) - Final Staphylococcus Species 07/27/20 07/27/20 07/28/20 14:55 14:55 03:42 Creatine Kinase 187 H Troponin I < 0.012 < 0.012 NT-Pro-B Natriuret Pep 185 H Impressions: Chest X-Ray 07/28/20 04:00 IMPRESSION: Obstructive lung disease. Persistent patchy bibasilar alveolar and interstitial infiltrates, similar compared to yesterday All labs, radiographs, diagnostic studies and EKGs were personally reviewed: Yes In addition, reports of radiographic and diagnostic studies were read: Yes Assessment and Plan - Diagnosis (1) Acute and chronic respiratory failure ([id number]) Qualifiers: Respiratory failure complication: hypoxia Qualified Code(s): J96.21 - Acute and chronic respiratory failure with hypoxia Is this a current diagnosis for this admission?: Yes Plan: * Continue high flow nasal cannula during the day. Maintain FiO2 100%. Wean flow rate as tolerated. * CPAP 8 nightly. Titrate FiO2 to maintain SPO2 89-93%. * Continue steroids. (2) Pneumonia Qualifiers: Pneumonia type: due to unspecified organism Laterality: right Lung location: lower lobe of lung Qualified Code(s): J18.9 - Pneumonia, unspecified organism Is this a current diagnosis for this admission?: Yes Plan: * Change cefepime to Rocephin. Should be able to change to p.o. Ceftin t omorrow. * Continue Zithromax. (3) Paroxysmal atrial fibrillation Is this a current diagnosis for this admission?: Yes Plan: Continue Eliquis (4) Bullous emphysema Is this a current diagnosis for this admission?: Yes Plan: DuoNeb/budesonide scheduled. (5) Cigarette smoker Is this a current diagnosis for this admission?: Yes Plan: Smoking cessation counseling provided. Critical Time Critical Time (minutes): 60 Level of Care: ICU -: 1. The care of a critical patient is a dynamic process. This note is a premium representative synopsis but static in nature. The timeframe for treatments given in order is not necessarily the actual time these treatments may have been done. 2. This patient requires critical care secondary to ongoing requirements for therapy not offered or safe outside the critical care environment. Transfer to a lower level of care will result in altered life or limb morbidity and mortality. 3. Multidisciplinary rounds completed. 4. ABCDE bundle addressed.
[2020-07-29 20:47] LABS: C DIFFICILE GDH POSITIVE (NEGATIVE)
[2020-07-29] MEDS: ATORVASTATIN CALCIUM 10 MG TABLET PO SCH (22:31)
[2020-07-30] MEDS: BUDESONIDE NEB 0.5 MG/2 ML AMPUL NEB SCH ×4 (01:50→20:57)
[2020-07-30] MEDS: IPRATROPIUM/ALBUTEROL 0.5-2.5 MG/3 ML AMPUL NEB SCH ×4 (01:50→20:57)
[2020-07-30 05:53] LABS: ANION GAP 8 (5-19); BLOOD UREA NITROGEN 43 mg/dL (7-20); CALCIUM 9.2 mg/dL (8.4-10.2); CARBON DIOXIDE 35 mmol/L (22-30); CHLORIDE 96 mmol/L (98-107); GLUCOSE 192 mg/dL (75-110); POTASSIUM 4.5 mmol/L (3.6-5.0)
[2020-07-30] MEDS: VANCOMYCIN HCL INJ 500 MG VIAL PO SCH ×5 (06:32→23:00)
[2020-07-30 08:37] LABS: HEMATOCRIT 50.5 % (37.9-51.0); HEMOGLOBIN 17.1 g/dL (13.5-17.0); MEAN CORPUSCULAR HEMOGLOBIN 33.8 pg (27.0-33.4); MEAN CORPUSCULAR HGB CONC 33.9 g/dL (32.0-36.0); MEAN CORPUSCULAR VOLUME 100 fl (80-97); RED BLOOD COUNT 5.07 10^6/uL (4.35-5.55); RED CELL DISTRIBUTION WIDTH 13.3 % (11.5-14.0); WHITE BLOOD COUNT 21.6 10^3/uL (4.0-10.5)
[2020-07-30 08:57] LABS: PLATELET COUNT 309 10^3/uL (150-450)
[2020-07-30] MEDS: ASPIRIN 81 MG TABLET, ENT COATED PO SCH (09:24)
[2020-07-30] MEDS: FAMOTIDINE 20 MG TABLET PO SCH ×2 (09:24→22:50)
[2020-07-30] MEDS: APIXABAN 5 MG TABLET PO SCH ×2 (09:24→22:50)
[2020-07-30] MEDS: METOPROLOL TARTRATE 50 MG TABLET PO SCH ×2 (09:24→22:50)
[2020-07-30] MEDS: DOCUSATE SODIUM 100 MG CAPSULE PO SCH (09:26)
[2020-07-30] MEDS: FUROSEMIDE INJ/PF 40 MG/4 ML SDV IV SCH (09:26)
[2020-07-30] MEDS: AMIODARONE HCL 200 MG TABLET PO SCH ×2 (09:26→22:50)
--- NOTE | 2020-07-30 09:26 | RADIOLOGY REPORT (SQ) ---
EXAM DESCRIPTION: CHEST SINGLE VIEW IMAGES COMPLETED DATE/TIME: 07/30/2020 5:59 am REASON FOR STUDY: dyspnea COMPARISON: 07/28/2020 EXAM PARAMETERS: NUMBER OF VIEWS: One view. TECHNIQUE: Single frontal radiographic view of the chest acquired. RADIATION DOSE: NA LIMITATIONS: None. FINDINGS: LUNGS AND PLEURA: Marked bullous emphysema of the left upper lobe particular. Compressive atelectasis at the bases. No change from previous. No obvious pneumothorax. MEDIASTINUM AND HILAR STRUCTURES: No masses. Contour normal. HEART AND VASCULAR STRUCTURES: Heart normal in size. Normal vasculature. BONES: Multiple old rib fractures. HARDWARE: None in the chest. OTHER: No other significant finding. IMPRESSION: Severe bullous emphysema in the left lung with compressive atelectasis at the bases. No change. TECHNICAL DOCUMENTATION: JOB ID: [id number] 2010 [employer]- All Rights Reserved Reading location - IP/workstation name: [email or web address]
[2020-07-30] MEDS: METHYLPREDNISOLONE INJ 125 MG/2 ML SDV IV SCH ×2 (09:27→22:49)
[2020-07-30] MEDS: CEFEPIME 1 GM/D5W RTU 1 GM/50 ML RTUPB IV SCH ×2 (09:33→22:48)
[2020-07-30] MEDS: AZITHROMYCIN 500 MG in DEXTROSE 5%-WATER 250 ML IV SCH (11:12)
--- NOTE | 2020-07-30 17:10 | PDOC CRITICAL CARE PROG REPORT ---
General Date:: 07/30/20 ICU Day:: 3 Hospital Day:: 3 Resuscitation Status: Full Code Events in the past 12 to 24 Hours:: This 55-year-old male smoker presented to [facility] emergency department on 07/27/2020 with increasing shortness of breath and increasing oxygen requirement. He was initially admitted to the hospitalist service; however, we were contacted by Dr. Box with the request to admit to the ICU, when the patient was assessed to be BiPAP dependent with an FiO2 of 80%. 07/29: The patient has had a positive response to diuresis. He did not require BiPAP therapy; however, he did benefit from CPAP treatment yesterday. He was able to tolerate CPAP 8, FiO2 90% and eventually weaned down to high flow nasal cannula. During the evening, his obstructive sleep apnea was "rediagnosed", at which time he was placed back on CPAP therapy. He is back on high flow nasal cannula this morning. WBC 21.7 today, on steroids. Awake, alert, oriented x3. In good spirits. 07/30: Slept on CPAP overnight. The patient had 2 episodes of diarrhea yesterday. C. difficile was checked and found to be positive. Started on p.o. vancomycin. Back on high flow nasal cannula during awake hours. Chest x-ray shows no significant change. Monitor shows sinus bradycardia, heart rate 55. Review of systems relevant to events:: Respiratory: Dyspnea Cardiovascular: Lower extremity edema Reason for ICU Addmission:: COPD exacerbation, CHF - Medications: Medications reviewed and adjusted accordingly: Yes Physical Exam Vital Signs: Temp Pulse Resp BP Pulse Ox 97.9 F 50 L 15 145/81 H 96 07/30/20 08:00 07/30/20 08:00 07/30/20 08:00 07/30/20 08:00 07/30/20 08:00 Intake & Output 07/29/20 07/30/20 07/31/20 06:59 06:59 06:59 Intake Total 350 1100 Output Total 1690 2004 200 Balance -1340 -905 -200 Weight 117.5 kg 117.6 kg Weight/Height Weight 117.6 kg Height 1.73 m General appearance: PRESENT: no acute distress, well-developed, well-nourished Head exam: PRESENT: atraumatic, normocephalic Eye exam: PRESENT: conjunctiva pink, EOMI, PERRLA. ABSENT: scleral icterus Mouth exam: PRESENT: moist, tongue midline Neck exam: ABSENT: carotid bruit, JVD, lymphadenopathy, thyromegaly Respiratory exam: PRESENT: crackles, decreased breath sounds, prolonged expirato ry phas, symmetrical, unlabored, wheezes. ABSENT: rhonchi, tachypnea Cardiovascular exam: PRESENT: bradycardia, RRR. ABSENT: diastolic murmur, rubs, systolic murmur Pulses: PRESENT: normal dorsalis pedis pul GI/Abdominal exam: PRESENT: normal bowel sounds, soft. ABSENT: distended, guarding, mass, organolmegaly, rebound, tenderness Extremities exam: PRESENT: full ROM, pedal edema. ABSENT: calf tenderness, clubbing Musculoskeletal exam: PRESENT: normal inspection. ABSENT: deformity Neurological exam: PRESENT: alert, awake, oriented to person, oriented to place, oriented to time, oriented to situation, CN II-XII grossly intact. ABSENT: mot or sensory deficit Psychiatric exam: ABSENT: agitated, anxious Skin exam: PRESENT: dry, intact, warm. ABSENT: cyanosis, rash Laboratory/Radiographs Laboratory Results: 07/30/20 05:10 07/30/20 05:10 07/29/20 07/30/20 07/30/20 14:30 05:10 05:10 WBC 21.6 H RBC 5.07 Hgb 17.1 H Hct 50.5 MCV 100 H MCH 33.8 H MCHC 33.9 RDW 13.3 Plt Count 309 Sodium 139.2 Potassium 4.5 Chloride 96 L Carbon Dioxide 35 H Anion Gap 8 BUN 43 H Creatinine 1.14 Est GFR ( Amer) > 60 Glucose 192 H Calcium 9.2 Magnesium 2.8 H Stl C.difficile Tox PCR POSITIVE 07/27/20 21:47 Blood Blood Culture (PCR) - Final Staphylococcus Species 07/27/20 07/27/20 07/28/20 14:55 14:55 03:42 Creatine Kinase 187 H Troponin I < 0.012 < 0.012 NT-Pro-B Natriuret Pep 185 H Impressions: Chest X-Ray 07/30/20 05:00 IMPRESSION: Severe bullous emphysema in the left lung with compressive atelectasis at the bases. No change. All labs, radiographs, diagnostic studies and EKGs were personally reviewed: Yes In addition, reports of radiographic and diagnostic studies were read: Yes Assessment and Plan - Diagnosis (1) Acute and chronic respiratory failure ([id number]) Qualifiers: Respiratory failure complication: hypoxia Qualified Code(s): J96.21 - Acute and chronic respiratory failure with hypoxia Is this a current diagnosis for this admission?: Yes Plan: * Continue high flow nasal cannula during the day. Maintain FiO2 100%. Wean flow rate as tolerated. * CPAP 8 nightly. Titrate FiO2 to maintain SPO2 89-93%. * Continue steroids. * Diurese today. (2) Paroxysmal atrial fibrillation Is this a current diagnosis for this admission?: Yes Plan: * Continue Eliquis. * On (home med) amiodarone. (3) Bullous emphysema Is this a current diagnosis for this admission?: Yes Plan: DuoNeb/budesonide scheduled. (4) C. difficile diarrhea Is this a current diagnosis for this admission?: Yes Plan: On vancomycin 125 mg p.o. every 6 hours. (5) Pneumonia Qualifiers: Pneumonia type: due to unspecified organism Laterality: right Lung location: lower lobe of lung Qualified Code(s): J18.9 - Pneumonia, unspecified organism Is this a current diagnosis for this admission?: Yes Plan: * On Rocephin/Zithromax. We will stop after 5-day course in the absence of compelling indication to continue antibiotic therapy. * Trach aspirate isolated in normal respiratory macrina. * CBC in a.m. . (6) Cigarette smoker Is this a current diagnosis for this admission?: Yes Critical Time Critical Time (minutes): 60 Level of Care: ICU -: 1. The care of a critical patient is a dynamic process. This note is a patient support representative synopsis but static in nature. The timeframe for treatments given in order is not necessarily the actual time these treatments may have been done. 2. This patient requires critical care secondary to ongoing requirements for therapy not offered or safe outside the critical care environment. Transfer to a lower level of care will result in altered life or limb morbidity and mortality. 3. Multidisciplinary rounds completed. 4. ABCDE bundle addressed.
[2020-07-30] MEDS ORDERED: FUROSEMIDE INJ/PF 40 MG/4 ML SDV IV ONE (17:45)
[2020-07-30] MEDS ORDERED: ESCITALOPRAM OXALATE 10 MG TABLET PO ONE (17:45)
[2020-07-30] MEDS: ATORVASTATIN CALCIUM 10 MG TABLET PO SCH (22:50)
[2020-07-31] MEDS: BUDESONIDE NEB 0.5 MG/2 ML AMPUL NEB SCH ×4 (02:31→20:24)
[2020-07-31] MEDS: IPRATROPIUM/ALBUTEROL 0.5-2.5 MG/3 ML AMPUL NEB SCH ×4 (02:31→20:25)
[2020-07-31 05:17] LABS: ANION GAP 7 (5-19); BLOOD UREA NITROGEN 45 mg/dL (7-20); CALCIUM 9.2 mg/dL (8.4-10.2); CARBON DIOXIDE 37 mmol/L (22-30); CHLORIDE 94 mmol/L (98-107); GLUCOSE 228 mg/dL (75-110); POTASSIUM 4.9 mmol/L (3.6-5.0)
[2020-07-31 07:12] LABS: HEMATOCRIT 50.1 % (37.9-51.0); HEMOGLOBIN 17.1 g/dL (13.5-17.0); MEAN CORPUSCULAR HGB CONC 34.1 g/dL (32.0-36.0); MEAN CORPUSCULAR VOLUME 99 fl (80-97); PLATELET COUNT 297 10^3/uL (150-450); RED BLOOD COUNT 5.04 10^6/uL (4.35-5.55); RED CELL DISTRIBUTION WIDTH 13.6 % (11.5-14.0); WHITE BLOOD COUNT 19.7 10^3/uL (4.0-10.5)
[2020-07-31] MEDS: VANCOMYCIN HCL INJ 500 MG VIAL PO SCH ×4 (08:17→17:56)
[2020-07-31 08:31] LABS: ABSOLUTE LYMPHOCYTES# (MANUAL) 1.2 10^3/uL (0.5-4.7); BASOPHILS % (MANUAL) 0 % (0-2); EOSINOPHILS % (MANUAL) 0 % (0-6); LYMPHOCYTES % (MANUAL) 6 % (13-45); MONOCYTES % (MANUAL) 5 % (3-13); SEGMENTED NEUTROPHILS % (MAN) 89 % (42-78); TOTAL CELLS COUNTED 100
[2020-07-31 08:32] LABS: PLATELET COMMENT ADEQUATE
[2020-07-31] MEDS: CEFEPIME 1 GM/D5W RTU 1 GM/50 ML RTUPB IV SCH ×2 (09:32→22:24)
[2020-07-31] MEDS: AMIODARONE HCL 200 MG TABLET PO SCH ×2 (09:39→22:23)
[2020-07-31] MEDS: ASPIRIN 81 MG TABLET, ENT COATED PO SCH (09:39)
[2020-07-31] MEDS: METOPROLOL TARTRATE 50 MG TABLET PO SCH ×2 (09:39→22:25)
[2020-07-31] MEDS: ESCITALOPRAM OXALATE 10 MG TABLET PO SCH (09:40)
[2020-07-31] MEDS: METHYLPREDNISOLONE INJ 125 MG/2 ML SDV IV SCH ×2 (09:40→22:25)
[2020-07-31] MEDS: APIXABAN 5 MG TABLET PO SCH ×2 (09:40→22:23)
[2020-07-31] MEDS: FUROSEMIDE INJ/PF 40 MG/4 ML SDV IV SCH (09:40)
[2020-07-31] MEDS: FAMOTIDINE 20 MG TABLET PO SCH ×2 (09:40→22:24)
[2020-07-31] MEDS: DOCUSATE SODIUM 100 MG CAPSULE PO SCH (11:39)
[2020-07-31] MEDS: AZITHROMYCIN 500 MG in DEXTROSE 5%-WATER 250 ML IV SCH (12:08)
[2020-07-31 12:24] LABS: ARTERIAL BLOOD H2CO3 1.47 mmol/L (1.05-1.35); ARTERIAL BLOOD HCO3 33.7 mmol/L (20-24); ARTERIAL BLOOD O2 SATURATION 82.5 % (94-98); ARTERIAL BLOOD PH 7.46 (7.35-7.45); ARTERIAL BLOOD PO2 44.8 mmHg (80-100); ARTERIAL BLOOD TOTAL CO2 35.2 mmol/L (23-27)
[2020-07-31 12:27] LABS: ARTERIAL BLOOD FIO2 100%
[2020-07-31] MEDS: CLOBETASOL PROPIONATE 0.05% OINTMENT 15 GM TP SCH (14:45)
[2020-07-31] MEDS ORDERED: FUROSEMIDE INJ/PF 40 MG/4 ML SDV IV ONE (17:00)
--- NOTE | 2020-07-31 19:32 | PDOC CRITICAL CARE PROG REPORT ---
General Date:: 07/31/20 ICU Day:: 4 Hospital Day:: 4 Resuscitation Status: Full Code Events in the past 12 to 24 Hours:: This 55-year-old male smoker presented to [facility] emergency department on 07/27/2020 with increasing shortness of breath and increasing oxygen requirement. He was initially admitted to the hospitalist service; however, we were contacted by Dr. Box with the request to admit to the ICU, when the patient was assessed to be BiPAP dependent with an FiO2 of 80%. 07/29: The patient has had a positive response to diuresis. He did not require BiPAP therapy; however, he did benefit from CPAP treatment yesterday. He was able to tolerate CPAP 8, FiO2 90% and eventually weaned down to high flow nasal cannula. During the evening, his obstructive sleep apnea was "rediagnosed", at which time he was placed back on CPAP therapy. He is back on high flow nasal cannula this morning. WBC 21.7 today, on steroids. Awake, alert, oriented x3. In good spirits. 07/30: Slept on CPAP overnight. The patient had 2 episodes of diarrhea yesterday. C. difficile was checked and found to be positive. Started on p.o. vancomycin. Back on high flow nasal cannula during awake hours. Chest x-ray shows no significant change. Monitor shows sinus bradycardia, heart rate 55. 07/31: Slept with CPAP overnight. Apparently, FiO2 titration has not been performed. At the bedside, FiO2 titrated down to 50%. The patient is tolerating p.o. vancomycin for C. difficile associated diarrhea. Back on high flow nasal cannula during awake hours -17.5 LPM, FiO2 100%. Sputum culture (07/28) isolated normal macrina and yeast (not Janessa albicans). Blood cultures (07/27) isolated gram-positive cocci in clusters and gram-positive rods in 1 of 2 bottles. Review of systems relevant to events:: Respiratory: Dyspnea Cardiovascular: Lower extremity edema Reason for ICU Addmission:: COPD exacerbation, CHF - Medications: Medications reviewed and adjusted accordingly: Yes Physical Exam Vital Signs: Temp Pulse Resp BP Pulse Ox 98.2 F 82 18 169/81 H 89 L 07/31/20 10:00 07/31/20 07:55 07/31/20 10:36 07/31/20 10:36 07/31/20 10:36 Intake & Output 07/30/20 07/31/20 08/01/20 06:59 06:59 06:59 Intake Total 1100 350 400 Output Total 20048 825 Balance -905 -1723 150 Weight 117.6 kg 119.1 kg Weight/Height Weight 119.1 kg Height 1.73 m General appearance: PRESENT: no acute distress, well-developed, well-nourished Head exam: PRESENT: atraumatic, normocephalic Mouth exam: PRESENT: moist, tongue midline Respiratory exam: PRESENT: crackles, decreased breath sounds, prolonged expir atory phas, symmetrical, unlabored, wheezes. ABSENT: rales, rhonchi Cardiovascular exam: PRESENT: bradycardia, RRR. ABSENT: diastolic murmur, rubs, systolic murmur Pulses: PRESENT: normal dorsalis pedis pul GI/Abdominal exam: PRESENT: normal bowel sounds, soft. ABSENT: distended, guarding, mass, organolmegaly, rebound, tenderness Extremities exam: PRESENT: full ROM, pedal edema. ABSENT: calf tenderness, clubbing Musculoskeletal exam: PRESENT: normal inspection. ABSENT: deformity Neurological exam: PRESENT: alert, awake, oriented to person, oriented to place, oriented to time, oriented to situation, CN II-XII grossly intact. ABSENT: mable r sensory deficit Psychiatric exam: ABSENT: agitated, anxious Skin exam: PRESENT: dry, intact, warm. ABSENT: cyanosis, rash Laboratory/Radiographs Laboratory Results: 07/31/20 04:28 07/31/20 04:28 07/31/20 07/31/20 04:28 04:28 WBC 19.7 H RBC 5.04 Hgb 17.1 H Hct 50.1 MCV 99 H MCH 34.0 H MCHC 34.1 RDW 13.6 Plt Count 297 Seg Neutrophils % Not Reportable Sodium 137.5 Potassium 4.9 Chloride 94 L Carbon Dioxide 37 H Anion Gap 7 BUN 45 H Creatinine 1.12 Est GFR ( Amer) > 60 Glucose 228 H Calcium 9.2 Magnesium 2.8 H 07/27/20 21:47 Blood Blood Culture (PCR) - Final Staphylococcus Species 07/28/20 13:10 Sputum Gram Stain - Final 07/28/20 13:10 Sputum Sputum Culture - Final Yeast, Not Janessa Albicans Normal Macrina 11/01/1007/27/20 07/28/20 14:55 14:55 03:42 Creatine Kinase 187 H Troponin I < 0.012 < 0.012 NT-Pro-B Natriuret Pep 185 H Impressions: Chest X-Ray 07/30/20 05:00 IMPRESSION: Severe bullous emphysema in the left lung with compressive atelectasis at the bases. No change. All labs, radiographs, diagnostic studies and EKGs were personally reviewed: Yes In addition, reports of radiographic and diagnostic studies were read: Yes Assessment and Plan - Diagnosis (1) Acute and chronic respiratory failure ([id number]) Qualifiers: Respiratory failure complication: hypoxia Qualified Code(s): J96.21 - Acute and chronic respiratory failure with hypoxia Is this a current diagnosis for this admission?: Yes Plan: * Continue high flow nasal cannula during the day. Maintain FiO2 100%. Wean flow rate as tolerated. * CPAP 8 nightly. Titrate FiO2 to maintain SPO2 89-93%. * Continue steroids. * Diurese today. (2) Paroxysmal atrial fibrillation Is this a current diagnosis for this admission?: Yes Plan: * Continue Eliquis. * On (home med) amiodarone. (3) Bullous emphysema Is this a current diagnosis for this admission?: Yes Plan: DuoNeb/budesonide scheduled. (4) C. difficile diarrhea Is this a current diagnosis for this admission?: Yes Plan: On vancomycin 125 mg p.o. every 6 hours. (5) Pneumonia Qualifiers: Pneumonia type: due to unspecified organism Laterality: right Lung location: lower lobe of lung Qualified Code(s): J18.9 - Pneumonia, unspecified organism Is this a current diagnosis for this admission?: Yes Plan: * On Rocephin/Zithromax. We will stop after 5-day course in the absence of compelling indication to continue antibiotic therapy. * Trach aspirate isolated in normal respiratory macrina. * CBC in a.m. . (6) Cigarette smoker Is this a current diagnosis for this admission?: Yes Plan Summary: OK to transfer to [facility] with continuous pulse oximetry from pulmonary standpoint. Critical Time Critical Time (minutes): 60 Level of Care: ICU -: 1. The care of a critical patient is a dynamic process. This note is a physician representative synopsis but static in nature. The timeframe for treatments given in order is not necessarily the actual time these treatments may have been done. 2. This patient requires critical care secondary to ongoing requirements for therapy not offered or safe outside the critical care environment. Transfer to a lower level of care will result in altered life or limb morbidity and mortality. 3. Multidisciplinary rounds completed. 4. ABCDE bundle addressed.
[2020-07-31] MEDS: ATORVASTATIN CALCIUM 10 MG TABLET PO SCH (22:24)
[2020-08-01] MEDS: IPRATROPIUM/ALBUTEROL 0.5-2.5 MG/3 ML AMPUL NEB SCH ×4 (02:50→21:44)
[2020-08-01] MEDS: BUDESONIDE NEB 0.5 MG/2 ML AMPUL NEB SCH ×4 (02:50→21:44)
[2020-08-01] MEDS: VANCOMYCIN HCL INJ 500 MG VIAL PO SCH ×4 (05:00→23:00)
[2020-08-01] MEDS ORDERED: FUROSEMIDE INJ/PF 40 MG/4 ML SDV IV ONE (05:26)
[2020-08-01 05:40] LABS: ANION GAP 9 (5-19); BLOOD UREA NITROGEN 40 mg/dL (7-20); CARBON DIOXIDE 34 mmol/L (22-30); CHLORIDE 93 mmol/L (98-107); GLUCOSE 225 mg/dL (75-110); POTASSIUM 4.6 mmol/L (3.6-5.0)
[2020-08-01] MEDS: FUROSEMIDE INJ/PF 40 MG/4 ML SDV IV SCH (09:05)
[2020-08-01] MEDS: FAMOTIDINE 20 MG TABLET PO SCH ×2 (09:25→21:49)
[2020-08-01] MEDS: METOPROLOL TARTRATE 50 MG TABLET PO SCH ×2 (09:25→21:49)
[2020-08-01] MEDS: APIXABAN 5 MG TABLET PO SCH ×2 (09:25→21:49)
[2020-08-01] MEDS: METHYLPREDNISOLONE INJ 125 MG/2 ML SDV IV SCH ×2 (09:25→21:50)
[2020-08-01] MEDS: AMIODARONE HCL 200 MG TABLET PO SCH ×2 (09:25→21:50)
[2020-08-01] MEDS: CEFEPIME 1 GM/D5W RTU 1 GM/50 ML RTUPB IV SCH ×2 (09:25→22:19)
[2020-08-01] MEDS: CLOBETASOL PROPIONATE 0.05% OINTMENT 15 GM TP SCH (09:26)
[2020-08-01] MEDS: ASPIRIN 81 MG TABLET, ENT COATED PO SCH (09:26)
[2020-08-01] MEDS: ESCITALOPRAM OXALATE 10 MG TABLET PO SCH (09:26)
--- NOTE | 2020-08-01 09:46 | PDOC CRITICAL CARE PROG REPORT ---
General Date:: 08/01/20 ICU Day:: 4 Hospital Day:: 5 Resuscitation Status: Full Code Events in the past 12 to 24 Hours:: On high flow and CPAP. Trying simple mask today. Review of systems relevant to events:: Pulmonary. Reason for ICU Addmission:: COPD exacerbation, CHF - Medications: Medications reviewed and adjusted accordingly: Yes Vasopressors:: None Sedation:: None Physical Exam Vital Signs: Temp Pulse Resp BP Pulse Ox 98.7 F 57 L 16 136/83 H 88 L 08/01/20 08:00 08/01/20 07:00 08/01/20 08:00 08/01/20 07:12 08/01/20 08:00 Intake & Output 07/31/20 08/01/20 08/02/20 06:59 06:59 06:59 Intake Total 350 1900 Output Total 2075 3104 Balance -1725 -1204 Weight 119.1 kg 119 kg Weight/Height Weight 119 kg Height 5 ft 8 in General appearance: PRESENT: no acute distress, cooperative Head exam: PRESENT: atraumatic, normocephalic Eye exam: PRESENT: conjunctiva pink, EOMI, PERRLA. ABSENT: scleral icterus Ear exam: PRESENT: normal external ear exam Mouth exam: PRESENT: moist, tongue midline Respiratory exam: PRESENT: clear to auscultation celia, decreased breath sounds. ABSENT: rales, rhonchi, wheezes Cardiovascular exam: PRESENT: RRR. ABSENT: diastolic murmur, rubs, systolic murmur GI/Abdominal exam: PRESENT: normal bowel sounds, soft. ABSENT: distended, guarding, mass, organolmegaly, rebound, tenderness Rectal exam: PRESENT: deferred Extremities exam: PRESENT: full ROM. ABSENT: calf tenderness, clubbing, pedal edema Musculoskeletal exam: PRESENT: normal inspection Neurological exam: PRESENT: alert, awake, oriented to person, oriented to place, oriented to time, oriented to situation, CN II-XII grossly intact. ABSENT: motor sensory deficit Psychiatric exam: PRESENT: appropriate affect, normal mood. ABSENT: homicidal ideation, suicidal ideation Skin exam: PRESENT: dry, intact, warm. ABSENT: cyanosis, rash Laboratory/Radiographs Laboratory Results: 07/31/20 04:28 08/01/20 04:28 07/31/20 08/01/20 12:05 04:28 Carbonic Acid 1.47 H HCO3/H2CO3 Ratio 22:1 ABG pH 7.46 H ABG pCO2 49.0 H ABG pO2 44.8 L ABG HCO3 33.7 H ABG O2 Saturation 82.5 L ABG Base Excess 8.0 FiO2 100% Sodium 135.9 L Potassium 4.6 Chloride 93 L Carbon Dioxide 34 H Anion Gap 9 BUN 40 H Creatinine 0.96 Est GFR ( Amer) > 60 Glucose 225 H Calcium 9.0 Magnesium 2.7 H 07/27/20 21:47 Blood Blood Culture (PCR) - Final Staphylococcus Species 07/27/20 21:47 Blood Blood Culture - Final Staphylococcus Epidermidis Corynebacterium Species 07/27/20 07/27/20 07/28/20 14:55 14:55 03:42 Creatine Kinase 187 H Troponin I < 0.012 < 0.012 NT-Pro-B Natriuret Pep 185 H Impressions: Chest X-Ray 07/30/20 05:00 IMPRESSION: Severe bullous emphysema in the left lung with compressive atelectasis at the bases. No change. All labs, radiographs, diagnostic studies and EKGs were personally reviewed: Yes In addition, reports of radiographic and diagnostic studies were read: Yes Assessment and Plan - Diagnosis (1) Acute on chronic respiratory failure with hypoxemia Is this a current diagnosis for this admission?: Yes Plan: He has not been hypercarbic. He has been somewhat hypoxic but only to an O2 saturation of 89-92%. He is doing well on high flow, will try simple mask. CPAP at night for SHIRA. 07/28 Diuresesd and did not need bipap. 07/29 Slept on CPAP and did well. 07/30 Found to have Cdif. No diarrhea or abd pain today. On PO vancomycin. (2) C. difficile diarrhea Is this a current diagnosis for this admission?: Yes Plan: PO vancomycin. No pain or diarrhea. (3) Paroxysmal atrial fibrillation Is this a current diagnosis for this admission?: Yes Plan: On amiodarone at home dose. (4) COPD exacerbation Is this a current diagnosis for this admission?: Yes Plan: He is on steroids. Not wheezing. Start prednisone tomorrow. (5) Obesity (BMI 30-39.9) Is this a current diagnosis for this admission?: Yes Plan: Chronic Plan Summary: Will try simple mask today and downgrade. Critical Time Critical Time (minutes): 35 Level of Care: IMCU Anticipated discharge: Home Anticipated DC Timeframe: Other -: 1. The care of a critical patient is a dynamic process. This note is a loan representative synopsis but static in nature. The timeframe for treatments given in order is not necessarily the actual time these treatments may have been done. 2. This patient requires critical care secondary to ongoing requirements for therapy not offered or safe outside the critical care environment. Transfer to a lower level of care will result in altered life or limb morbidity and mortality. 3. Multidisciplinary rounds completed. 4. ABCDE bundle addressed.
[2020-08-01] MEDS: AZITHROMYCIN 500 MG in DEXTROSE 5%-WATER 250 ML IV SCH (12:38)
[2020-08-01] MEDS: ATORVASTATIN CALCIUM 10 MG TABLET PO SCH (21:50)
[2020-08-02] MEDS: BUDESONIDE NEB 0.5 MG/2 ML AMPUL NEB SCH ×4 (02:50→20:46)
[2020-08-02] MEDS: IPRATROPIUM/ALBUTEROL 0.5-2.5 MG/3 ML AMPUL NEB SCH ×4 (02:51→20:46)
[2020-08-02] MEDS: VANCOMYCIN HCL INJ 500 MG VIAL PO SCH ×4 (05:15→23:23)
[2020-08-02] MEDS: FAMOTIDINE 20 MG TABLET PO SCH ×2 (10:17→21:36)
[2020-08-02] MEDS: METHYLPREDNISOLONE INJ 125 MG/2 ML SDV IV SCH ×2 (10:17→21:36)
[2020-08-02] MEDS: AMIODARONE HCL 200 MG TABLET PO SCH ×2 (10:17→21:36)
[2020-08-02] MEDS: ASPIRIN 81 MG TABLET, ENT COATED PO SCH (10:17)
[2020-08-02] MEDS: CEFEPIME 1 GM/D5W RTU 1 GM/50 ML RTUPB IV SCH ×2 (10:18→21:37)
[2020-08-02] MEDS: APIXABAN 5 MG TABLET PO SCH ×2 (10:18→21:36)
[2020-08-02] MEDS: METOPROLOL TARTRATE 50 MG TABLET PO SCH ×2 (10:18→21:36)
[2020-08-02] MEDS: ESCITALOPRAM OXALATE 10 MG TABLET PO SCH (10:18)
[2020-08-02] MEDS: FUROSEMIDE INJ/PF 40 MG/4 ML SDV IV SCH (10:38)
[2020-08-02] MEDS: CLOBETASOL PROPIONATE 0.05% OINTMENT 15 GM TP SCH (11:50)
[2020-08-02] MEDS: AZITHROMYCIN 500 MG in DEXTROSE 5%-WATER 250 ML IV SCH (11:50)
--- NOTE | 2020-08-02 14:56 | PDOC PROGRESS REPORT ---
Subjective Date:: 08/02/20 Subjective:: No adverse events overnight. No new complaints. He is napping a lot during the day. He is on 12 L of oxygen and looks comfortable. He says he wears 5 L of oxygen at home. He has not had any bowel movements today. Reason For Visit: ACUTE AND CHRONIC RESPIRATORY FAILURE(ACUTE-ON Physical Exam Vital Signs: Temp Pulse Resp BP Pulse Ox 98.1 F 62 20 123/95 H 94 08/02/20 08:29 08/02/20 14:27 08/02/20 14:27 08/02/20 08:29 08/02/20 14:27 Intake & Output 08/01/20 08/02/20 08/03/20 06:59 06:59 06:59 Intake Total 1900 1112 1017 Output Total 3104 750 400 Balance -1204 362 617 Weight 119 kg 116.2 kg General appearance: PRESENT: no acute distress, cooperative, disheveled, morbidly obese Teeth exam: PRESENT: poor dentation Respiratory exam: PRESENT: decreased breath sounds, prolonged expiratory phas, symmetrical, unlabored, wheezes - Faint end expiratory. ABSENT: accessory muscle use, chest wall tenderness, crackles, rhonchi, tachypnea Cardiovascular exam: PRESENT: RRR, +S1, +S2 Pulses: PRESENT: normal carotid pulses Vascular exam: PRESENT: normal capillary refill GI/Abdominal exam: PRESENT: normal bowel sounds, soft, other - Pendulous abdominal pannus. ABSENT: distended, guarding, rebound, tenderness Extremities exam: ABSENT: clubbing, pedal edema Musculoskeletal exam: PRESENT: normal inspection. ABSENT: deformity Neurological exam: PRESENT: awake, oriented to person, oriented to place, oriented to situation Psychiatric exam: PRESENT: flat affect Skin exam: PRESENT: dry, warm Results Laboratory Results: 07/31/20 04:28 08/01/20 04:28 07/27/20 14:55 Blood Blood Culture - Final NO GROWTH IN 5 DAYS 07/27/20 07/27/20 07/28/20 14:55 14:55 03:42 Creatine Kinase 187 H Troponin I < 0.012 < 0.012 NT-Pro-B Natriuret Pep 185 H Impressions: Chest X-Ray 07/30/20 05:00 IMPRESSION: Severe bullous emphysema in the left lung with compressive atelectasis at the bases. No change. Assessment and Plan - Diagnosis (1) Acute and chronic respiratory failure ([id number]) Qualifiers: Respiratory failure complication: hypoxia Qualified Code(s): J96.21 - Acute and chronic respiratory failure with hypoxia Is this a current diagnosis for this admission?: Yes (2) Bullous emphysema Is this a current diagnosis for this admission?: Yes (3) C. difficile diarrhea Is this a current diagnosis for this admission?: Yes (4) Cigarette smoker Is this a current diagnosis for this admission?: Yes (5) Paroxysmal atrial fibrillation Is this a current diagnosis for this admission?: Yes (6) COPD exacerbation Is this a current diagnosis for this admission?: Yes - Plan Summary Summary: He has been transitioned over to prednisone. He is on nasal cannula, currently at 12 L. We will wean this down as tolerated. He has been on oral vancomycin because he tested positive for C. difficile diarrhea. He has had a very good response and said when I talked to him earlier that he had not yet had a bowel movement today. We will continue with his oral vancomycin. We will continue other supportive care. - Time Time Spent with patient: 15-24 minutes Anticipated Discharge Disposition: Home with Home Health Anticipated Discharge Timeframe: within 72 hours
[2020-08-02] MEDS: ATORVASTATIN CALCIUM 10 MG TABLET PO SCH (21:36)
[2020-08-03] MEDS: BUDESONIDE NEB 0.5 MG/2 ML AMPUL NEB SCH ×4 (01:29→20:43)
[2020-08-03] MEDS: IPRATROPIUM/ALBUTEROL 0.5-2.5 MG/3 ML AMPUL NEB SCH ×4 (01:29→20:43)
[2020-08-03] MEDS: VANCOMYCIN HCL INJ 500 MG VIAL PO SCH ×3 (05:12→17:21)
[2020-08-03] MEDS: METHYLPREDNISOLONE INJ 125 MG/2 ML SDV IV SCH ×2 (09:30→21:24)
[2020-08-03] MEDS: CEFEPIME 1 GM/D5W RTU 1 GM/50 ML RTUPB IV SCH ×2 (09:32→21:27)
[2020-08-03] MEDS: FUROSEMIDE INJ/PF 40 MG/4 ML SDV IV SCH (09:32)
[2020-08-03] MEDS: METOPROLOL TARTRATE 50 MG TABLET PO SCH ×2 (09:34→21:26)
[2020-08-03] MEDS: APIXABAN 5 MG TABLET PO SCH ×2 (09:34→21:26)
[2020-08-03] MEDS: ASPIRIN 81 MG TABLET, ENT COATED PO SCH (09:34)
[2020-08-03] MEDS: AMIODARONE HCL 200 MG TABLET PO SCH ×2 (09:34→21:26)
[2020-08-03] MEDS: FAMOTIDINE 20 MG TABLET PO SCH ×2 (09:34→21:26)
[2020-08-03] MEDS: ESCITALOPRAM OXALATE 10 MG TABLET PO SCH (09:34)
[2020-08-03] MEDS: CLOBETASOL PROPIONATE 0.05% OINTMENT 15 GM TP SCH (09:35)
--- NOTE | 2020-08-03 15:58 | PDOC PROGRESS REPORT ---
Subjective Date:: 08/03/20 Subjective:: No adverse events overnight. No new complaints. He said he is only had 1 bowel movement the past 24 hours. He said it was kind of loose but it was not watery. He still on 12 L on the Oxymizer. His oxygen saturations dropped low earlier and it was because he was laying on the tube and had kinked it. He said he is normally on about 6 L at home. Reason For Visit: ACUTE AND CHRONIC RESPIRATORY FAILURE(ACUTE-ON Physical Exam Vital Signs: Temp Pulse Resp BP Pulse Ox 98.5 F 65 16 118/73 98 08/03/20 11:39 08/03/20 14:00 08/03/20 13:43 08/03/20 11:39 08/03/20 13:43 Intake & Output 08/02/20 08/03/20 08/04/20 06:59 06:59 06:59 Intake Total 1112 1885 406 Output Total 750 1950 1500 Balance 810 -46 -1094 Weight 116.2 kg 115.9 kg General appearance: PRESENT: no acute distress, cooperative, disheveled, morbidly obese Teeth exam: PRESENT: poor dentation Respiratory exam: PRESENT: decreased breath sounds, prolonged expiratory phas, symmetrical, unlabored, wheezes - Faint end expiratory. ABSENT: accessory muscle use, chest wall tenderness, crackles, rhonchi, tachypnea Cardiovascular exam: PRESENT: RRR, +S1, +S2 Pulses: PRESENT: normal carotid pulses Vascular exam: PRESENT: normal capillary refill GI/Abdominal exam: PRESENT: normal bowel sounds, soft, other - Pendulous abdominal pannus. ABSENT: distended, guarding, rebound, tenderness Extremities exam: ABSENT: clubbing, pedal edema Musculoskeletal exam: PRESENT: normal inspection. ABSENT: deformity Neurological exam: PRESENT: awake, oriented to person, oriented to place, oriented to situation Psychiatric exam: PRESENT: flat affect Skin exam: PRESENT: dry, warm Results Laboratory Results: 07/31/20 04:28 08/01/20 04:28 07/27/20 07/27/20 07/28/20 14:55 14:55 03:42 Creatine Kinase 187 H Troponin I < 0.012 < 0.012 NT-Pro-B Natriuret Pep 185 H Impressions: Chest X-Ray 07/30/20 05:00 IMPRESSION: Severe bullous emphysema in the left lung with compressive atelectasis at the bases. No change. Assessment and Plan - Diagnosis (1) Acute and chronic respiratory failure ([id number]) Qualifiers: Respiratory failure complication: hypoxia Qualified Code(s): J96.21 - Acute and chronic respiratory failure with hypoxia Is this a current diagnosis for this admission?: Yes (2) Bullous emphysema Is this a current diagnosis for this admission?: Yes (3) C. difficile diarrhea Is this a current diagnosis for this admission?: Yes (4) Cigarette smoker Is this a current diagnosis for this admission?: Yes (5) Paroxysmal atrial fibrillation Is this a current diagnosis for this admission?: Yes (6) COPD exacerbation Is this a current diagnosis for this admission?: Yes - Plan Summary Summary: He has been transitioned over to prednisone. He is on nasal cannula, currently at 12 L. We will wean this down as tolerated. He has been on oral vancomycin because he tested positive for C. difficile diarrhea. He has had a very good response. At this point it seems like the limiting factor here is his oxygen requirement. Once we get him down closer to what he is on at home he can be discharged. - Time Time Spent with patient: 15-24 minutes Anticipated Discharge Disposition: Home with Home Health Anticipated Discharge Timeframe: Undetermined
[2020-08-03] MEDS: ATORVASTATIN CALCIUM 10 MG TABLET PO SCH (21:26)
[2020-08-04] MEDS: VANCOMYCIN HCL INJ 500 MG VIAL PO SCH ×4 (00:39→18:37)
[2020-08-04] MEDS: IPRATROPIUM/ALBUTEROL 0.5-2.5 MG/3 ML AMPUL NEB SCH ×4 (01:33→20:41)
[2020-08-04] MEDS: BUDESONIDE NEB 0.5 MG/2 ML AMPUL NEB SCH ×4 (01:34→20:41)
[2020-08-04] MEDS: ASPIRIN 81 MG TABLET, ENT COATED PO SCH (10:07)
[2020-08-04] MEDS: METOPROLOL TARTRATE 50 MG TABLET PO SCH ×2 (10:07→21:25)
[2020-08-04] MEDS: ESCITALOPRAM OXALATE 10 MG TABLET PO SCH (10:07)
[2020-08-04] MEDS: APIXABAN 5 MG TABLET PO SCH ×2 (10:07→21:25)
[2020-08-04] MEDS: METHYLPREDNISOLONE INJ 125 MG/2 ML SDV IV SCH ×2 (10:07→21:26)
[2020-08-04] MEDS: FAMOTIDINE 20 MG TABLET PO SCH ×2 (10:07→21:25)
[2020-08-04] MEDS: AMIODARONE HCL 200 MG TABLET PO SCH ×2 (10:07→21:25)
[2020-08-04] MEDS: FUROSEMIDE INJ/PF 40 MG/4 ML SDV IV SCH (10:08)
[2020-08-04] MEDS: CLOBETASOL PROPIONATE 0.05% OINTMENT 15 GM TP SCH (10:08)
--- NOTE | 2020-08-04 16:24 | PDOC PROGRESS REPORT ---
Subjective Date:: 08/04/20 Subjective:: No adverse events overnight. No new complaints. He is feeling pretty good over all. He is only having approximately 1 bowel movement a day at this point. He was down to 9.5 L on the Oxymizer. Reason For Visit: ACUTE AND CHRONIC RESPIRATORY FAILURE(ACUTE-ON Physical Exam Vital Signs: Temp Pulse Resp BP Pulse Ox 98.7 F 62 18 125/79 96 08/04/20 12:19 08/04/20 14:01 08/04/20 14:01 08/04/20 12:19 08/04/20 14:01 Intake & Output 08/03/20 08/04/20 08/05/20 06:59 06:59 06:59 Intake Total 1885 1382 360 Output Total 1950 2850 900 Balance -65 -1468 -540 Weight 115.9 kg 115.7 kg General appearance: PRESENT: no acute distress, cooperative, disheveled, morbidly obese Teeth exam: PRESENT: poor dentation Respiratory exam: PRESENT: decreased breath sounds, prolonged expiratory phas, symmetrical, unlabored, wheezes - Faint end expiratory. ABSENT: accessory muscle use, chest wall tenderness, crackles, rhonchi, tachypnea Cardiovascular exam: PRESENT: RRR, +S1, +S2 Pulses: PRESENT: normal carotid pulses Vascular exam: PRESENT: normal capillary refill GI/Abdominal exam: PRESENT: normal bowel sounds, soft, other - Pendulous abdominal pannus. ABSENT: distended, guarding, rebound, tenderness Extremities exam: ABSENT: clubbing, pedal edema Musculoskeletal exam: PRESENT: normal inspection. ABSENT: deformity Neurological exam: PRESENT: awake, oriented to person, oriented to place, oriented to situation Psychiatric exam: PRESENT: flat affect Skin exam: PRESENT: dry, warm Results Laboratory Results: 07/31/20 04:28 08/01/20 04:28 07/27/20 07/27/20 07/28/20 14:55 14:55 03:42 Creatine Kinase 187 H Troponin I < 0.012 < 0.012 NT-Pro-B Natriuret Pep 185 H Impressions: Chest X-Ray 07/30/20 05:00 IMPRESSION: Severe bullous emphysema in the left lung with compressive atelectasis at the bases. No change. Assessment and Plan - Diagnosis (1) Acute and chronic respiratory failure ([id number]) Qualifiers: Respiratory failure complication: hypoxia Qualified Code(s): J96.21 - Acute and chronic respiratory failure with hypoxia Is this a current diagnosis for this admission?: Yes (2) Bullous emphysema Is this a current diagnosis for this admission?: Yes (3) C. difficile diarrhea Is this a current diagnosis for this admission?: Yes (4) Cigarette smoker Is this a current diagnosis for this admission?: Yes (5) Paroxysmal atrial fibrillation Is this a current diagnosis for this admission?: Yes (6) COPD exacerbation Is this a current diagnosis for this admission?: Yes - Plan Summary Summary: He has been transitioned over to prednisone. He is on nasal cannula, currently at 9.5 L. We will wean this down as tolerated. He has been on oral vancomycin because he tested positive for C. difficile diarrhea. He has had a very good response. At this point it seems like the limiting factor here is his oxygen requirement. Once we get him down closer to what he is on at home he can be discharged. If we can wean him down some more this could be tomorrow. - Time Time Spent with patient: 15-24 minutes Anticipated Discharge Disposition: Home with Home Health Anticipated Discharge Timeframe: within 48 hours
[2020-08-04] MEDS: ATORVASTATIN CALCIUM 10 MG TABLET PO SCH (21:25)
[2020-08-05] MEDS: VANCOMYCIN HCL INJ 500 MG VIAL PO SCH ×3 (00:46→12:59)
[2020-08-05] MEDS: BUDESONIDE NEB 0.5 MG/2 ML AMPUL NEB SCH ×3 (02:10→13:29)
[2020-08-05] MEDS: IPRATROPIUM/ALBUTEROL 0.5-2.5 MG/3 ML AMPUL NEB SCH ×3 (02:10→13:29)
[2020-08-05] MEDS: APIXABAN 5 MG TABLET PO SCH (09:44)
[2020-08-05] MEDS: ESCITALOPRAM OXALATE 10 MG TABLET PO SCH (09:44)
[2020-08-05] MEDS: ASPIRIN 81 MG TABLET, ENT COATED PO SCH (09:44)
[2020-08-05] MEDS: AMIODARONE HCL 200 MG TABLET PO SCH (09:44)
[2020-08-05] MEDS: FAMOTIDINE 20 MG TABLET PO SCH (09:44)
[2020-08-05] MEDS: METHYLPREDNISOLONE INJ 125 MG/2 ML SDV IV SCH (09:45)
[2020-08-05] MEDS: METOPROLOL TARTRATE 50 MG TABLET PO SCH (09:45)
[2020-08-05] MEDS: FUROSEMIDE INJ/PF 40 MG/4 ML SDV IV SCH (09:45)
[2020-08-05] MEDS: CLOBETASOL PROPIONATE 0.05% OINTMENT 15 GM TP SCH (10:01)
[2020-08-05 16:37] VITALS: BP 135/77
--- NOTE | 2020-08-05 17:20 | PDOC DISCHARGE SUMMARY ---
Impression - Admit/DC Date/PCP Admission Date/Primary Care Provider: 07/27/20 17:13 BRODIE MONTEIRO MD Discharge Date: 08/05/20 - Discharge Diagnosis (1) Acute and chronic respiratory failure ([id number]) Is this a current diagnosis for this admission?: Yes (2) Bullous emphysema Is this a current diagnosis for this admission?: Yes (3) C. difficile diarrhea Is this a current diagnosis for this admission?: Yes (4) Cigarette smoker Is this a current diagnosis for this admission?: Yes (5) Paroxysmal atrial fibrillation Is this a current diagnosis for this admission?: Yes (6) COPD exacerbation Is this a current diagnosis for this admission?: Yes - Assessment Summary: He has been transitioned over to prednisone. He is on nasal cannula, currently at 9.5 L. We will wean this down as tolerated. He has been on oral vancomycin because he tested positive for C. difficile diarrhea. He has had a very good response. At this point it seems like the limiting factor here is his oxygen requirement. Once we get him down closer to what he is on at home he can be discharged. If we can wean him down some more this could be tomorrow. - Additional Information Resuscitation Status: Full Code Discharge Diet: Cardiac Discharge Activity: Energy Conservation, Slowly Increase Activity Referrals: BRODIE MONTEIRO MD [Primary Care Provider] - 08/17/20 9:30 am Prescriptions: Prednisone [Deltasone 20 mg Tablet] 40 mg PO DAILY #10 tablet Vancomycin HCl [Vancocin Inj 500 mg Vial] 125 mg PO Q6 #8 vial Home Medications: Aspirin [Aspirin EC] 81 mg PO DAILY 10/11/17 Atorvastatin Calcium [Lipitor 10 mg Tablet] 10 mg PO QHS 10/11/17 Budesonide/Formoterol Fumarate [Symbicort HFA 160-4.5 mcg Inhaler 6 gm] 2 puff IH Q12 09/08/18 Amiodarone HCl [Amiodarone HCl 400 mg Tablet] 200 mg PO Q12 #30 tablet 09/10/18 Hydrochlorothiazide [Hydrodiuril 25 mg Tablet] 25 mg PO QAM 06/16/20 Albuterol Sulfate [Albuterol Sulfate Hfa] 2 puff IH Q6HP PRN 07/27/20 Albuterol Sulfate [Ventolin 0.083% Neb 2.5 mg/3 mL Ampul] 1 vial IH Q8 07/27/20 Apixaban [Eliquis 5 mg Tablet] 5 mg PO Q12 07/27/20 Escitalopram Oxalate [Lexapro 10 mg Tablet] 10 mg PO DAILY 07/27/20 Metoprolol Tartrate [Lopressor 50 mg Tablet] 50 mg PO Q12 07/27/20 Tiotropium [place] [Spiriva Respimat] 2 spray IH DAILY 07/27/20 Prednisone [Deltasone 20 mg Tablet] 40 mg PO DAILY #10 tablet 08/05/20 Vancomycin HCl [Vancocin Inj 500 mg Vial] 125 mg PO Q6 #8 vial 08/05/20 History of Present Illiness History of Present Illness: MOHSEN EDGE is a 55 year old male followed by Dr. Monteiro with history of heavy cigarette smoking and COPD with as needed use of oxygen presents now with increasing shortness of breath over several days associated with production of yellow sputum and intermittent low-grade temperature. He denies known Covid exposure. Says that he had a Covid nasal swab which was negative about 1 month ago when he underwent preop testing for carpal tunnel repair. He denies chest pain. He denies vomiting. He continues to smoke about 1 pack of cigarettes per day. Patient has a history of paroxysmal atrial fibrillation and is on Eliquis. He says he is fully compliant with his medication. Hospital Course Hospital Course: He completed a course of antibiotics for his pneumonia and will complete a course of prednisone at home for his COPD exacerbation. He was on high level of oxygen support for a few days but has gradually been transitioned down back to the 6 L that he is on at home. Unfortunately, he developed C. difficile diarrhea. He had an excellent response to oral vancomycin and needs to take 8 more days of that at home. The limiting factor in getting him discharged was getting his oxygen level back down to what he was on at home. He asked if we can get him portable oxygen tanks along with the fitting for a oxygen concentrator that will allow him to fill the portable tanks. Case management got this arranged for him. He will follow-up with his primary care provider in 1 to 2 weeks. His labs and examination were reassuring and he was discharged in stable condition. Physical Exam Vital Signs: Temp Pulse Resp BP Pulse Ox 98.7 F 65 21 H 135/77 H 93 08/05/20 15:27 08/05/20 15:27 08/05/20 15:27 08/05/20 15:27 08/05/20 15:27 Intake & Output 08/04/20 08/05/20 08/06/20 06:59 06:59 06:59 Intake Total 1382 1090 590 Output Total 2850 2950 625 Balance -1468 -1860 -35 Weight 115.7 kg 114.8 kg General appearance: PRESENT: no acute distress, cooperative, disheveled, morbidly obese Teeth exam: PRESENT: poor dentation Respiratory exam: PRESENT: decreased breath sounds, prolonged expiratory phas, symmetrical, unlabored, wheezes - Faint end expiratory. ABSENT: accessory muscle use, chest wall tenderness, crackles, rhonchi, tachypnea Cardiovascular exam: PRESENT: RRR, +S1, +S2 Pulses: PRESENT: normal carotid pulses Vascular exam: PRESENT: normal capillary refill GI/Abdominal exam: PRESENT: normal bowel sounds, soft, other - Pendulous abdominal pannus. ABSENT: distended, guarding, rebound, tenderness Extremities exam: ABSENT: clubbing, pedal edema Musculoskeletal exam: PRESENT: normal inspection. ABSENT: deformity Neurological exam: PRESENT: awake, oriented to person, oriented to place, oriented to situation Psychiatric exam: PRESENT: flat affect Skin exam: PRESENT: dry, warm Results Laboratory Results: WBC 19.7 10^3/uL (4.0-10.5) H 07/31/20 04:28 RBC 5.04 10^6/uL (4.35-5.55) 07/31/20 04:28 Hgb 17.1 g/dL (13.5-17.0) H 07/31/20 04:28 Hct 50.1 % (37.9-51.0) 07/31/20 04:28 MCV 99 fl (80-97) H 07/31/20 04:28 MCH 34.0 pg (27.0-33.4) H 07/31/20 04:28 MCHC 34.1 g/dL (32.0-36.0) 07/31/20 04:28 RDW 13.6 % (11.5-14.0) 07/31/20 04:28 Plt Count 297 10^3/uL (150-450) 07/31/20 04:28 Lymph % (Auto) Not Reportable 07/31/20 04:28 [place] % (Auto) Not Reportable 07/31/20 04:28 Eos % (Auto) Not Reportable 07/31/20 04:28 Baso % (Auto) Not Reportable 07/31/20 04:28 Absolute Neuts (auto) Not Reportable 07/31/20 04:28 Absolute Lymphs (auto) Not Reportable 07/31/20 04:28 Absolute Monos (auto) Not Reportable 07/31/20 04:28 Absolute Eos (auto) Not Reportable 07/31/20 04:28 Absolute Basos (auto) Not Reportable 07/31/20 04:28 Total Counted 100 07/31/20 04:28 Seg Neutrophils % Not Reportable 07/31/20 04:28 Seg Neuts % (Manual) 89 % (42-78) H 07/31/20 04:28 Lymphocytes % (Manual) 6 % (13-45) L 07/31/20 04:28 Monocytes % (Manual) 5 % (3-13) 07/31/20 04:28 Eosinophils % (Manual) 0 % (0-6) 07/31/20 04:28 Basophils % (Manual) 0 % (0-2) 07/31/20 04:28 Abs Neuts (Manual) 17.5 10^3/uL (1.7-8.2) H 07/31/20 04:28 Abs Lymphs (Manual) 1.2 10^3/uL (0.5-4.7) 07/31/20 04:28 Abs Monocytes (Manual) 1.0 10^3/uL (0.1-1.4) 07/31/20 04:28 Absolute Eos (Manual) 0.0 10^3/uL (0.0-0.6) 07/31/20 04:28 Abs Basophils (Manual) 0.0 10^3/uL (0.0-0.2) 07/31/20 04:28 Toxic Granulation 1+ 07/28/20 03:42 Platelet Comment ADEQUATE 07/31/20 04:28 Polychromasia SLIGHT 07/28/20 03:42 Poikilocytosis SLIGHT 07/28/20 03:42 Macrocytosis SLIGHT 07/31/20 04:28 Tear Drop Cells SLIGHT 07/28/20 03:42 Ovalocytes SLIGHT 07/28/20 03:42 PT 14.8 SEC (11.4-15.4) 07/28/20 03:42 INR 1.14 07/28/20 03:42 APTT 35.1 SEC (23.5-35.8) 07/28/20 03:42 D-Dimer < 0.27 ug/mL (0.00-0.50) 07/28/20 19:20 Carbonic Acid 1.47 mmol/L (1.05-1.35) H 07/31/20 12:05 HCO3/H2CO3 Ratio 22:1 07/31/20 12:05 ABG pH 7.46 (7.35-7.45) H 07/31/20 12:05 ABG pCO2 49.0 mmHg (35-45) H 07/31/20 12:05 ABG pO2 44.8 mmHg (80-100) L 07/31/20 12:05 ABG HCO3 33.7 mmol/L (20-24) H 07/31/20 12:05 ABG Total CO2 35.2 mmol/L (23-27) H 07/31/20 12:05 ABG O2 Saturation 82.5 % (94-98) L 07/31/20 12:05 ABG Base Excess 8.0 mmol/L 07/31/20 12:05 FiO2 100% 07/31/20 12:05 Sodium 135.9 mmol/L (137-145) L 08/01/20 04:28 Potassium 4.6 mmol/L (3.6-5.0) 08/01/20 04:28 Chloride 93 mmol/L (98-107) L 08/01/20 04:28 Carbon Dioxide 34 mmol/L (22-30) H 08/01/20 04:28 Anion Gap 9 (5-19) 08/01/20 04:28 BUN 40 mg/dL (7-20) H 08/01/20 04:28 Creatinine 0.96 mg/dL (0.52-1.25) 08/01/20 04:28 Est GFR ( Amer) > 60 (>60) 08/01/20 04:28 Est GFR (MDRD) Non-Af > 60 (>60) 08/01/20 04:28 Glucose 225 mg/dL (75-110) H 08/01/20 04:28 Hemoglobin A1c % 5.7 % (4.7-6.0) 07/28/20 03:42 Calcium 9.0 mg/dL (8.4-10.2) 08/01/20 04:28 Phosphorus 4.9 mg/dL (2.5-4.5) H 07/28/20 03:42 Magnesium 2.7 mg/dL (1.6-2.3) H 08/01/20 04:28 Ferritin 437.00 ng/mL (17.9-464.0) 07/28/20 19:20 Total Bilirubin 0.7 mg/dL (0.2-1.3) 07/28/20 03:42 Direct Bilirubin 0.4 mg/dL (0.0-0.4) 07/28/20 03:42 Neonat Total Bilirubin Not Reportable 07/28/20 03:42 Neonat Direct Bilirubin Not Reportable 07/28/20 03:42 Neonat Indirect Bili Not Reportable 07/28/20 03:42 AST 50 U/L (17-59) 07/28/20 03:42 ALT 54 U/L (<50) H 07/28/20 03:42 Alkaline Phosphatase 107 U/L (38-126) 07/28/20 03:42 Lactate Dehydrogenase 391 U/L (120-246) H 07/28/20 19:20 Creatine Kinase 187 U/L (55-170) H 07/27/20 14:55 Troponin I < 0.012 ng/mL 07/28/20 03:42 C-Reactive Protein 161.2 mg/L (<10.0) H 07/28/20 19:20 NT-Pro-B Natriuret Pep 185 pg/mL (<125) H 07/28/20 03:42 Total Protein 6.6 g/dL (6.3-8.2) 07/28/20 03:42 Albumin 3.6 g/dL (3.5-5.0) 07/28/20 03:42 [id number] Cancelled 07/28/20 03:42 Alpha-1-AT Phenotype Cancelled 07/28/20 03:42 Triglycerides 69 mg/dL (<150) 07/28/20 03:42 Cholesterol 129.41 mg/dL (0-200) 07/28/20 03:42 LDL Cholesterol Direct 84 mg/dL (<100) 07/28/20 03:42 VLDL Cholesterol 14.0 mg/dL (10-31) 07/28/20 03:42 HDL Cholesterol 34 mg/dL (>40) L 07/28/20 03:42 Amylase 47 U/L (30-110) 07/28/20 03:42 Lipase 33.1 U/L (23-300) 07/28/20 03:42 Interleukin 6 4.5 pg/mL (0.0-12.2) 07/28/20 19:20 TSH 0.06 uIU/mL (0.47-4.68) L 07/28/20 03:42 Stl C. Difficile GDH Ag POSITIVE (NEGATIVE) 07/29/20 14:30 Stl C.difficile Tox A&B NEGATIVE (NEGATIVE) 07/29/20 14:30 Stl C.difficile Tox PCR POSITIVE (NEGATIVE) 07/29/20 14:30 COVID-19 Source See comment 07/27/20 15:05 COVID-19 ([facility]) Not Detected (Not Detect) 07/27/20 15:05 Influenza A (Rapid) NEGATIVE (NEGATIVE) 07/27/20 15:04 Influenza B (Rapid) NEGATIVE (NEGATIVE) 07/27/20 15:04 07/27/20 07/28/20 14:55 03:42 Troponin I < 0.012 < 0.012 NT-Pro-B Natriuret Pep 185 H Impressions: Chest X-Ray 07/27/20 14:23 IMPRESSION: Obstructive lung disease Mid and lower lung alveolar and interstitial infiltrates, edema versus pneumonia Chest X-Ray 07/28/20 04:00 IMPRESSION: Obstructive lung disease. Persistent patchy bibasilar alveolar and interstitial infiltrates, similar compared to yesterday Chest X-Ray 07/30/20 05:00 IMPRESSION: Severe bullous emphysema in the left lung with compressive atelectasis at the bases. No change. Plan Time Spent: Greater than 30 Minutes Stroke Is this a Stroke Patient?: No Acute Heart Failure Is this a Heart Failure Patient?: No
== END 2020-08-05 17:08 | disposition home or self-care (01) | DRG 193 ==
LOC: ER 14:06 → EH 17:13 → ICU 22:00 → 3W 08-01 20:33
PROVIDERS: ADMIT Internal Medicine Critical Care Medicine; ATTEND Family Medicine
PROC: 5A09557 Assistance with Respiratory Ventilation, Greater than 96 Consecutive Hours, Continuous Positive Airway Pressure (ICD-10-PCS; principal; 2020-07-27)
PROC: B24BZZZ Ultrasonography of Heart with Aorta (ICD-10-PCS; 2020-07-28)
DX: J18.9 Pneumonia, unspecified organism (principal); J96.21 Acute and chronic respiratory failure with hypoxia; A04.72 Enterocolitis due to Clostridium difficile, not specified as recurrent; J43.8 Other emphysema; F17.210 Nicotine dependence, cigarettes, uncomplicated; I10 Essential (primary) hypertension; I48.0 Paroxysmal atrial fibrillation; G47.33 Obstructive sleep apnea (adult) (pediatric); E66.9 Obesity, unspecified; Z20.828 Contact with and (suspected) exposure to other viral communicable diseases; Z88.8 Allergy status to other drugs, medicaments and biological substances; Z82.49 Family history of ischemic heart disease and other diseases of the circulatory system; Z83.3 Family history of diabetes mellitus; Z79.51 Long term (current) use of inhaled steroids; Z79.01 Long term (current) use of anticoagulants; Z79.899 Other long term (current) drug therapy; Z99.81 Dependence on supplemental oxygen; Z71.6 Tobacco abuse counseling; Z72.89 Other problems related to lifestyle
CPT/HCPCS: 36415; 71045; 80048; 80053; 80061; 82103; 82104; 82150; 82550; 82728; 82803; 83036; 83520; 83615; 83690; 83735; 83880; 84100; 84443; 84484; 85025; 85027; 85379; 85610; 85730; 86140; 87040; 87070; 87077; 87150; 87186; 87205; 87324; 87449; 87493; 87635; 87804; 93005; 93010; 93306; 94640; 94660; 96374; 96375; 99285; 99291; C9803; J0456; J0692; J0696; J1940; J2930; J3370; J3480; J3490; J7060; J7613

== ENCOUNTER → 2020-10-07 | Outpatient (CLI) | payer BC ==
--- NOTE | 2020-10-07 12:52 | RADIOLOGY REPORT (SQ) ---
EXAM DESCRIPTION: CHEST 2 VIEWS IMAGES COMPLETED DATE/TIME: 10/07/2020 12:38 pm REASON FOR STUDY: RIGHT LOWER LOBE PNEUMONIA COMPARISON: 07/30/2020 EXAM PARAMETERS: NUMBER OF VIEWS: two views TECHNIQUE: Digital Frontal and Lateral radiographic views of the chest acquired. RADIATION DOSE: NA LIMITATIONS: none FINDINGS: LUNGS AND PLEURA: Unchanged severe bolus emphysema, left greater than right. Unchanged il l-defined right basilar opacities, likely atelectasis or scarring. No pleural effusion or pneumothor ax. MEDIASTINUM AND HILAR STRUCTURES: Stable right infrahilar opacities. HEART AND VASCULAR STRUCTURES: Stable. BONES: No acute findings. Multiple chronic right posterolateral rib fractures. HARDWARE: None in the chest. OTHER: No other significant finding. IMPRESSION: 1. Stable bolus emphysematous change, left greater right. 2. Stable bibasilar opacities, possibly atelectasis or scarring although superimposed infection is n ot entirely excluded. TECHNICAL DOCUMENTATION: JOB ID: [id number] 2010 [employer]- All Rights Reserved Reading location - IP/workstation name: [email or web address]
== END ==
LOC: RAD 11:54
PROVIDERS: ATTEND Internal Medicine Pulmonary Disease
DX: J18.9 Pneumonia, unspecified organism (principal); J43.9 Emphysema, unspecified; M84.48XD Pathological fracture, other site, subsequent encounter for fracture with routine healing
CPT/HCPCS: 71046